=== PATIENT | female | born 1935 | race African-American/Black ===

== ENCOUNTER 2017-05-15 12:02 | Inpatient (IN) | payer OTHER, MEDICARE ==
[~2017-05-15] VITALS: Ht 162.6 cm; Wt 77.3 kg
[~2017-05-15 12:02] MED LIST: PRED10PA2 PO
[2017-05-15 12:03] VITALS: BP 156/67; PULSE 61; RESP 16; TEMP 99.2; O2SAT 97
--- NOTE | 2017-05-15 12:26 | PD ---
Physical Exam Time Seen by Provider: 12:25 Narrative 82 y/o female who it seems recently had a cardiac cath early April at [facility]. She reports she has developed some soft tissue swelling in her groin and she was seen by her PCP Dr. Thibodeaux today and sent here. Denies active bleeding , SOB, chest pain. Vital signs reviewed. Seen at triage desk. Awaiting bed placement. Data Data Last Documented VS Vital Signs Date Time Temp Pulse Resp B/P Pulse Ox O2 Delivery O2 Flow Rate FiO2 05/15/17 12:03 99.2 61 16 156/67 97 Room Air [facility] Medical Record Reviewed: Yes Supervised Visit with SABINA: Bud Nixon May 15, 2017 12:26
--- NOTE | 2017-05-15 14:54 | PD ---
HPI Chief Complaint: Medical Clearance Time Seen by Provider: 14:53 Travel History International Travel<30 days: No Contact w/Intl Traveler<30days: No Traveled to known affect area: No History of Present Illness HPI 82-year-old female came to the emergency room sent by her primary care to rule out a pseudoaneurysm. Her daughter is here with her. Patient had a cardiac catheterization done by Dr. Bailey at [facility] on the April 21. There was just a 60% blockage noticed and no stents were put in. However after she went home she has noticed that the area where the sheath was put in was very swollen and ecchymotic. And the swelling has not gone down much. In fact she is also noticed that her entire right leg is swollen. Patient went to see her primary care today and was sent here for the ultrasound. Vital signs otherwise stable. [facility] Past Medical History Narrative Medical List of her past medical, surgical, social and family history is reviewed from the nursing note. Arthritis: Yes Cardiovascular Problems: Yes Diminished Hearing: No GERD: Yes Hypertension: Yes Immunizations Current: No Menopausal: Yes Past Surgical History Hysterectomy: Yes Social History Alcohol Use: No Tobacco Use: No Substance Use: No Allergies-Medications (Allergen,Severity, Reaction): Coded Allergies: No Known Allergies (Verified , 09/23/16) Comments No known drug allergies. Reported Meds & Prescriptions Reported Meds & Active Scripts Active Narrative Medication List of her home medications reviewed from the nursing note. Review of Systems Except as stated in HPI: all other systems reviewed are Neg Physical Exam Narrative GENERAL: Awake, alert, elderly, mild distress SKIN: Focused skin assessment warm/dry. Ecchymosis in the right groin area HEAD: Atraumatic. Normocephalic. EYES: Pupils equal and round. No scleral icterus. No injection or drainage. ENT: No nasal bleeding or discharge. Mucous membranes pink and moist. NECK: Trachea midline. No JVD. CARDIOVASCULAR: Regular rate and rhythm. No murmur appreciated. RESPIRATORY: No accessory muscle use. Clear to auscultation. Breath sounds equal bilaterally. GASTROINTESTINAL: Abdomen soft, non-tender, nondistended. Hepatic and splenic margins not palpable. MUSCULOSKELETAL: No obvious deformities. No clubbing. No cyanosis. Nonpitting edema of her entire right leg which is significantly more swollen than her left NEUROLOGICAL: Awake and alert. No obvious cranial nerve deficits. Motor grossly within normal limits. Normal speech. PSYCHIATRIC: Appropriate mood and affect; insight and judgment normal. Data Data Last Documented VS Vital Signs Date Time Temp Pulse Resp B/P Pulse Ox O2 Delivery O2 Flow Rate FiO2 05/15/17 12:03 99.2 61 16 156/67 97 Room Air Orders Us Leg Hematoma/Pseudoaneurysm (05/15/17 ) Complete Blood Count With Diff (05/15/17 14:59) Basic Metabolic Panel (Bmp) (05/15/17 14:59) Prothrombin Time / Inr (Pt) (05/15/17 14:59) Type And Screen (05/15/17 14:59) Sodium Chlor 0.9% 1000 Ml Inj (Ns 1000 M (05/15/17 16:00) Admit Order (Ed Use Only) (05/15/17 17:08) Labs Laboratory Tests Test 05/15/17 15:05 White Blood Count 8.6 TH/MM3 Red Blood Count 3.61 MIL/MM3 Hemoglobin 10.8 GM/DL Hematocrit 33.5 % Mean Corpuscular Volume 92.8 FL Mean Corpuscular Hemoglobin 29.8 PG Mean Corpuscular Hemoglobin 32.1 % Concent Red Cell Distribution Width 15.7 % Platelet Count 251 TH/MM3 Mean Platelet Volume 9.6 FL Neutrophils (%) (Auto) 85.8 % Lymphocytes (%) (Auto) 9.6 % Monocytes (%) (Auto) 3.7 % Eosinophils (%) (Auto) 0.5 % Basophils (%) (Auto) 0.4 % Neutrophils # (Auto) 7.4 TH/MM3 Lymphocytes # (Auto) 0.8 TH/MM3 Monocytes # (Auto) 0.3 TH/MM3 Eosinophils # (Auto) 0.0 TH/MM3 Basophils # (Auto) 0.0 TH/MM3 CBC Comment DIFF FINAL Differential Comment Prothrombin Time 11.2 SEC Prothromb Time International 1.0 RATIO Ratio Sodium Level 146 MEQ/L Potassium Level 4.5 MEQ/L Chloride Level 114 MEQ/L Carbon Dioxide Level 24.5 MEQ/L Anion Gap 8 MEQ/L Blood Urea Nitrogen 27 MG/DL Creatinine 1.45 MG/DL Estimat Glomerular Filtration 42 ML/MIN Rate Random Glucose 104 MG/DL Calcium Level 9.8 MG/DL Blood Type O POSITIVE Antibody Screen NEGATIVE Blood Bank Comment MDM Medical Decision Making Medical Screen Exam Complete: Yes Emergency Medical Condition: Yes Medical Record Reviewed: Yes Differential Diagnosis Pseudoaneurysm, DVT, hematoma Narrative Course 4:06 PM ultrasound is suggestive of pseudoaneurysm along with DVT. I discussed the case with the vascular surgeon Dr. Cason and he wants the patient to be admitted under medical service while he will come and consult on the patient. Conveyed this to the patient as well as her daughter. Awaiting for the hospitalist to call back. Blood test results of back and patient has hypernatremic dehydration. I'm giving her 1 L of IV fluid bolus. Procedures EKG Prior to Arrival: No Physician Communication Physician Communication Dr. Cason Diagnosis Primary Impression: Pseudoaneurysm Additional Impressions: DVT (deep vein thrombosis) in Dehydration with hypernatremia Renal insufficiency Admitting Information Admitting Physician Requests: Admit Sebastián Pisano MD May 15, 2017 14:54
[2017-05-15 15:43] LABS: AUTOMATED NEUTROPHIL # 7.4 TH/MM3 (1.8-7.7); BASOPHIL % 0.4 % (0.0-2.0); EOSINOPHIL % 0.5 % (0.0-4.0); HEMATOCRIT 33.5 % (35.0-46.0); HEMO FLAGS DIFF FINAL; LYMPH % 9.6 % (9.0-44.0); LYMPHOCYTE # 0.8 TH/MM3 (1.0-4.8); MEAN CELL VOLUME 92.8 FL (80.0-100.0); MEAN CORPUSCULAR HEMOGLOBIN 29.8 PG (27.0-34.0); MEAN CORPUSCULAR HGB CONC 32.1 % (32.0-36.0); MONO % 3.7 % (0.0-8.0); NEUT % 85.8 % (16.0-70.0); PLATELET COUNT 251 TH/MM3 (150-450); RED BLOOD COUNT 3.61 MIL/MM3 (4.00-5.30); RED CELL DISTRIBUTION WIDTH 15.7 % (11.6-17.2); WHITE BLOOD COUNT 8.6 TH/MM3 (4.0-11.0)
[2017-05-15 15:45] LABS: PROTHROMBIN TIME - PATIENT 11.2 SEC (9.8-11.6)
[2017-05-15 15:47] LABS: BICARBONATE 24.5 MEQ/L (21.0-32.0); POTASSIUM 4.5 MEQ/L (3.5-5.1)
[2017-05-15] MEDS ORDERED: SODIUM CHLOR 0.9% 1000 ML INJ 1,000 ML IV ONE (16:00)
--- NOTE | 2017-05-15 17:01 | RADRPT ---
EXAM DATE/TIME: 05/15/2017 15:13 [place] COMPARISON: No previous studies available for comparison. INDICATIONS : Right leg swelling. MEDICAL HISTORY : Hypertension. Gastroesophageal reflux disease. Arthritis. SURGICAL HISTORY : Hysterectomy. Cardiac catheterization. ENCOUNTER: Initial ACUITY: 2 weeks PAIN SCORE: 6/10 LOCATION: Right leg. AREA EVALUATED: Right groin. FINDINGS: Examination demonstrates a pseudoaneurysm arising from the right common femoral artery with a short s mall neck measuring approximately 3 x 5 mm. The pseudoaneurysm measures approximately 1.9 x 2.4 cm. T here is partially occlusive chronic appearing thrombus involving the distal right iliac vein and comm on femoral vein extending to the common femoral bifurcation with some involvement of the central grea ter saphenous vein. CONCLUSION: 1. 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 2. Partially occlusive chronic appearing thrombus extending from the distal right iliac vein to the c ommon femoral vein with involvement of the central greater saphenous vein. Kayden Garcia MD on May 15, 2017 at 16:34 Board Certified Radiologist. This report was verified electronically.
[2017-05-15] MEDS ORDERED: THROMBIN (TOPICAL) 5,000 UNIT VIAL ONE (18:31)
--- NOTE | 2017-05-15 19:13 | PD.RAD ---
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 Successful thrombin injection with thrombosis of the pseudoaneurysm. Palpable right DP and dopplerable right PT prior to and following the injection. See PACS Report for procedural detail/treatment Jr. Broderick,Garcia Bales MD May 15, 2017 19:13
[2017-05-15] MEDS ORDERED: BISACODYL 10 MG SUPP RECTAL PRN (19:15)
[2017-05-15] MEDS ORDERED: MAGNESIUM HYDROXIDE SUSP 30 ML CUP PO PRN (19:15)
[2017-05-15] MEDS ORDERED: ACETAMINOPHEN/HYDROcodone 325 MG/7.5 MG TAB PO PRN (19:15)
[2017-05-15] MEDS ORDERED: NALOXONE HCL 0.4 MG/ML AMP IV PRN (19:15)
[2017-05-15] MEDS ORDERED: SODIUM CHLORIDE 0.9% FLUSH 10 ML FLUSH IV FLUSH PRN (19:15)
[2017-05-15] MEDS ORDERED: MORPHINE SULFATE 4 MG/ML INJ IV PRN (19:15)
[2017-05-15] MEDS ORDERED: ACETAMINOPHEN 325 MG TAB PO PRN (19:15)
[2017-05-15] MEDS ORDERED: SENNOSIDES 8.6 MG TAB PO PRN (19:15)
[2017-05-15] MEDS ORDERED: LACTULOSE SYRUP 20 GM/30 ML CUP PO PRN (19:15)
[2017-05-15] MEDS ORDERED: ACETAMINOPHEN/HYDROcodone 325 MG/5 MG TAB PO PRN (19:15)
[2017-05-15] MEDS ORDERED: ONDANSETRON HCL 4 MG/2 ML VIAL IVP PRN (19:15)
[2017-05-15 19:41] VITALS: BP_SYST 167; BP_SYST 178; BP_DIAS 80; PULSE 54; RESP 16; O2SAT 98
[2017-05-15 20:55] VITALS: BP 152/57; PULSE 66; RESP 17; TEMP 97.9; O2SAT 98
[2017-05-15] MEDS: DOCUSATE SODIUM 50 MG/SENNA 8.6 MG TAB PO SCH (21:00)
[2017-05-15] MEDS: SODIUM CHLORIDE 0.9% FLUSH 10 ML FLUSH IV FLUSH SCH (21:03)
[2017-05-16 00:25] VITALS: BP 159/62; PULSE 66; RESP 17; TEMP 98; O2SAT 99
--- NOTE | 2017-05-16 03:41 | HHI.HP ---
[facility] Federico Thibodeaux MD Admission Diagnosis pseudoaneurysm, DVT Diagnoses: (1) Pseudoaneurysm Chief Complaint: right groin pain Travel History International Travel<30 Days: No Contact w/Intl Traveler <30 Da: No Traveled to Known Affected Are: No History of Present Illness Written by Marjan Augustin, acting as scribe for Dr. Beltran on 05/16/17 at 03:35. Patient had an angiogram done: April 21 had cardiac cath with right groin approach at [facility] by Dr. Bailey. 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 Reported Medications Reported Meds & Active Scripts Active Prednisone (48) 10 mg tab Dose Pack (Prednisone) 10 Mg Dspk 10 Mg PO DIRECTED Allergies: Coded Allergies: No Known Allergies (Verified , 09/23/16) Active Ordered Medications Current Medications Sodium Chloride (NS 1000 ml Inj) 1,000 ml @ 999 mls/hr BOLUS ONCE IV Last administered on 05/15/17 16:13; Start 05/15/17 at 16:00; Stop 05/15/17 at 17:00 ; Status DC Thrombin (Thrombin Top Soln) 5,000 units STK-MED ONCE .ROUTE Last administered on 05/15/17 18:31; Start 05/15/17 at 18:31; Stop 05/15/17 at 18:32; Status DC Sodium Chloride (NS Flush) 2 ml UNSCH PRN IV FLUSH FLUSH AFTER USING IV ACCESS ; Start 05/15/17 at 19:15 Sodium Chloride (NS Flush) 2 ml BID IV FLUSH Last administered on 05/15/17t 21: 03; Start 05/15/17 at 21:00 Ondansetron HCl (Zofran Inj) 4 mg Q6H PRN IVP NAUSEA OR VOMITING; Start at 19:15 Acetaminophen (Tylenol) 650 mg Q6H PRN PO PAIN SCALE 1 TO 2; Start 05/15/17 at 19:15 Acetaminophen/ Hydrocodone Bitart ([place] 5-325 Mg) 1 tab Q4H PRN PO PAIN SCALE 3 TO 5; Start 05/15/17 at 19:15 Acetaminophen/ Hydrocodone Bitart ([place] 7.5-325 Mg) 1 tab Q4H PRN PO PAIN SCALE 6 TO 10; Start 05/15/17 at 19:15 Morphine Sulfate (Morphine Inj) 4 mg Q3H PRN IV BREAKTHROUGH PAIN; Start at 19:15 Naloxone HCl (Narcan Inj) 0.4 mg UNSCH PRN IV SEE LABEL COMMENTS; Start at 19:15 Senna/Docusate Sodium (Sharee-Colace) 1 tab BID PO ; Start 05/15/17 at 21:00 Magnesium Hydroxide (Milk Of Magnesia Liq) 30 ml Q12H PRN PO MILD - MODERATE CONSTIPATION; Start 05/15/17 at 19:15 Sennosides (Senokot) 17.2 mg Q12H PRN PO MODERATE - SEVERE CONSTIPATION; Start 05/15/17 at 19:15 Bisacodyl (Dulcolax Supp) 10 mg DAILY PRN RECTAL SEVERE CONSITIPATION; Start at 19:15 Lactulose (Lactulose Liq) 30 ml DAILY PRN PO SEVERE CONSITIPATION; Start at 19:15 . Family History Unable to recall any family medical problems . Social History Tobacco: quit smoking 25 years ago Alcohol: denies Illicit Drugs: denies Physical Exam Vital Signs Vital Signs Date Time Temp Pulse Resp B/P Pulse Ox O2 Delivery O2 Flow Rate FiO2 05/16/17 00:25 98.0 66 17 159/62 99 05/15/17 20:55 97.9 66 17 152/57 98 05/15/17 19:41 54 16 167/80 98 05/15/17 12:03 99.2 61 16 156/67 97 Room Air Physical Exam GENERAL: This is an elderly female patient, in no apparent distress. SKIN: No rashes. Cool and dry. Right groin with bruising and right lower extremity with edema. HEAD: Atraumatic. Normocephalic. EYES: No scleral icterus. No injection or drainage. ENT: Nose without bleeding, purulent drainage. NECK: Trachea midline. No JVD or lymphadenopathy. CARDIOVASCULAR: Regular rate and rhythm without murmurs, gallops, or rubs. RESPIRATORY: Clear to auscultation. Breath sounds equal bilaterally. No wheezes , rales, or rhonchi. GASTROINTESTINAL: Abdomen soft, non-tender, nondistended. No guarding. MUSCULOSKELETAL: Extremities without clubbing, cyanosis. No calf tenderness. NEUROLOGICAL: Awake and alert. Motor and sensory grossly within normal limits. Normal speech. . Laboratory Laboratory Tests Test 05/15/17 15:05 White Blood Count 8.6 Red Blood Count 3.61 Hemoglobin 10.8 Hematocrit 33.5 Mean Corpuscular Volume 92.8 Mean Corpuscular Hemoglobin 29.8 Mean Corpuscular Hemoglobin 32.1 Concent Red Cell Distribution Width 15.7 Platelet Count 251 Mean Platelet Volume 9.6 Neutrophils (%) (Auto) 85.8 Lymphocytes (%) (Auto) 9.6 Monocytes (%) (Auto) 3.7 Eosinophils (%) (Auto) 0.5 Basophils (%) (Auto) 0.4 Neutrophils # (Auto) 7.4 Lymphocytes # (Auto) 0.8 Monocytes # (Auto) 0.3 Eosinophils # (Auto) 0.0 Basophils # (Auto) 0.0 CBC Comment DIFF FINAL Differential Comment Prothrombin Time 11.2 Prothromb Time International 1.0 Ratio Sodium Level 146 Potassium Level 4.5 Chloride Level 114 Carbon Dioxide Level 24.5 Anion Gap 8 Blood Urea Nitrogen 27 Creatinine 1.45 Estimat Glomerular Filtration 42 Rate Random Glucose 104 Calcium Level 9.8 Blood Type O POSITIVE Antibody Screen NEGATIVE Blood Bank Comment Result Diagram: 05/15/17 1505 05/15/17 1505 Imaging Last Impressions Lower Extremity Ultrasound 05/15/17 0000 Signed Impressions: Service Date/Time: April 15:13 - CONCLUSION: 1. 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 2. Partially occlusive chronic appearing thrombus extending from the distal right iliac vein to the common femoral vein with involvement of the central greater saphenous vein. Kayden Garcia MD . Assessment and Plan Problem List: (1) Pseudoaneurysm ICD Code: I72.9 Status: Acute (2) Renal insufficiency ICD Code: N28.9 Status: Acute Assessment and Plan Pseudoaneurysm - Consulted with Dr. 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 and follow trends in renal indices - Avoid nephrotoxins .This note was transcribed by erica [Marjan Augustin]. I, Dr. Juan Beltran personally performed the history, physical exam, and medical decision making; and confirmed the accuracy of the information in the transcribed note. Authenticated by Dr. Juan Beltran on 05/16/17 at 03:35. Discussed Condition With ER physician, patient, and RN Physician Certification 2 Midnight Certification Type: Admission for Inpatient Services Order for Inpatient Services The services are ordered in accordance with Medicare regulations or non- Medicare payer requirements, as applicable. In the case of services not specified as inpatient-only, they are appropriately provided as inpatient services in accordance with the 2-midnight benchmark. Estimated LOS (days): 3 days is the estimated time the patient will need to remain in the hospital, assuming treatment plan goals are met and no additional complications. Post-Hospital Plan: Not yet determined Marjan Augustin May 16, 2017 03:41 Juan Beltran MD May 20, 2017 08:04
[2017-05-16 04:10] VITALS: BP_SYST 129; BP_SYST 161; BP_DIAS 70; BP_DIAS 71; PULSE 70; PULSE 92; RESP 17; RESP 18; TEMP 98.2; TEMP 98.5; O2SAT 96; O2SAT 98
[2017-05-16 08:00] VITALS: BP 186/74; PULSE 68; RESP 22; TEMP 98.3; O2SAT 98
--- NOTE | 2017-05-16 08:09 | MB ---
cc: ARIELLA HARRISON MD DATE OF CONSULTATION: 05/15/2017 REASON FOR CONSULTATION Pseudoaneurysm of the right common femoral artery, diabetes mellitus, DVT of the right common femoral and external iliac veins. HISTORY OF PRESENT DISEASE This pleasant 82-year-old lady about 2 weeks ago underwent a transfemoral catheterization of the heart. The patient was doing well at home and then noticed more and more pain in her right groin and presented to the hospital. She was evaluated and worked up. She was found to have a pseudoaneurysm of the right common femoral artery at the site of an arterial puncture and adjacent deep venous thrombosis. The question arises about any surgical implications. PAST SURGICAL HISTORY Negative. PAST MEDICAL HISTORY Coronary artery disease, about 60% LAD. The patient underwent catheterization as above. MEDICATIONS Medications can be found on the chart. SOCIAL HISTORY The patient does not smoke or drink. She is a bit overweight. PHYSICAL EXAMINATION GENERAL: A pleasant 82-year-old lady, awake, alert, oriented. HEENT: Normocephalic. No trauma to the head. Pupils equal and reactive. Extraocular muscles intact. NECK: Supple. Bilateral carotid pulses. No bruits. CHEST: Clear bilateral breath sounds. HEART: Regular rhythm. ABDOMEN: Soft. Active bowel sounds. Obese. No rebound. No guarding. No masses. EXTREMITIES: The patient has bilateral palpable femoral pulses and the right groin reveals an about 3 cm in diameter pulsatile mass just under the inguinal ligament consistent with a proximal common femoral artery pseudoaneurysm. Some swelling is noted in the area. When the aneurysm is compressed blood flow is diminished and the patient is having more pain. NEUROLOGIC: The patient is grossly intact. IMPRESSION AND RECOMMENDATIONS An 82-year-old lady with a pseudoaneurysm of the right groin which is causing tenderness considering this is abutting the inguinal ligament and sort of in a tight space. This is only about 2.5 cm in diameter with a narrow neck, so the appropriate way to treat this is with injection of thrombin. The majority of these will clot off in the next day or so. On the other hand the patient has additional deep venous thrombosis of the external iliac vein and common femoral vein extending into the saphenous vein. Considering that thrombosis is in deep veins (other than saphenous) the patient will need to be anticoagulated. Considering that she is going for a thrombin injection into the pseudoaneurysm the patient can then be anticoagulated the day after if the ultrasound reveals resolution of the pseudoaneurysm. If the pseudoaneurysm is still there after the thrombin injection then I will intervene surgically and repair the vessel. After that the patient can be safely anticoagulated for DVT. I will continue to follow the patient with you. Critical care 38 minutes. Thank you very much for the referral. Ariella WOODY/LANCE /6:51 PM /7:51 AM
--- NOTE | 2017-05-16 09:03 | HHI.PR ---
Subjective Remarks Right lower leg pain improved. Objective Vitals Vital Signs Date Time Temp Pulse Resp B/P Pulse Ox O2 Delivery O2 Flow Rate FiO2 05/16/17 04:10 98.2 70 17 161/71 98 05/16/17 00:25 98.0 66 17 159/62 99 05/15/17 20:55 97.9 66 17 152/57 98 05/15/17 19:41 54 16 167/80 98 05/15/17 12:03 99.2 61 16 156/67 97 Room Air I/O 05/15/17 05/15/17 05/15/17 05/16/17 05/16/17 05/16/17 07:00 15:00 23:00 07:00 15:00 23:00 Intake Total 240 ml 240 ml Balance 240 ml 240 ml Intake Oral 240 ml 240 ml # Voids 0 2 # Bowel Movements 0 0 Result Diagram: 05/15/17 1505 05/15/17 1505 Objective Remarks GENERAL: This is a well-nourished, well-developed patient, in no apparent distress. CARDIOVASCULAR: Regular rate and rhythm RESPIRATORY: Clear to auscultation. Breath sounds equal bilaterally. No wheezes , rales, or rhonchi. GASTROINTESTINAL: Abdomen soft, non-tender, nondistended. Normal active bowel sounds MUSCULOSKELETAL: Extremities without clubbing, cyanosis. Right lower groin ecchymosis, no active bleed, 2+ pitting edema and right lower extremity was swelling NEURO: Alert & Oriented x4 to person, place, time, situation. Moves all ext x4 A/P Problem List: (1) Pseudoaneurysm ICD Code: I72.9 Status: Acute (2) DVT (deep vein thrombosis) in ICD Code: O22.30 Status: Acute (3) Renal insufficiency ICD Code: N28.9 Status: Acute Assessment and Plan Pseudoaneurysm, right common femoral artery - Dr. 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 Alonso. Renal insufficiency - no prior labs for comparison - BUN 27, creatinine 1.45, estimated GFR 42 - Patient received IV fluid bolus in the ED - Repeat BMP in a.m. - Avoid nephrotoxins DVT preventionpatient has a chronic DVT and awaiting Dr. Alonso recommendation on timing of starting anticoagulation due to recent thrombin for the pseudoaneurysm Discharge Planning Possibly the morning depending on patient's stability on restart anticoagulation. Safia Clark MD May 16, 2017 09:03
[2017-05-16] MEDS ORDERED: BUSP5TAB PO (09:33)
[2017-05-16] MEDS ORDERED: ATOR40TA16 PO (09:33)
[2017-05-16] MEDS ORDERED: ENAL20TA PO (09:33)
[2017-05-16] MEDS ORDERED: METO50TA PO (09:33)
[2017-05-16] MEDS ORDERED: ASPI1TAB73 PO (09:33)
[2017-05-16] MEDS ORDERED: PRED10 PO (09:33)
[2017-05-16] MEDS: SODIUM CHLORIDE 0.9% FLUSH 10 ML FLUSH IV FLUSH SCH ×2 (09:53→22:39)
[2017-05-16] MEDS: DOCUSATE SODIUM 50 MG/SENNA 8.6 MG TAB PO SCH ×2 (09:59→22:38)
[2017-05-16 12:04] VITALS: BP 181/85; PULSE 70; RESP 22; TEMP 98; O2SAT 98
[2017-05-16] MEDS: busPIRone HCL 5 MG TAB PO SCH ×2 (13:08→18:03)
[2017-05-16] MEDS: METOPROLOL TARTRATE 50 MG TAB PO SCH ×2 (13:09→22:38)
[2017-05-16] MEDS: ENALAPRIL MALEATE 10 MG TAB PO SCH ×2 (13:09→22:38)
[2017-05-16] MEDS: ASPIRIN EC 81 MG TABEC PO SCH (13:15)
--- NOTE | 2017-05-16 14:56 | PD.CAR.PN ---
CVT Progress Note Subjective/Hospital Course: 05/16/17 This pleasant 82-year-old lady about 2 weeks ago underwent a transfemoral catheterization of the heart. The patient was doing well at home and then noticed more and more pain in her right groin and presented to the hospital. She was evaluated and worked up. She was found to have a pseudoaneurysm of the right common femoral artery at the site of an arterial puncture and adjacent deep venous thrombosis. The question arises about any surgical implications. The pseudoaneurysm measures only about 2.4 cm in diameter and therefore I asked interventional radiology to inject some thrombin into the same Thrombin has been ejected last night and patient has no pulsations anymore in this area Of course the lump from the actual hematoma will remain until it dissolves on its own At this point patient can be discharged from my point and I will see her in follow up PRN Objective: Vital Signs Date Time Temp Pulse Resp B/P Pulse Ox O2 Delivery O2 Flow Rate FiO2 05/16/17 12:04 98.0 70 22 181/85 98 05/16/17 08:00 98.3 68 22 186/74 98 05/16/17 04:10 98.2 70 17 161/71 98 05/16/17 00:25 98.0 66 17 159/62 99 05/15/17 20:55 97.9 66 17 152/57 98 05/15/17 19:41 54 16 167/80 98 Result Diagram: 05/15/17 1505 05/15/17 1505 Ariella Soria MD May 16, 2017 14:56
[2017-05-16 16:00] VITALS: BP 160/63; PULSE 57; RESP 20; TEMP 97.5; O2SAT 98
[2017-05-16] MEDS ORDERED: LATA0.002 EACH EYE (18:09)
[2017-05-16 20:20] VITALS: BP 186/74; PULSE 60; RESP 18; TEMP 97.6; O2SAT 97
[2017-05-16] MEDS ORDERED: ATORVASTATIN 40 MG TAB PO SCH (21:00)
[2017-05-17 00:20] VITALS: BP 186/74; PULSE 56; RESP 17; TEMP 98.6; O2SAT 98
[2017-05-17] MEDS ORDERED: amLODIPine BESYLATE 5 MG TAB PO ONE (02:30)
[2017-05-17 04:15] VITALS: BP 178/77; PULSE 58; RESP 17; TEMP 98.3; O2SAT 98
[2017-05-17 08:00] VITALS: BP 166/62; PULSE 58; RESP 17; TEMP 98.5; O2SAT 98
[2017-05-17] MEDS: DOCUSATE SODIUM 50 MG/SENNA 8.6 MG TAB PO SCH (09:00)
[2017-05-17] MEDS: SODIUM CHLORIDE 0.9% FLUSH 10 ML FLUSH IV FLUSH SCH (09:00)
[2017-05-17 09:10] VITALS: PULSE 70
[2017-05-17] MEDS: busPIRone HCL 5 MG TAB PO SCH ×2 (09:12→13:00)
[2017-05-17] MEDS: METOPROLOL TARTRATE 50 MG TAB PO SCH (09:12)
[2017-05-17] MEDS: ENALAPRIL MALEATE 10 MG TAB PO SCH (09:12)
[2017-05-17] MEDS: ASPIRIN EC 81 MG TABEC PO SCH (09:12)
[2017-05-17] MEDS ORDERED: XARE20TA PO (11:11)
[2017-05-17] MEDS ORDERED: XARE15TA PO (11:11)
[2017-05-17 11:45] VITALS: BP 150/56; PULSE 61; RESP 18; TEMP 98.4; O2SAT 98
--- NOTE | 2017-05-17 17:33 | RADRPT ---
EXAM DATE/TIME: 05/15/2017 18:30 [facility] COMPARISON: No previous studies available for comparison. INDICATIONS : Patient with hx of cardiac cath. Right groin pain. MEDICAL HISTORY : 1.CAD 2Arthritis 3.DVT 4. HTN 5. GERD SURGICAL HISTORY : 1. Cardiac cath 2. Hysterectomy ENCOUNTER: Initial ACUITY: 2 weeks PAIN SCORE: 4/10 LOCATION: Right groin IMAGE SERIES: ACCESS SITE: Right femoral vein MEDICATION(S): 1.) 1000 units Thrombin PROCEDURE : 1. Ultrasound guided puncture of pseudoaneurysm. 2. Thrombin injection of pseudoaneurysm. I reviewed the ultrasound of the groin prior to the procedure. There is a pseudoaneurysm coursing ant erior to the common femoral artery with a narrow neck suitable for thrombin injection. The risks, brett efits and alternatives to the procedure were explained and verbal and written consent was obtained. The site was prepped in sterile fashion. Full sterile technique was used, including cap, mask, steri le gloves and gown and a large sterile sheet. Hand hygiene and 2% chlorhexidine and/or betadine/alco hol prep was utilized per protocol for cutaneous antisepsis. The skin and subcutaneous tissues were infiltrated with local anesthetic solution. Ultrasonography was performed of the pseudoaneurysm in the right groin. With ultrasound guidance the pulsatile mass was punctured and the prescribed dose of thrombin was injected. Followup ultrasound e xamination demonstrates complete stasis of flow within the pseudoaneurysm. CONCLUSION: Uncomplicated occlusion of pseudoaneurysm as above. It is my understanding this patient is being kathia monty on Coumadin. This could cause recanalization of the pseudoaneurysm. If this does occur the Coumad in would need to be halted and repeat injection could be considered. Garcia Villafana Jr., MD on May 17, 2017 at 17:28 Board Certified Radiologist. This report was verified electronically.
--- NOTE | 2017-05-19 11:43 | HHI.DS ---
Discharge Summary Admission Date May 15, 2017 at 17:10 Discharge Date: May 17, 2017 Admitting Diagnosis pseudoaneurysm, DVT (1) Pseudoaneurysm ICD Code: I72.9 (2) DVT (deep vein thrombosis) in ICD Code: O22.30 (3) Renal insufficiency ICD Code: N28.9 Procedures thrombectomy. Please see report. Brief History - From Admission Written by Marjan Augustin, acting as scribe for Dr. Beltran on 05/16/17 at 03:35. Patient had an angiogram done: April 21 had cardiac cath with right groin approach at [facility] by Dr. Bailey. 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 2. Partially occlusive chronic appearing thrombus extending from the distal right iliac vein to the common femoral vein with involvement of the central greater saphenous vein. Kayden Garcia MD Embolization, Transcatheter 05/15/17 0000 Signed Impressions: Service Date/Time: April 18:30 - CONCLUSION: Uncomplicated occlusion of pseudoaneurysm as above. It is my understanding this patient is being placed on Coumadin. This could cause recanalization of the pseudoaneurysm. If this does occur the Coumadin would need to be halted and repeat injection could be considered. Garcia Villafana Jr., MD PE at Discharge GENERAL: This is a well-nourished, well-developed patient, in no apparent distress. CARDIOVASCULAR: Regular rate and rhythm RESPIRATORY: Clear to auscultation. Breath sounds equal bilaterally. No wheezes , rales, or rhonchi. GASTROINTESTINAL: Abdomen soft, non-tender, nondistended. Normal active bowel sounds MUSCULOSKELETAL: Extremities without clubbing, cyanosis. Right lower groin ecchymosis, no active bleed, 1+ pitting edema and right lower extremity NEURO: Alert & Oriented x4 to person, place, time, situation. Moves all ext x4 Pt update on day of discharge patient feeling well. Says she is ready to go home. Hospital Course Patient underwent thrombectomy by interventional radiology. Patient will be able to restart anticoagulation area and follow up with vascular surgery as outpatient. For from a summary for most recent progress note, please see below. Pseudoaneurysm, right common femoral artery - Dr. 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 Alonso. Renal insufficiency - no prior labs for comparison - BUN 27, creatinine 1.45, estimated GFR 42 - Patient received IV fluid bolus in the ED - Repeat BMP in a.m. - Avoid nephrotoxins DVT preventionpatient has a chronic DVT and awaiting Dr. Alonso recommendation on timing of starting anticoagulation due to recent thrombin for the pseudoaneurysm Pt Condition on Discharge: Good Discharge Disposition: Discharge Home Discharge Time: <= 30 minutes Discharge Instructions DIET: Follow Instructions for: Heart Healthy Diet Activities you can perform: Regular-No Restrictions Follow up Referrals: PCP Follow-up - 1 Week with Federico Thibodeaux MD Vascular Surgery - 2 Weeks with Ariella Soria MD New Medications: Rivaroxaban (Xarelto) 15 Mg Tab 15 MG PO Q12HR Blood Clot Prevention #42 Ref 0 TAB Rivaroxaban (Xarelto) 20 Mg Tab 20 MG PO DAILY Start this after intial course of Xarelto 15mg tabs. Blood Clot Prevention #30 Ref 0 TAB Continued Medications: Aspirin DR (Nani Aspirin EC Low Dose) 81 Mg Tabdr 1 TAB PO DAILY Atorvastatin (Atorvastatin) 40 Mg Tab 40 MG PO HS Cholesterol Management #30 Ref 0 TAB Buspirone (Buspirone) 5 Mg Tab 5 MG PO TID Anxiety Ref 0 TAB Enalapril (Enalapril) 20 Mg Tab 20 MG PO BID #30 Ref 0 TAB Latanoprost Opth Drops (Latanoprost Opth Drops) 0.005% Drops 1 DROP EACH EYE HS Refrigerate until opened. Glaucoma #2.5 Ref 0 ML Metoprolol Tartrate (Metoprolol Tartrate) 50 Mg Tab 50 MG PO BID #60 Ref 0 TAB Prednisone (Prednisone) 10 Mg Tab 10 MG PO DAILY Ref 0 TAB Brendan Hsieh MD May 19, 2017 11:43
== END 2017-05-17 14:21 | disposition home or self-care (01) | DRG 315 ==
LOC: NEPD 12:02 → NEDA 17:10 → N06B 20:50
PROVIDERS: ADMIT Internal Medicine; ATTEND Internal Medicine
PROC: 3E053GC Introduction of Other Therapeutic Substance into Peripheral Artery, Percutaneous Approach (ICD-10-PCS; principal; 2017-05-15)
DX: I97.89 Other postprocedural complications and disorders of the circulatory system, not elsewhere classified (principal); E87.0 Hyperosmolality and hypernatremia; E11.9 Type 2 diabetes mellitus without complications; I82.511 Chronic embolism and thrombosis of right femoral vein; I82.521 Chronic embolism and thrombosis of right iliac vein; I72.4 Aneurysm of artery of lower extremity; E86.0 Dehydration; I10 Essential (primary) hypertension; I25.10 Atherosclerotic heart disease of native coronary artery without angina pectoris; K21.9 Gastro-esophageal reflux disease without esophagitis; N28.9 Disorder of kidney and ureter, unspecified; M19.90 Unspecified osteoarthritis, unspecified site; Y84.0 Cardiac catheterization as the cause of abnormal reaction of the patient, or of later complication, without mention of misadventure at the time of the procedure; Z87.891 Personal history of nicotine dependence
CPT/HCPCS: 36002; 76942; 80048; 85025; 85610; 86850; 86900; 86901; 93926; 96360; J7030

== ENCOUNTER 2017-08-07 09:54 | Observation (INO) | payer MEDICARE, OTHER ==
[~2017-08-07] VITALS: Ht 160 cm; Wt 70.0 kg
[~2017-08-07 09:54] MED LIST changes: +ASPI1TAB73 PO; +ATOR40TA16 PO; +BUSP5TAB PO; +ENAL20TA PO; +LATA0.002 EACH EYE; +METO50TA PO; +PRED10 PO; -PRED10PA2 PO; +XARE15TA PO; +XARE20TA PO
[2017-08-07 10:00] VITALS: BP 190/80; PULSE 86; RESP 16; TEMP 98.4; O2SAT 96
[2017-08-07] MEDS ORDERED: OLAN5TAB PO (10:33)
--- NOTE | 2017-08-07 10:58 | PD ---
HPI Chief Complaint: Medical Clearance Time Seen by Provider: 10:15 Travel History International Travel<30 days: No Contact w/Intl Traveler<30days: No Traveled to known affect area: No History of Present Illness HPI This is an 82-year-old female who presents to the emergency department having increasingly bizarre behavior. Her daughter went over to her house this morning and close were strewn on the floor and the patient said that her grandmother had been there but her grandmother is . Her daughter reports that she hasn't been taking her medications and she's been more difficult to deal with. Her symptoms of been constant, worsening over the past several months, and have not been improving despite taking her off of prednisone. She does receive Zyprexa but sometimes she refuses to take it. Her daughter think she probably has dementia although she doesn't have a formal diagnosis. PFSH Past Medical History Arthritis: Yes Cardiovascular Problems: Yes Diminished Hearing: No Gastrointestinal Disorders: Yes GERD: Yes Genitourinary: No Hypertension: Yes Musculoskeletal: Yes Neurologic: No Psychiatric: Yes (hallucinations ) Reproductive: No Respiratory: No Immunizations Current: No ?: Not Menopausal: Yes Past Surgical History Cardiac Surgery: Yes (CARDIAC CATH - 60% BLOCKAGE) Hysterectomy: Yes Social History Alcohol Use: No Tobacco Use: No Substance Use: No Allergies-Medications (Allergen,Severity, Reaction): Coded Allergies: No Known Allergies (Verified , 08/07/17) Reported Meds & Prescriptions Reported Meds & Active Scripts Active Xarelto (Rivaroxaban) 20 Mg Tab 20 Mg PO DAILY Start this after intial course of Xarelto 15mg tabs. Reported Olanzapine 5 Mg Tab 5 Mg PO DAILY Enalapril (Enalapril Maleate) 20 Mg Tab 20 Mg PO BID Atorvastatin (Atorvastatin Calcium) 40 Mg Tab 40 Mg PO HS Buspirone (Buspirone HCl) 5 Mg Tab 5 Mg PO TID Metoprolol Tartrate 50 Mg Tab 50 Mg PO BID Review of Systems ROS Limitations: Poor Historian Physical Exam Narrative GENERAL:Well appearing, no acute distress SKIN: Focused skin assessment warm and dry. HEAD: Atraumatic. Normocephalic. EYES: Pupils equal and round. No injection or drainage. ENT: Moist mucous membranes NECK: Trachea midline. CARDIOVASCULAR: Regular rate and rhythm. No murmur appreciated. RESPIRATORY: Clear to auscultation. Breath sounds equal bilaterally. GASTROINTESTINAL: Abdomen soft, non-tender, nondistended. MUSCULOSKELETAL: No obvious deformities. NEUROLOGICAL: Oriented to person and place but not time. No obvious cranial nerve deficits. Moving all extremities. Does acknowledge some visual hallucinations. PSYCHIATRIC: Appropriate mood and affect; insight and judgment normal. Data Data Last Documented VS Vital Signs Date Time Temp Pulse Resp B/P (MAP) Pulse Ox O2 Delivery O2 Flow Rate FiO2 08/07/17 11:28 67 16 182/75 (110) 95 Room Air 08/07/17 10:00 98.4 Orders Orders Complete Blood Count With Diff (08/07/17 10:24) Comprehensive Metabolic Panel (08/07/17 10:24) ^ Insert Iv (08/07/17 10:24) Ct Brain W/O Iv Contrast(Rout) (08/07/17 ) Urinalysis - C+S If Indicated (08/07/17 10:24) Cath For Specimen (08/07/17 10:24) Urine Culture (08/07/17 11:05) Ceftriaxone Inj (Rocephin Inj) (08/07/17 13:30) Admit Order (Ed Use Only) (08/07/17 13:56) Labs Laboratory Tests Test 08/07/17 10:45 08/07/17 11:05 White Blood Count 5.8 TH/MM3 Red Blood Count 3.81 MIL/MM3 Hemoglobin 11.6 GM/DL Hematocrit 34.6 % Mean Corpuscular Volume 90.8 FL Mean Corpuscular Hemoglobin 30.5 PG Mean Corpuscular Hemoglobin Concent 33.6 % Red Cell Distribution Width 16.1 % Platelet Count 180 TH/MM3 Mean Platelet Volume 10.5 FL Neutrophils (%) (Auto) 60.9 % Lymphocytes (%) (Auto) 26.3 % Monocytes (%) (Auto) 8.5 % Eosinophils (%) (Auto) 3.5 % Basophils (%) (Auto) 0.8 % Neutrophils # (Auto) 3.5 TH/MM3 Lymphocytes # (Auto) 1.5 TH/MM3 Monocytes # (Auto) 0.5 TH/MM3 Eosinophils # (Auto) 0.2 TH/MM3 Basophils # (Auto) 0.0 TH/MM3 CBC Comment DIFF FINAL Differential Comment Blood Urea Nitrogen 24 MG/DL Creatinine 1.51 MG/DL Random Glucose 85 MG/DL Total Protein 6.7 GM/DL Albumin 3.6 GM/DL Calcium Level 9.8 MG/DL Alkaline Phosphatase 66 U/L Aspartate Amino Transf (AST/SGOT) 33 U/L Alanine Aminotransferase (ALT/SGPT) 31 U/L Total Bilirubin 0.5 MG/DL Sodium Level 143 MEQ/L Potassium Level 4.2 MEQ/L Chloride Level 113 MEQ/L Carbon Dioxide Level 23.5 MEQ/L Anion Gap 7 MEQ/L Estimat Glomerular Filtration Rate 40 ML/MIN Urine Color LIGHT-YELLOW Urine Turbidity CLEAR Urine pH 5.5 Urine Specific [place] 1.010 Urine Protein NEG mg/dL Urine Glucose (UA) NEG mg/dL Urine Ketones NEG mg/dL Urine Occult Blood NEG Urine Nitrite NEG Urine Bilirubin NEG Urine Urobilinogen LESS THAN 2.0 MG/DL Urine Leukocyte Esterase LARGE Urine RBC 1 /hpf Urine WBC 3 /hpf Urine Squamous Epithelial Cells <1 /hpf Urine Bacteria OCC /hpf Urine Mucus FEW /lpf Microscopic Urinalysis Comment CATH-CULTURE IND MDM Medical Decision Making Medical Screen Exam Complete: Yes Emergency Medical Condition: Yes Interpretation(s) Afebrile, no tachycardia, hypertensive No leukocytosis Renal insufficiency Urinalysis: Large leukocyte esterase with occasional bacteria Last [address] 08/07/17 0000 Signed Impressions: Service Date/Time: July 11:49 - CONCLUSION: 1. Severe periventricular and subcortical white matter small vessel ischemic changes bilaterally. 2. 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 3. Ventriculomegaly suggesting central cerebral atrophy. Hydrocephalus could also have this appearance. Clinical correlation is recommended. 4. No acute infarct, acute hemorrhage, mass effect or extraaxial fluid collections. Jett Clifford MD Differential Diagnosis Dementia, psychosis, delusional disorder, urinary tract infection, electrolyte abnormality Narrative Course This is an 82-year-old female who presents to the emergency department with increasing hallucinations and confusion. She appears to have been developing dementia over the past several months but her daughter says she is getting very confused at home and she destroyed the front room of her house today thinking that her grandmother had been there and taken out all her clothes. She has placed on a monitor and an IV was established. Labs are obtained which were reassuring. Urinalysis is a possible urinary tract infection. I think patient requires observation for IV antibiotics and psychiatry consultation. This may be dementia but the fact that the patient is hallucinating is concerning and she'll likely requires additional assessment Diagnosis Primary Impression: Altered mental status Qualified Codes: R41.82 - Altered mental status, unspecified Admitting Information Admitting Physician Requests: Elise Lo MD Aug 07, 2017 10:58
[2017-08-07 11:28] VITALS: BP 182/75; PULSE 67; RESP 16; O2SAT 95
[2017-08-07 11:29] LABS: AUTOMATED NEUTROPHIL # 3.5 TH/MM3 (1.8-7.7); BASOPHIL % 0.8 % (0.0-2.0); EOSINOPHIL # 0.2 TH/MM3 (0-0.4); EOSINOPHIL % 3.5 % (0.0-4.0); HEMATOCRIT 34.6 % (35.0-46.0); HEMO FLAGS DIFF FINAL; LYMPH % 26.3 % (9.0-44.0); LYMPHOCYTE # 1.5 TH/MM3 (1.0-4.8); MEAN CELL VOLUME 90.8 FL (80.0-100.0); MEAN CORPUSCULAR HEMOGLOBIN 30.5 PG (27.0-34.0); MEAN CORPUSCULAR HGB CONC 33.6 % (32.0-36.0); MONO % 8.5 % (0.0-8.0); NEUT % 60.9 % (16.0-70.0); PLATELET COUNT 180 TH/MM3 (150-450); RED BLOOD COUNT 3.81 MIL/MM3 (4.00-5.30); RED CELL DISTRIBUTION WIDTH 16.1 % (11.6-17.2); WHITE BLOOD COUNT 5.8 TH/MM3 (4.0-11.0)
[2017-08-07 11:40] LABS: BACTERIA, URINE OCC /hpf; BLOOD, URINE NEG (NEG); COMMENT (UR) CATH-CULTURE IND; CULTURE IF INDICATED CATH CULTURE IND; GLUCOSE,URINE NEG (NEG); KETONE, URINE NEG (NEG); MUCUS URINE FEW /lpf (OCC); NITRITE,URINE NEG (NEG); PH, URINE 5.5 (5.0-8.5); SQUAMOUS EPITHELIAL CELL URINE <1 /hpf (0-5); URINE COLOR LIGHT-YELLOW (YELLW/STRAW)
[2017-08-07 11:46] LABS: ALT (GPT) 31 U/L (10-53); ANION GAP 7 MEQ/L (5-15); AST (GOT) 33 U/L (15-37); BICARBONATE 23.5 MEQ/L (21.0-32.0); BLOOD UREA NITROGEN 24 MG/DL (7-18); CHLORIDE 113 MEQ/L (98-107); GLOMERULAR FILTRATION RATE 40 ML/MIN (>89); SODIUM (NA) 143 MEQ/L (136-145)
[2017-08-07 11:47] LABS: POTASSIUM 4.2 MEQ/L (3.5-5.1)
[2017-08-07 11:48] LABS: ALKALINE PHOSPHATASE 66 U/L (45-117); TOTAL BILIRUBIN ADULT 0.5 MG/DL (0.2-1.0)
--- NOTE | 2017-08-07 13:20 | RADRPT ---
EXAM DATE/TIME: 08/07/2017 11:49 [facility] COMPARISON: No previous studies available for comparison. INDICATIONS : Altered mental status, hallucinations. RADIATION DOSE: 56.35 CTDIvol (mGy) MEDICAL HISTORY : Cardiovascular disease. Hypertension. SURGICAL HISTORY : Hysterectomy. ENCOUNTER: Initial ACUITY: 1 day PAIN SCALE: 0/10 LOCATION: cranial TECHNIQUE: Multiple contiguous axial images were obtained of the head. Using automated exposure control and adj ustment of the mA and/or kV according to patient size, radiation dose was kept as low as reasonably a chievable to obtain optimal diagnostic quality images. DICOM format image data is available electro nically for review and comparison. FINDINGS: Severe periventricular and subcortical white matter small vessel ischemic changes are noted bilateral ly. Left posteroparietal encephalomalacia is noted likely related to previous infarct. Central cerebral atrop hy is likely. There is no acute infarct, acute hemorrhage, mass effect or extraaxial fluid collections. The bone w indows are unremarkable. CONCLUSION: 1. Severe periventricular and subcortical white matter small vessel ischemic changes bilaterally. 2. 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 3. Ventriculomegaly suggesting central cerebral atrophy. Hydrocephalus could also have this appeara nce. Clinical correlation is recommended. 4. No acute infarct, acute hemorrhage, mass effect or extraaxial fluid collections. Jett Clifford MD on August 07, 2017 at 12:09 Board Certified Radiologist. This report was verified electronically.
[2017-08-07] MEDS ORDERED: cefTRIAXone INJ 1,000 MG in SODIUM CHLORIDE 0.9% INJ 100 ML IV ONE (13:30)
[2017-08-07] MEDS ORDERED: ONDANSETRON HCL 4 MG/2 ML VIAL IVP PRN (14:15)
[2017-08-07] MEDS ORDERED: SODIUM CHLORIDE 0.9% FLUSH 10 ML FLUSH IV FLUSH PRN (14:15)
[2017-08-07] MEDS ORDERED: NALOXONE HCL 0.4 MG/ML AMP IV PUSH PRN (14:15)
[2017-08-07] MEDS ORDERED: MAGNESIUM HYDROXIDE SUSP 30 ML CUP PO PRN ×2 (14:15→16:30)
[2017-08-07 14:21] VITALS: BP 166/68; PULSE 82; RESP 16; O2SAT 97
[2017-08-07 15:04] VITALS: BP 197/87; PULSE 77; RESP 20; TEMP 97.8; O2SAT 99
[2017-08-07] MEDS ORDERED: ENOXAPARIN SODIUM 30 MG/0.3 ML SYRINGE SQ SCH (16:00)
[2017-08-07 16:16] VITALS: BP 170/72
--- NOTE | 2017-08-07 16:26 | HHI.HP ---
[facility] Service [facility] Primary Care Physician Federico Thibodeaux MD Admission Diagnosis hallucinations, uti Diagnoses: (1) Urinary tract infection Diagnosis: Principal Travel History International Travel<30 Days: No Contact w/Intl Traveler <30 Da: No Traveled to Known Affected Are: No History of Present Illness Mrs. Bueno is an 82-year-old female. She was admitted secondary to increasing confusion, visual hallucinations, and mood changes with aggression. At baseline she lives alone but across the street from her daughter. She has dementia but is functional at baseline. Due to confusion and dementia a full history is not possible. She denies any pain or nausea. Review of Systems ROS Limitations: Altered Mental Status, Uncooperative, Poor Historian Past Family Social History Past Medical History Coronary artery disease Hypertension Osteoarthritis Gastroesophageal reflux disease Past Surgical History Hysterectomy Cardiac catheterization Reported Medications Reported Meds & Active Scripts Active Xarelto (Rivaroxaban) 20 Mg Tab 20 Mg PO DAILY Start this after intial course of Xarelto 15mg tabs. Reported Olanzapine 5 Mg Tab 5 Mg PO DAILY Enalapril (Enalapril Maleate) 20 Mg Tab 20 Mg PO BID Atorvastatin (Atorvastatin Calcium) 40 Mg Tab 40 Mg PO HS Buspirone (Buspirone HCl) 5 Mg Tab 5 Mg PO TID Metoprolol Tartrate 50 Mg Tab 50 Mg PO BID Allergies: Coded Allergies: No Known Allergies (Verified , 08/07/17) Family History Unable to obtain secondary to patient's confusion and dementia Social History No alcohol abuse history No illicit drug abuse history No smoking history Patient lives alone with frequent supervision Physical Exam Vital Signs Vital Signs Date Time Temp Pulse Resp B/P (MAP) Pulse Ox O2 Delivery O2 Flow Rate FiO2 08/07/17 15:10 08/07/17 15:04 97.8 77 20 197/87 (123) 99 08/07/17 14:21 82 16 166/68 (100) 97 Room Air 08/07/17 11:28 67 16 182/75 (110) 95 Room Air 08/07/17 10:00 98.4 86 16 190/80 (116) 96 Physical Exam GENERAL: NAD, A&Ox1 HEAD: Normocephalic. NECK: Supple, trachea midline. No lymphadenopathy. EYES: No scleral icterus. No injection or drainage. CARDIOVASCULAR: Regular rate and rhythm without murmurs, gallops, or rubs. RESPIRATORY: Breath sounds equal bilaterally. No accessory muscle use. GASTROINTESTINAL: Abdomen soft, non-tender, nondistended. MUSCULOSKELETAL: No cyanosis, or edema. SKIN: Warm and dry. NEURO: No focal neurological deficitis. Laboratory Laboratory Tests Test 08/07/17 10:45 08/07/17 11:05 White Blood Count 5.8 Red Blood Count 3.81 Hemoglobin 11.6 Hematocrit 34.6 Mean Corpuscular Volume 90.8 Mean Corpuscular Hemoglobin 30.5 Mean Corpuscular Hemoglobin Concent 33.6 Red Cell Distribution Width 16.1 Platelet Count 180 Mean Platelet Volume 10.5 Neutrophils (%) (Auto) 60.9 Lymphocytes (%) (Auto) 26.3 Monocytes (%) (Auto) 8.5 Eosinophils (%) (Auto) 3.5 Basophils (%) (Auto) 0.8 Neutrophils # (Auto) 3.5 Lymphocytes # (Auto) 1.5 Monocytes # (Auto) 0.5 Eosinophils # (Auto) 0.2 Basophils # (Auto) 0.0 CBC Comment DIFF FINAL Differential Comment Blood Urea Nitrogen 24 Creatinine 1.51 Random Glucose 85 Total Protein 6.7 Albumin 3.6 Calcium Level 9.8 Alkaline Phosphatase 66 Aspartate Amino Transf (AST/SGOT) 33 Alanine Aminotransferase (ALT/SGPT) 31 Total Bilirubin 0.5 Sodium Level 143 Potassium Level 4.2 Chloride Level 113 Carbon Dioxide Level 23.5 Anion Gap 7 Estimat Glomerular Filtration Rate 40 Urine Color LIGHT-YELLOW Urine Turbidity CLEAR Urine pH 5.5 Urine Specific [place] 1.010 Urine Protein NEG Urine Glucose (UA) NEG Urine Ketones NEG Urine Occult Blood NEG Urine Nitrite NEG Urine Bilirubin NEG Urine Urobilinogen LESS THAN 2.0 Urine Leukocyte Esterase LARGE Urine RBC 1 Urine WBC 3 Urine Squamous Epithelial Cells <1 Urine Bacteria OCC Urine Mucus FEW Microscopic Urinalysis Comment CATH-CULTURE IND Date/Time Source Procedure Growth Status 08/07/17 11:05 Urine Catheterized Urine Urine Culture Pending Received Result Diagram: 08/07/17 1045 08/07/17 1045 Imaging Last Impressions Head CT 08/07/17 0000 Signed Impressions: Service Date/Time: July 11:49 - CONCLUSION: 1. Severe periventricular and subcortical white matter small vessel ischemic changes bilaterally. 2. 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 3. Ventriculomegaly suggesting central cerebral atrophy. Hydrocephalus could also have this appearance. Clinical correlation is recommended. 4. No acute infarct, acute hemorrhage, mass effect or extraaxial fluid collections. MD Helena Aguirre VTE Risk Assessment Caprini VTE Risk Assessment: No/Low Risk (score <= 1) Caprini Risk Assessment Model Point Value = 1 Point Value = 2 Point Value = 3 Point Value = 5 Age 41-60 Minor surgery BMI > 25 kg/m2 Swollen legs Varicose veins or History of unexplained or recurrent spontaneous Oral contraceptives or hormone replacement Sepsis (< 1 month) Serious lung disease, including pneumonia (< 1 month) Abnormal pulmonary function Acute myocardial infarction Congestive heart failure (< 1 month) History of inflammatory bowel disease Medical patient at bed rest Age 61-74 Arthroscopic surgery Major open surgery (> 45 min) Laparoscopic surgery (> 45 min) Malignancy Confined to bed (> 72 hours) Immobilizing plaster cast Central venous access Age >= 75 History of VTE Family history of VTE Factor V Leiden Prothrombin [id number] Lupus anticoagulant Anticardiolipin antibodies Elevated serum homocysteine Heparin-induced thrombocytopenia Other congenital or acquired thrombophilia Stroke (< 1 month) Elective arthroplasty Hip, pelvis, or leg fracture Acute spinal cord injury (< 1 month) Prophylaxis Regimen Total Risk Factor Score Risk Level Prophylaxis Regimen 0-1 Low Early ambulation 2 Moderate Order ONE of the following: *Sequential Compression Device (SCD) *Heparin 5000 units SQ BID 3-4 Higher Order ONE of the following medications: *Heparin 5000 units SQ TID *Enoxaparin/Lovenox 40 mg SQ daily (WT < 150 kg, CrCl > 30 mL/min) *Enoxaparin/Lovenox 30 mg SQ daily (WT < 150 kg, CrCl > 10-29 mL/min) *Enoxaparin/Lovenox 30 mg SQ BID (WT < 150 kg, CrCl > 30 mL/min) AND/OR *Sequential Compression Device (SCD) 5 or more Highest Order ONE of the following medications: *Heparin 5000 units SQ TID (Preferred with Epidurals) *Enoxaparin/Lovenox 40 mg SQ daily (WT < 150 kg, CrCl > 30 mL/min) *Enoxaparin/Lovenox 30 mg SQ daily (WT < 150 kg, CrCl > 10-29 mL/min) *Enoxaparin/Lovenox 30 mg SQ BID (WT < 150 kg, CrCl > 30 mL/min) AND *Sequential Compression Device (SCD) Assessment and Plan Problem List: (1) Urinary tract infection ICD Code: N39.0 - Urinary tract infection, site not specified (2) Encephalopathy, unspecified ICD Code: G93.40 - Encephalopathy, unspecified Assessment and Plan Assessment and plan 82-year-old female admitted secondary to confusion, visual hallucinations, mood changes, and urinary tract infection Urinary tract infection Rocephin Probiotics Follow urine cultures Potential contribution to patient's mental status changes Mood changes Encephalopathy, unspecified Acute confusion Visual hallucinations Psychiatry consult Continue baseline psychiatric treatments Coronary artery disease No chest pain Follow clinically Gastroesophageal reflux disease Continue baseline treatments Hypertension Continue baseline treatments Follow blood pressure DVT prophylaxis Rickie Saeed MD Aug 07, 2017 16:26
[2017-08-07] MEDS: LACTOBACILLUS ACIDOPHILUS TAB PO SCH (18:27)
[2017-08-07 20:30] VITALS: BP 178/77; PULSE 73; RESP 16; TEMP 98.2; O2SAT 97
[2017-08-07] MEDS: DOCUSATE SODIUM 100 MG CAP PO SCH (21:51)
[2017-08-07] MEDS: SODIUM CHLORIDE 0.9% FLUSH 10 ML FLUSH IV FLUSH SCH (21:51)
[2017-08-08 01:19] VITALS: BP 178/80; PULSE 80; RESP 16; TEMP 98.6; O2SAT 96
[2017-08-08 05:12] VITALS: BP 194/83; PULSE 83; RESP 18; TEMP 98.4; O2SAT 99
[2017-08-08 05:19] VITALS: BP 164/70
[2017-08-08 08:04] LABS: ANION GAP 8 MEQ/L (5-15); AST (GOT) 25 U/L (15-37); BICARBONATE 24.4 MEQ/L (21.0-32.0); BLOOD UREA NITROGEN 18 MG/DL (7-18); CHLORIDE 111 MEQ/L (98-107); GLOMERULAR FILTRATION RATE 48 ML/MIN (>89); SODIUM (NA) 143 MEQ/L (136-145)
[2017-08-08 08:06] LABS: AUTOMATED NEUTROPHIL # 3.5 TH/MM3 (1.8-7.7); BASOPHIL % 0.7 % (0.0-2.0); EOSINOPHIL # 0.2 TH/MM3 (0-0.4); HEMATOCRIT 36.8 % (35.0-46.0); HEMO FLAGS DIFF FINAL; LYMPH % 25.3 % (9.0-44.0); LYMPHOCYTE # 1.4 TH/MM3 (1.0-4.8); MEAN CELL VOLUME 90.5 FL (80.0-100.0); MEAN CORPUSCULAR HEMOGLOBIN 29.8 PG (27.0-34.0); MEAN CORPUSCULAR HGB CONC 32.9 % (32.0-36.0); MONO % 7.4 % (0.0-8.0); NEUT % 62.6 % (16.0-70.0); PLATELET COUNT 169 TH/MM3 (150-450); RED BLOOD COUNT 4.06 MIL/MM3 (4.00-5.30); RED CELL DISTRIBUTION WIDTH 15.9 % (11.6-17.2); WHITE BLOOD COUNT 5.5 TH/MM3 (4.0-11.0)
[2017-08-08 08:08] LABS: ALKALINE PHOSPHATASE 54 U/L (45-117); ALT (GPT) 26 U/L (10-53); TOTAL BILIRUBIN ADULT 0.6 MG/DL (0.2-1.0)
[2017-08-08 08:37] VITALS: BP_SYST 194; BP_SYST 205; BP_DIAS 83; BP_DIAS 84; PULSE 78; RESP 18; TEMP 98.8; O2SAT 98
[2017-08-08] MEDS ORDERED: ENALAPRIL MALEATE 10 MG TAB PO SCH (09:00)
[2017-08-08] MEDS ORDERED: RIVAROXABAN 20 MG TAB PO SCH (09:00)
[2017-08-08] MEDS ORDERED: OLANZapine 5 MG TAB PO SCH (09:00)
[2017-08-08] MEDS ORDERED: cloNIDine HCL 0.1 MG TAB PO PRN (09:00)
[2017-08-08] MEDS ORDERED: METOPROLOL TARTRATE 50 MG TAB PO SCH (09:00)
[2017-08-08] MEDS: LACTOBACILLUS ACIDOPHILUS TAB PO SCH ×2 (09:21→12:38)
[2017-08-08] MEDS: busPIRone HCL 5 MG TAB PO SCH ×2 (09:21→12:38)
[2017-08-08] MEDS: SODIUM CHLORIDE 0.9% FLUSH 10 ML FLUSH IV FLUSH SCH (09:21)
[2017-08-08] MEDS: DOCUSATE SODIUM 100 MG CAP PO SCH (09:21)
[2017-08-08 11:20] VITALS: BP 136/61; PULSE 66; RESP 18; TEMP 98.2; O2SAT 96
--- NOTE | 2017-08-08 11:32 | PD.PSY.CON ---
Provisional Diagnosis Admission Date Aug 07, 2017 at 13:59 [place] I. Unspecified psychosis, r/o medical induce psychosis, r/o major neurocognitive disorder [place] II. Deferred [place] III. CAD, UTI, GERD [place] IV. Continues visual hallucinations [place] V. 35 History of Present Illness Service Psychiatry Consult Requested By ER team Reason for Consult Visual hallucinations, paranoia Primary Care Physician Federico Thibodeaux MD HPI The patient is an 82-year-old , woman, , domiciled alone , but she lives across the [address] with her daughter, supported by Social Security, with psychiatric history of anxiety and unspecified psychosis, dementia, no psychiatric hospitalizations, no previous suicidal attempts, she is on BuSpar 5 mg 3 times a day, olanzapine 5 mg by PCP, medical history of GERD , CAD, who was admitted secondary to increasing confusion, visual hallucinations, and mood changes with aggression. On observation due to Urinary tract infection treated with Rocephin. Consulted to psychiatry due to increased visual hallucinations and aggressive behavior at home. On psychiatric evaluation patient is calm, cooperative, but pleasantly confused. Patient doesn't know the reason of her hospitalization. He says that she is here because her mother sent her here. She says that she lives with her mother and her daughter. She reports good mood, denies depressive symptoms, denies anxiety, he does report having visual hallucinations of seeing people coming into his room, and shadows. Patient denies agitation and aggressive behavior, she denies paranoia. He does seem to be internally preoccupied. She denies suicidal and homicidal ideation. Patient is oriented just in person and partially in place. Declined to continue cognitive assessment. She denies the use of drugs and alcohol. I is her daughter as collateral information, Nieves Messina, , who confirms that the patient is demented, but functional. She used to forgets name and recent situations, she is still take care of herself. Her daughter says that in the last weeks and has been increasingly agitated and disorganized, having conversation with people who are not present, closing the windows of the house stating that there are people that want to harm her. Her PCP started her an antipsychotic anxiety medications , but the patient has responded poorly. Review of Systems Except as stated in HPI: all other systems reviewed are Neg Past Family Social History Coded Allergies: No Known Allergies (Verified , 08/07/17) Active Scripts Rivaroxaban (Xarelto) 20 Mg Tab, 20 MG PO DAILY for Blood Clot Prevention, #30 TAB 0 Refills Start this after intial course of Xarelto 15mg tabs. Prov:Brendan Hsieh MD 05/17/17 Reported Medications Olanzapine (Olanzapine) 5 Mg Tab, 5 MG PO DAILY, #30 TAB 0 Refills 08/07/17 Enalapril (Enalapril) 20 Mg Tab, 20 MG PO BID, #30 TAB 0 Refills 05/16/17 Atorvastatin (Atorvastatin) 40 Mg Tab, 40 MG PO HS for Cholesterol Management, # 30 TAB 0 Refills 05/16/17 Buspirone (Buspirone) 5 Mg Tab, 5 MG PO TID for Anxiety, TAB 0 Refills 05/16/17 Metoprolol Tartrate (Metoprolol Tartrate) 50 Mg Tab, 50 MG PO BID, #60 TAB 0 Refills 05/16/17 Current Medications Medications (Trade) Dose Ordered Sig/Rose Route Start Time Stop Time Status Last Admin (NS Flush) 2 ml UNSCH PRN IV FLUSH 08/07/17 14:15 (NS Flush) 2 ml BID IV FLUSH 08/07/17 21:00 08/08/17 09:21 (Zofran Inj) 4 mg Q6H PRN IVP 08/07/17 14:15 (Narcan Inj) 0.4 mg UNSCH PRN IV PUSH 08/07/17 14:15 Ceftriaxone Sodium 1000 mg/ Sodium Chloride 100 ml @ 200 mls/hr Q24H IV 08/08/17 13:00 (Lactinex) 1 tab TID PO 08/07/17 18:00 08/08/17 09:21 (Colace) 100 mg BID PO 08/07/17 21:00 08/08/17 09:21 (Milk Of Magnesia Liq) 30 ml DAILY PRN PO 08/07/17 16:30 (Lipitor) 40 mg HS PO 08/08/17 21:00 (Buspar) 5 mg TID PO 08/08/17 09:00 08/08/17 09:21 (Vasotec) 20 mg BID PO 08/08/17 09:00 08/08/17 09:21 (Lopressor) 50 mg BID PO 08/08/17 09:00 08/08/17 09:21 (ZyPREXA) 5 mg DAILY PO 08/08/17 09:00 08/08/17 09:21 (Xarelto) 20 mg DAILY PO 08/08/17 09:00 08/08/17 09:21 (Catapres) 0.1 mg Q6H PRN PO 08/08/17 09:00 Family Psych History Patient denies family psychiatric history Social History Patient was born and raised in [place], she lives in [place] alone, but her daughter lives in for her house, she is unemployed, , supported by Social Security Patient's Strengths (min. 2) Family support Physical Exam No EPS, no tremors, no psychomotor agitation or retardation, no prominent gait disturbance Vital Signs Vital Signs Date Time Temp Pulse Resp B/P (MAP) Pulse Ox O2 Delivery O2 Flow Rate FiO2 08/08/17 08:37 98.8 78 18 205/84 (124) 98 194/83 (120) 08/07/17 14:21 Room Air Lab Results Test 08/08/17 06:30 White Blood Count 5.5 TH/MM3 Red Blood Count 4.06 MIL/MM3 Hemoglobin 12.1 GM/DL Hematocrit 36.8 % Mean Corpuscular Volume 90.5 FL Mean Corpuscular Hemoglobin 29.8 PG Mean Corpuscular Hemoglobin Concent 32.9 % Red Cell Distribution Width 15.9 % Platelet Count 169 TH/MM3 Mean Platelet Volume 10.0 FL Neutrophils (%) (Auto) 62.6 % Lymphocytes (%) (Auto) 25.3 % Monocytes (%) (Auto) 7.4 % Eosinophils (%) (Auto) 4.0 % Basophils (%) (Auto) 0.7 % Neutrophils # (Auto) 3.5 TH/MM3 Lymphocytes # (Auto) 1.4 TH/MM3 Monocytes # (Auto) 0.4 TH/MM3 Eosinophils # (Auto) 0.2 TH/MM3 Basophils # (Auto) 0.0 TH/MM3 CBC Comment DIFF FINAL Differential Comment Blood Urea Nitrogen 18 MG/DL Creatinine 1.28 MG/DL Random Glucose 108 MG/DL Total Protein 6.6 GM/DL Albumin 3.6 GM/DL Calcium Level 10.0 MG/DL Alkaline Phosphatase 54 U/L Aspartate Amino Transf (AST/SGOT) 25 U/L Alanine Aminotransferase (ALT/SGPT) 26 U/L Total Bilirubin 0.6 MG/DL Sodium Level 143 MEQ/L Potassium Level 4.0 MEQ/L Chloride Level 111 MEQ/L Carbon Dioxide Level 24.4 MEQ/L Anion Gap 8 MEQ/L Estimat Glomerular Filtration Rate 48 ML/MIN Date/Time Source Procedure Growth Status 08/07/17 11:05 Urine Catheterized Urine Urine Culture Pending Received Mental Status Examination Appearance: Appropriate Consciousness: Alert Orientation: Person Motor Activity: Normal gait Speech: Unremarkable Language: Adequate Fund of Knowledge: Adequate Attention and Concentration: Adequate Memory: Impaired Mood: Appropriate Affect: Appropriate Thought Process & Associations: Intact Thought Content: Appropriate Hallucination Type: Visual Delusion Type: Paranoid Suicidal Ideation: No Suicidal Plan: No Suicidal Intention: No Homicidal Ideation: No Homicidal Plan: No Homicidal Intention: No Insight: Adequate Judgment: Adequate Assessment & Plan Problem List: (1) Unspecified psychosis ICD Codes: F29 - Unspecified psychosis not due to a substance or known physiological condition Assessment & Plan: On psychiatric evaluation the patient presents with ongoing distressing, increasing frequency and severity, anxiety provoking visual hallucinations of people walking out of her house, coming inside her room and shadows. As per daughter, this visual hallucinations has driven the patient to be very paranoid, agitated and aggressive. This new-onset psychosis has been treated by PCP with olanzapine 5 mg with poor results. Patient has dementia at baseline, but as per daughter quite functional. Mini-Mental state and draw clock could not be completed due to lack of cooperation. At this point is unclear if the etiology of this perceptual disturbances and paranoia related with an underlying medical conditions, patient had a UTI that was treated already in the ER, or may be related with an underlying major neurocognitive disorder with a primary major psychiatric psychotic disorder. However, patient is to be admitted for safety and stabilization. I will Partida act the patient myself. Will restart olanzapine 5 mg at bedtime and BuSpar 5 mg 3 times a day for anxiety. Will order EKG, TSH, B12, folate levels. Brain CT results reviewed. Amauri consider neurology consult for EEG and to explore neurological causes of visual hallucinations. Please, transfer to psychiatry once medically appropriate. Consult appreciated. Assessment & Plan Estimated LOS: Rubens Prado MD Aug 08, 2017 11:32
--- NOTE | 2017-08-08 11:46 | HHI.PR ---
Subjective Remarks Follow-up for altered mental status. The patient was brought in for increasing confusion, visual hallucinations, mood changes, aggression, refusing to take medications at home. Currently the patient is seen with her "Aunt" at bedside. The patient states that she's been feeling depressed. States she has been urinating, no burning. She denies any fever, reports subjective chills. She hasn't had much been appetite, denies any nausea or vomiting. She states she doesn't like how many medications she has to take in all the pills make her throat sore. She states that she was taking a blood thinner, but her daughter stopped giving it to her. She states occasionally her legs hurt when she walks. Objective Vitals Vital Signs Date Time Temp Pulse Resp B/P (MAP) Pulse Ox O2 Delivery O2 Flow Rate FiO2 08/08/17 11:20 98.2 66 18 136/61 (86) 96 08/08/17 08:37 98.8 78 18 205/84 (124) 98 194/83 (120) 08/08/17 05:19 164/70 (101) 08/08/17 05:12 98.4 83 18 194/83 (120) 99 08/08/17 01:19 98.6 80 16 178/80 (112) 96 08/07/17 20:30 98.2 73 16 178/77 (110) 97 08/07/17 16:16 170/72 (104) 08/07/17 15:10 08/07/17 15:04 97.8 77 20 197/87 (123) 99 08/07/17 14:21 82 16 166/68 (100) 97 Room Air I/O 08/07/17 08/07/17 08/07/17 08/08/17 08/08/17 08/08/17 07:00 15:00 23:00 07:00 15:00 23:00 Intake Total 100 ml Balance 100 ml Intake IV Total 100 ml # Voids 3 1 2 # Bowel Movements 1 1 Result Diagram: 08/08/17 0630 08/08/17 0630 Imaging Last Impressions Head CT 08/07/17 0000 Signed Impressions: Service Date/Time: July 11:49 - CONCLUSION: 1. Severe periventricular and subcortical white matter small vessel ischemic changes bilaterally. 2. 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 3. Ventriculomegaly suggesting central cerebral atrophy. Hydrocephalus could also have this appearance. Clinical correlation is recommended. 4. No acute infarct, acute hemorrhage, mass effect or extraaxial fluid collections. Jett Clifford MD Objective Remarks GENERAL: Well-developed well-nourished. In no acute distress. SKIN: Warm and dry. No lesions noted. HEENT: Normocephalic. Pupils equal and round. Mucous membranes pink and moist. CARDIOVASCULAR: Regular rate and rhythm. No murmur appreciated. RESPIRATORY: No accessory muscle use. Clear to auscultation. Breath sounds equal bilaterally. GASTROINTESTINAL: Abdomen soft, non-tender, nondistended. Bowel sounds x4. MUSCULOSKELETAL: No obvious deformities. No clubbing or cyanosis. No edema. No definite calf swelling or TTP. NEUROLOGICAL: Awake and alert. Moves upper and lower extremities spontaneously. Normal speech. PSYCHIATRIC: Pleasantly confused mood and affect A/P Problem List: (1) Urinary tract infection ICD Code: N39.0 - Urinary tract infection, site not specified (2) Encephalopathy, unspecified ICD Code: G93.40 - Encephalopathy, unspecified Assessment and Plan 82-year-old female admitted secondary to confusion, visual hallucinations, mood changes, and possible urinary tract infection Urinary tract infection UA borderline, however was sent for culture. Afebrile with no leukocytosis. On empiric IV Rocephin and urine culture is pending -Continue on IV or by mouth antibiotics and follow up final urine culture results Mood changes Encephalopathy, unspecified Acute confusion Visual hallucinations Suspect secondary to dementia with agitation as well as refusal to take home psychotropics. Head CT does show chronic small vessel ischemic changes, suggestion of central cerebral atrophy and old posterior parietal infarct; reviewed and discussed with Dr. Guy, likely chronic changes. Patient would likely not be cooperative for MRI at this time, but could consider nonemergent brain MRI in the future to further evaluate head CT findings when behaviors are better controlled. 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 Follow-up lower extremity Doppler. Likely discharge to inpatient psychiatry later today on oral antibiotics. Addendum 1300: Right lower extremity ultrasound no longer shows any DVT and as patient has been noncompliant with Xarelto, would not continue Xarelto at this time. The patient has received IV Rocephin 2 for possible UTI, will continue on a third day of antibiotics with oral Cipro pending urine culture. Discharge to inpatient psychiatry. Problem Qualifiers (1) Urinary tract infection: Qualified Codes: N39.0 - Urinary tract infection, site not specified; R31.9 - Hematuria, unspecified Be Farfan Aug 08, 2017 11:46
--- NOTE | 2017-08-08 12:41 | RADRPT ---
EXAM DATE/TIME: 08/08/2017 12:20 [facility] COMPARISON: No previous studies available for comparison. INDICATIONS : Right leg pain. MEDICAL HISTORY : Hypertension. Gastroesophageal reflux disease. Arthritis. SURGICAL HISTORY : Hysterectomy. Cardiac catheterization. ENCOUNTER: Subsequent ACUITY: 1 day PAIN SCORE: 4/10 LOCATION: Right leg. TECHNIQUE: Venous ultrasound of the leg was performed from the inguinal ligament to the proximal calf. Real-gemma e, color Doppler and spectral tracing, compression and augmentation techniques were used. FINDINGS: There is normal compressibility of the deep venous system from the inguinal region to the proximal ca lf. No echogenic clot is seen in the lumen of the common femoral, femoral, popliteal, and posterior tibial veins. There is a normal response of the venous system to proximal and distal augmentation an d respiration. CONCLUSION: Normal examination. Luiz Rojas MD on August 08, 2017 at 12:38 Board Certified Radiologist. This report was verified electronically.
[2017-08-08] MEDS ORDERED: CIPR250T52 PO (12:58)
[2017-08-08] MEDS ORDERED: cefTRIAXone INJ 1,000 MG in SODIUM CHLORIDE 0.9% INJ 100 ML IV SCH (13:00)
[2017-08-08] MEDS ORDERED: ATORVASTATIN 40 MG TAB PO SCH (21:00)
== END 2017-08-08 15:17 ==
LOC: NEPD 09:54 → NEDA 13:59 → NEPHCDU 14:56
PROVIDERS: ADMIT Hospitalist; ATTEND Hospitalist
DX: N39.0 Urinary tract infection, site not specified (principal); B96.4 Proteus (mirabilis) (morganii) as the cause of diseases classified elsewhere; M79.661 Pain in right lower leg; R44.1 Visual hallucinations; F03.90 Unspecified dementia, unspecified severity, without behavioral disturbance, psychotic disturbance, mood disturbance, and anxiety; I25.10 Atherosclerotic heart disease of native coronary artery without angina pectoris; I10 Essential (primary) hypertension; K21.9 Gastro-esophageal reflux disease without esophagitis; M19.90 Unspecified osteoarthritis, unspecified site; Z79.01 Long term (current) use of anticoagulants
CPT/HCPCS: 70450; 80053; 81001; 85025; 87077; 87086; 87186; 93971; 96365; 97162; 99285; G0378; G8987; G8988; J0696

== ENCOUNTER 2017-08-08 15:35 | Inpatient (IN) | payer OTHER, MEDICARE ==
[~2017-08-08 15:35] MED LIST changes: -ASPI1TAB73 PO; +CIPR250T52 PO; -LATA0.002 EACH EYE; +OLAN5TAB PO; -PRED10 PO; -XARE15TA PO
[2017-08-08 15:49] VITALS: BP 163/79; PULSE 62; RESP 17; TEMP 97.4; O2SAT 99
[2017-08-08] MEDS ORDERED: MAGNESIUM HYDROXIDE SUSP 30 ML CUP PO PRN (16:00)
[2017-08-08] MEDS ORDERED: ALUMINUM/MAGNESIUM/SIMETH 30 ML CUP PO PRN (16:00)
[2017-08-08] MEDS ORDERED: ACETAMINOPHEN 325 MG TAB PO PRN (16:00)
--- NOTE | 2017-08-08 17:19 | HHI.HP ---
Provisional Diagnosis Admission Date Aug 08, 2017 at 15:35 [place] I. 1. Dementia with behavioral disturbance Rule out component of delirium [place] II. Deferred Certification of Person's Competence To Provide Express and Informed Consent I have personally examined Jillian Bueno , a person being served at [facility] on, Aug 08, 2017 17:19. Express and informed consent means consent voluntarily given in writing, by a competent person, after sufficient explanation and disclosure of the subject matter involved to enable the person to make a knowing and willful decision without any element of force, fraud, deceit, duress, or other form of constraint or coercion. This person is 18 years of age or older, is not now known to be incompetent to consent to treatment with a guardian advocate, and does not have a health care surrogate or proxy currently making medical treatment decisions. I have found this person to be one of the following: [] Competent to provide express and informed consent, as defined above, for voluntary admission to this facility and is competent to provide express and informed consent for treatment. He/she has the consistent capacity to make well reasoned, willful, and knowing decisions concerning his or her medical or mental health treatment. The person fully and consistently understands the purpose of the admission for examination/placement and is fully capable of personally exercising all rights assured [place] [x] Incompetent to provide express and informed consent to voluntary admission, and this is incompetent to provide express and informed consent to treatment. The person must be transferred to involuntary status and a petition for a guardian advocate filed with the Circuit Court. [] Refusing to provide express and informed consent to voluntary admission but is competent to provide express and informed consent for treatment. The person must be discharged or transferred to involuntary status. Form shall be completed within 24 hours of a person's arrival at the receiving facility and filed in the clinical record of each person: 1. Admitted on a voluntary basis 2. Permitted to provide express and informed consent to his/her own treatment 3. Allowed to transfer from involuntary to voluntary status 4. Prior to permitting a person to consent to his or her own treatment after having been previously found incompetent to consent to treatment. History of Present Illness Capacity: Lacks Capacity HPI Ms. Bueno is an 82-year-old female with a chart history of dementia who presented initially to the emergency department for bizarre behavior. She was admitted to the clinical decision unit for possible UTI. She was seen in consultation by Dr. Sanchez who place the patient under a Partida act and recommended admission to the inpatient psychiatric unit. Reviewing the electronic medical record, I see no prior psychiatric contact within our system. Patient seen and examined. Chart reviewed. Case discussed with nursing staff. On my examination today, the patient presents as tearful and somewhat irritable. She perseverates on her mother, who reportedly when she was 89 years old. She appears quite confused, see full mental status testing below. She denies any audiovisual hallucinations. Denies any suicidal or homicidal ideation but admitted she's been feeling fairly depressed, reportedly since her mother's passing. No hypomanic or manic symptoms. Psychiatric interview is somewhat limited because of the patient's current psychological distress and also because of her cognitive impairment. Past psychiatric history: The patient is likely an unreliable historian but denies a history of psychiatric diagnosis. She denies a history of inpatient or outpatient psychiatric treatment. She denies a history of suicide attempts. Review of Systems ROS Limitations: Poor Historian Except as stated in HPI: all other systems reviewed are Neg Past Psych History Psychological trauma history No reported trauma history to me Violence risk - others (6 mos) Lower imminent risk. No homicidal ideation. Violence risk - self (6 mos) Indeterminate. Possible self-care deficit. Substance Abuse History Drugs/Alcohol past 12 months Patient denies any abuse of drugs or alcohol. Past Family Social History Coded Allergies: No Known Allergies (Verified , 08/07/17) Past Medical History See electronic medical record Active Scripts Ciprofloxacin (Cipro) 250 Mg Tab, 250 MG PO BID for Infection, #2 TAB 0 Refills Prov:Be Farfan 08/08/17 Reported Medications Olanzapine (Olanzapine) 5 Mg Tab, 5 MG PO DAILY, #30 TAB 0 Refills 08/07/17 Enalapril (Enalapril) 20 Mg Tab, 20 MG PO BID, #30 TAB 0 Refills 05/16/17 Atorvastatin (Atorvastatin) 40 Mg Tab, 40 MG PO HS for Cholesterol Management, # 30 TAB 0 Refills 05/16/17 Buspirone (Buspirone) 5 Mg Tab, 5 MG PO TID for Anxiety, TAB 0 Refills 05/16/17 Metoprolol Tartrate (Metoprolol Tartrate) 50 Mg Tab, 50 MG PO BID, #60 TAB 0 Refills 05/16/17 Discontinued Scripts Rivaroxaban (Xarelto) 20 Mg Tab, 20 MG PO DAILY for Blood Clot Prevention, #30 TAB 0 Refills Start this after intial course of Xarelto 15mg tabs. Prov:Brendan Hsieh MD 05/17/17 Current Medications Medications (Trade) Dose Ordered Sig/Rose Route Start Time Stop Time Status Last Admin (Tylenol) 650 mg Q4H PRN PO 08/08/17 16:00 (Mag-Al Plus Susp Liq) 30 ml Q6H PRN PO 08/08/17 16:00 (Habitrol 21 Mg Patch.24 Hr) 1 patch DAILY T-DERMAL 08/09/17 09:00 Miscellaneous Information 1 DAILY T-DERMAL 08/09/17 09:00 (Lipitor) 40 mg HS PO 08/08/17 21:00 (Buspar) 5 mg TID PO 08/08/17 18:00 (Cipro) 250 mg BID PO 08/08/17 21:00 (Vasotec) 20 mg BID PO 08/08/17 21:00 (Lopressor) 50 mg BID PO 08/08/17 21:00 (ZyPREXA) 5 mg DAILY PO 08/09/17 09:00 Family Psych History Patient denies any family history of mental illness. Social History Patient reports that she lives across the street from her daughter. She is high school educated. She is retired but previously worked as a maid. She is and her ex- is . In addition to her daughter, she has a son who lives in [place]. Patient's Strengths (min. 2) In a monitored setting. Verbally fluent. Physical Exam Physical examination completed by providers in the CDU. On my examination today , the patient appears to be in no acute physical distress. No motor abnormalities noted. Labs and vitals reviewed: Vital Signs Vital Signs Date Time Temp Pulse Resp B/P (MAP) Pulse Ox O2 Delivery O2 Flow Rate FiO2 08/08/17 15:49 97.4 62 17 163/79 (107) 99 Lab Results Item Value Date Time White Blood Count 5.5 TH/MM3 08/08/17 0630 Hemoglobin 12.1 GM/DL 10/20/17 0630 Platelet Count 169 TH/MM3 08/08/17629 Sodium Level 143 MEQ/L 08/08/17629 Potassium Level 4.0 MEQ/L 08/08/17629 Chloride Level 111 MEQ/L H 08/08/17629 Carbon Dioxide Level 24.4 MEQ/L 08/08/17629 Blood Urea Nitrogen 18 MG/DL 08/08/17629 Creatinine 1.28 MG/DL H 08/08/17629 Aspartate Amino Transf (AST/SGOT) 25 U/L 08/08/17629 Alanine Aminotransferase (ALT/SGPT) 26 U/L 08/08/17629 Total Protein 6.6 GM/DL 08/08/17629 Alkaline Phosphatase 54 U/L 08/08/17629 Albumin 3.6 GM/DL 08/08/17629 Urinalysis results reviewed. Urine culture preliminary read as less than 10, 000 gram-negative rods. Lower extremity Doppler negative for DVT. Head CT reveals chronic small vessel disease and ventriculomegaly suggestive of atrophy. 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 No acute process. Mental Status Examination Appearance: Disheveled (in hospital attire) Consciousness: Alert Orientation: Person, Place ([facility]), Date/Time (July but gives year as 1969 ) Motor Activity: Other (ambulates with walker) Speech: Unremarkable Language: Adequate Fund of Knowledge: Poor (decreased) Attention and Concentration: Easily Distracted Memory: Impaired (registration 3 out of 3 in recall 0 out of 3 at 3 minutes. Able to name the current president and the preceding president but none before that. Able to spell word world forward but not backward. Able to name 2 items and repeat a phrase.) Mood: Other (depressed) Affect: Other (tearful and dysphoric) Thought Process & Associations: Other (perseverative) Hallucination Type: None Delusion Type: None Suicidal Ideation: No (unreliable to contract for safety) Suicidal Plan: No Suicidal Intention: No Homicidal Ideation: No Homicidal Plan: No Homicidal Intention: No Insight: Poor Judgment: Poor Assessment & Plan Problem List: (1) Dementia ICD Codes: F03.90 - Unspecified dementia without behavioral disturbance Assessment & Plan 82-year-old female with psychiatric history as detailed above presents in transfer from the medical floor under a Part[place] act. Per Dr. Sanchez's documentation based on collateral from daughter, patient increasingly disorganized, agitated and hallucinating over the last several weeks. Patient was initially thought to have a urinary tract infection in the ED, although urine culture preliminary read is not suggestive of this. No clear laboratory abnormalities suggestive of a delirium. The patient does have a chart history of dementia and may be experiencing a dementia with behavioral disturbance. Patient requires psychiatric hospitalization at this time for safety, observation and stabilization. Admit inpatient. Involuntary status. I've completed first opinion. Consult for second opinion. Request healthcare surrogate and guardian advocate. Continue Zyprexa 5 mg at bedtime as ordered by Dr. Sanchez. I will also continue the BuSpar as patient seems quite anxious. Continue antihypertensives , statin and Cipro with further adjustments as per the hospitalist. Check TSH, B12, ammonia, RPR for reversible causes of acute confusional state/psychosis. Hospitalist consult; I note that the hospitalist has ordered an EEG study and seizure precautions. PT/OT/falls precautions. Vitals every shift. Counselor to see and obtain collateral. Disposition planning. Estimated length of stay: 5-7 days. Discharge Planning Pending stabilization Request HC Surrog/Guard Advoc?: Yes Problem Qualifiers (1) Dementia: Qualified Codes: G30.8 - Other Alzheimer's disease; F02.81 - Dementia in other diseases classified elsewhere with behavioral disturbance Amish Hou MD Aug 08, 2017 17:19
[2017-08-08] MEDS: busPIRone HCL 5 MG TAB PO SCH (17:20)
[2017-08-08] MEDS ORDERED: OLANZapine 5 MG TAB PO SCH (21:00)
[2017-08-08] MEDS: ENALAPRIL MALEATE 10 MG TAB PO SCH (21:00)
[2017-08-08] MEDS: ATORVASTATIN 40 MG TAB PO SCH (21:00)
[2017-08-08] MEDS: METOPROLOL TARTRATE 50 MG TAB PO SCH (21:00)
[2017-08-08] MEDS: CIPROFLOXACIN 250 MG TAB PO SCH (21:00)
[2017-08-08] MEDS ORDERED: HALOPERIDOL LACTATE 5 MG/ML AMP IM ONE (23:15)
[2017-08-09 00:35] VITALS: BP 139/98
[2017-08-09] MEDS ORDERED: HALOPERIDOL LACTATE 5 MG/ML AMP IM STA (04:51)
[2017-08-09 08:57] LABS: ANION GAP 10 MEQ/L (5-15); BICARBONATE 24.5 MEQ/L (21.0-32.0); BLOOD UREA NITROGEN 21 MG/DL (7-18); CHLORIDE 111 MEQ/L (98-107); GLOMERULAR FILTRATION RATE 43 ML/MIN (>89); POTASSIUM 3.5 MEQ/L (3.5-5.1); SODIUM (NA) 145 MEQ/L (136-145)
[2017-08-09] MEDS: busPIRone HCL 5 MG TAB PO SCH ×3 (08:58→18:10)
[2017-08-09] MEDS: ENALAPRIL MALEATE 10 MG TAB PO SCH ×2 (08:59→21:35)
[2017-08-09] MEDS: NICOTINE 21 MG/24 HR PATCH T-DERMAL SCH (09:00)
[2017-08-09] MEDS ORDERED: OLANZapine 5 MG TAB PO SCH (09:00)
[2017-08-09] MEDS: REMOVE OLD PATCH T-DERMAL SCH (09:00)
[2017-08-09] MEDS: METOPROLOL TARTRATE 50 MG TAB PO SCH ×2 (09:00→21:35)
[2017-08-09] MEDS: CIPROFLOXACIN 250 MG TAB PO SCH ×2 (09:00→21:35)
[2017-08-09 09:01] LABS: HDL CHOLESTEROL 99.4 MG/DL (40.0-60.0); LDL CHOLESTEROL 66 MG/DL (0-99)
[2017-08-09 09:11] VITALS: BP 171/80; RESP 18
--- NOTE | 2017-08-09 10:40 | PD.CONS ---
[facility] Request[facility] By [facility]iatry Reason for Consult Medical management Primary Care Physician Federico Thibodeaux MD Diagnoses: History of Present Illness 82-year-old female with a history of dementia, hyperlipidemia, hypertension, was brought from her local nursing facility on 08/07/17 secondary to bizarre behavior, was found to have UTI for which she was started on antibiotic. Right lower extremity DVT was ruled out with Doppler, as patient had previous history of DVT. Patient was made Partida act by psychiatry. She was medically cleared and transferred to inpatient psych yesterday 08/08/17.[facility] has been consulted for medical management. Patient was seen in the break room, although quiet however she was not that cooperative. Review of Systems ROS Limitations: Uncooperative, Poor Historian Past Family Social History Allergies: Coded Allergies: No Known Allergies (Verified , 08/07/17) Past Medical History Coronary artery disease Hypertension Osteoarthritis Gastroesophageal reflux disease Past Surgical History Hysterectomy Cardiac catheterization Family History Not relevant secondary to patient's advanced age Social History No alcohol abuse history No illicit drug abuse history No smoking history Patient lives alone with frequent supervision Physical Exam Vital Signs Vital Signs Date Time Temp Pulse Resp B/P (MAP) Pulse Ox O2 Delivery O2 Flow Rate FiO2 08/09/17 09:11 18 171/80 (110) 08/09/17 00:35 139/98 (112) 08/08/17 20:16 08/08/17 20:16 08/08/17 15:49 97.4 62 17 163/79 (107) 99 Physical Exam GENERAL: Frail elderly patient sitting in a chair SKIN: No rashes, ecchymoses or lesions. Cool and dry. HEAD: Atraumatic. Normocephalic. No temporal or scalp tenderness. EYES: Pupils equal round and reactive. Extraocular motions intact. No scleral icterus. No injection or drainage. ENT: Nose without bleeding, purulent drainage or septal hematoma. Throat without erythema, tonsillar hypertrophy or exudate. Uvula midline. Airway patent. NECK: Trachea midline. No JVD or lymphadenopathy. Supple, nontender, no meningeal signs. CARDIOVASCULAR: Regular rate and rhythm without murmurs, gallops, or rubs. RESPIRATORY: Clear to auscultation. Breath sounds equal bilaterally. No wheezes , rales, or rhonchi. GASTROINTESTINAL: Abdomen soft, non-tender, nondistended. No hepato-splenomegaly , or palpable masses. No guarding. MUSCULOSKELETAL: Extremities without clubbing, cyanosis, or edema. No joint tenderness, effusion, or edema noted. No calf tenderness. Negative Homans sign bilaterally. NEUROLOGICAL: Awake and alert. Cranial nerves II through XII intact. Motor and sensory grossly within normal limits. Five out of 5 muscle strength in all muscle groups. Normal speech. Laboratory Laboratory Tests Test 08/09/17 08:15 Blood Urea Nitrogen 21 Creatinine 1.42 Random Glucose 150 Calcium Level 9.9 Sodium Level 145 Potassium Level 3.5 Chloride Level 111 Carbon Dioxide Level 24.5 Anion Gap 10 Estimat Glomerular Filtration Rate 43 Ammonia 23 Triglycerides Level 80 Cholesterol Level 181 LDL Cholesterol 66 HDL Cholesterol 99.4 Cholesterol/HDL Ratio 1.82 Vitamin B12 Level 512 Thyroid Stimulating Hormone 3rd Gen 1.260 Result Diagram: 08/09/17 0815 Assessment and Plan Assessment and Plan 82 year-old female with Acute mood disorder Management per psychiatry Urinary tract infection Currently on Cipro 250 mg by mouth twice a day ( end date 08/13/17) Monitor for sign of infections Previous history of Right lower extremity DVT Right lower extremity Doppler on 08/08/17 was negative for DVT, therefore Xarelto has not been resumed. Patient was previously noncompliant with it Hypertension Continue with enalapril 20 mg by mouth twice a day, Lopressor 25 mg twice a day Hyperlipidemia On Lipitor 40 mg at bedtime DVT prophylaxis: Encourage ambulation Thank you for this consultation Discussed Condition With Petr Forbes MD Aug 09, 2017 10:40
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
--- NOTE | 2017-08-09 17:31 | EKG ---
Date Performed: 08/09/2017 Time Performed: 12:41:58 PTAGE: 82 years EKG: sr PREVIOUS TRACING : 11/05/2002 10.26 Compared to prior tracing no significant change DOCTOR: Jared Rowley Interpretating Date/Time 08/09/2017 17:30:53
[2017-08-09] MEDS: ATORVASTATIN 40 MG TAB PO SCH (21:35)
[2017-08-09] MEDS: OLANZapine 5 MG TAB PO SCH (21:36)
[2017-08-10] MEDS ORDERED: OLANZapine IM 10 MG VIAL IM ONE (01:00)
[2017-08-10 05:11] VITALS: BP 197/81; PULSE 80; RESP 20; TEMP 97.8; O2SAT 95
[2017-08-10] MEDS: CIPROFLOXACIN 250 MG TAB PO SCH (08:42)
[2017-08-10] MEDS: busPIRone HCL 5 MG TAB PO SCH ×3 (08:42→18:18)
[2017-08-10] MEDS: REMOVE OLD PATCH T-DERMAL SCH (08:43)
[2017-08-10] MEDS: METOPROLOL TARTRATE 50 MG TAB PO SCH (08:43)
[2017-08-10] MEDS: ENALAPRIL MALEATE 10 MG TAB PO SCH (08:43)
[2017-08-10] MEDS: NICOTINE 21 MG/24 HR PATCH T-DERMAL SCH (08:43)
[2017-08-10 09:46] VITALS: BP 138/62
--- NOTE | 2017-08-10 10:39 | HHI.PR ---
Subjective Remarks Patient seen and examined, she was seen in the break room. Vitals stable, Objective Vitals Vital Signs Date Time Temp Pulse Resp B/P (MAP) Pulse Ox O2 Delivery O2 Flow Rate FiO2 08/10/17 09:46 138/62 (87) 08/10/17 05:11 97.8 80 20 197/81 (119) 95 I/O 08/09/17 08/09/17 08/09/17 08/10/17 08/10/17 08/10/17 07:00 15:00 23:00 07:00 15:00 23:00 Intake Total 0 ml 160 ml Balance 0 ml 160 ml Intake Oral 0 ml 160 ml # Voids 1 # Bowel Movements 0 Result Diagram: 08/09/17 1058 Objective Remarks GENERAL: NAD SKIN: Warm and dry. HEAD: Normocephalic. EYES: No scleral icterus. No injection or drainage. NECK: Supple, trachea midline. No JVD or lymphadenopathy. CARDIOVASCULAR: Regular rate and rhythm without murmurs, gallops, or rubs. RESPIRATORY: Breath sounds equal bilaterally. No accessory muscle use. GASTROINTESTINAL: Abdomen soft, non-tender, nondistended. MUSCULOSKELETAL: No cyanosis, or edema. BACK: Nontender without obvious deformity. No CVA tenderness. A/P Assessment and Plan 82 year-old female with Acute mood disorder Management per psychiatry Urinary tract infection Continue Cipro 250 mg by mouth twice a day ( end date 08/13/17) Previous history of Right lower extremity DVT Right lower extremity Doppler on 08/08/17 was negative for DVT, therefore Xarelto has not been resumed. Hypertension Continue with enalapril 20 mg by mouth twice a day, Lopressor 25 mg twice a day Hyperlipidemia On Lipitor 40 mg at bedtime DVT prophylaxis: Encourage ambulation [facility] will sign off and reconsult when necessary Petr Sexton MD Aug 10, 2017 10:39
[2017-08-10 13:57] LABS: HEMOGLOBIN A1a 0.7 %; HEMOGLOBIN A1b 0.6 %; HEMOGLOBIN Ao 53.4 %; HEMOGLOBIN F 0.8 %; HEMOGLOBIN LA1C 1.5 %; HEMOGLOBIN P3 2.9 %
[2017-08-10 17:30] VITALS: BP 154/70; PULSE 72; RESP 16; TEMP 97.3
--- NOTE | 2017-08-10 20:20 | HHI.PYPN ---
Subjective Remarks Pt seen and discussed with staff. She has been calm and cooperative with care. No aggression or agitation today. She was transferred back to 2500 unit. She is compliant with medications and mood has been pleasant. No SI/HI Mental Status Examination Appearance: Appropriate Consciousness: Alert Orientation: Person, Place ([facility]), Date/Time (month but not year) Motor Activity: Other (ambulates with walker) Speech: Unremarkable Language: Adequate Fund of Knowledge: Poor (decreased) Attention and Concentration: Easily Distracted Memory: Impaired Mood: Other (depressed) Affect: Other (tearful and dysphoric) Thought Process & Associations: Other (perseverative) Hallucination Type: None Delusion Type: None Suicidal Ideation: No Suicidal Plan: No Suicidal Intention: No Homicidal Ideation: No Homicidal Plan: No Homicidal Intention: No Insight: Poor Judgment: Poor Results Vitals/IOs Vital Signs Date Time Temp Pulse Resp B/P (MAP) Pulse Ox O2 Delivery O2 Flow Rate FiO2 08/10/17 17:30 97.3 72 16 154/70 (98) 08/10/17 05:11 95 Intake and Output 08/10/17 08/10/17 08/11/17 08:00 16:00 00:00 Intake Total 120 ml Balance 120 ml Assessment & Plan Problem List: (1) Dementia ICD Codes: F03.90 - Unspecified dementia without behavioral disturbance Assessment & Plan Continue current tx plan. Estimated LOS: days Justification for Cont. Inpt. monitoring for safety Request HC Surrog/Guard Advoc?: Yes Problem Qualifiers (1) Dementia: Qualified Codes: G30.8 - Other Alzheimer's disease; F02.81 - Dementia in other diseases classified elsewhere with behavioral disturbance Neelam Prabhakar MD Aug 10, 2017 20:20
[2017-08-11 06:03] VITALS: BP 128/59; PULSE 83; RESP 16; TEMP 97.4; O2SAT 96
[2017-08-11] MEDS: busPIRone HCL 5 MG TAB PO SCH ×3 (08:27→17:10)
[2017-08-11] MEDS: ENALAPRIL MALEATE 10 MG TAB PO SCH ×2 (08:27→20:38)
[2017-08-11] MEDS: METOPROLOL TARTRATE 50 MG TAB PO SCH ×2 (08:28→20:38)
[2017-08-11] MEDS: REMOVE OLD PATCH T-DERMAL SCH (09:00)
[2017-08-11] MEDS: NICOTINE 21 MG/24 HR PATCH T-DERMAL SCH (09:00)
--- NOTE | 2017-08-11 10:47 | HHI.PYPN ---
Subjective Remarks Patient seen and examined. Chart reviewed. Patient significantly agitated over the weekend, required Haldol and Zyprexa ETO's and had to be transferred to the high acuity unit. Patient has now been returned to the geropsychiatric unit. Case discussed with nursing staff. On my examination today, patient perseverates on returning home to care for her 96-year-old mother, who I am told is in fact . She is irritable. She is oriented to person only. Denies side effects from medications. No physical complaints. Review of Systems ROS Limitations: Poor Historian Except as stated in HPI: all other systems reviewed are Neg Mental Status Examination Appearance: Appropriate Consciousness: Alert Orientation: Person Motor Activity: Other (no motor abnormalities noted) Speech: Unremarkable Language: Adequate Fund of Knowledge: Poor Attention and Concentration: Easily Distracted Memory: Impaired (remains impaired on clinical exam) Mood: Other (dysphoric) Affect: Irritable Thought Process & Associations: Other (remains perseverative) Hallucination Type: None Delusion Type: Other (Believes 96 y/o mother is at home and she needs to care for her.) Suicidal Ideation: No Suicidal Plan: No Suicidal Intention: No Homicidal Ideation: No Homicidal Plan: No Homicidal Intention: No Insight: Poor Judgment: Poor Results Labs Labs reviewed. Renal function stable. Hemoglobin A1c mildly elevated. Vitals/IOs Vital Signs Date Time Temp Pulse Resp B/P (MAP) Pulse Ox O2 Delivery O2 Flow Rate FiO2 08/11/17 06:03 97.4 83 16 128/59 (82) 96 Intake and Output 08/11/17 08/11/17 08/12/17 08:00 16:00 00:00 Intake Total 480 ml Balance 480 ml Assessment & Plan Problem List: (1) Dementia ICD Codes: F03.90 - Unspecified dementia without behavioral disturbance Assessment & Plan Given issues with agitation over the weekend requiring transfer to high acuity unit and ETO's and ongoing irritability, titrate Zyprexa to 6.25 mg at bedtime. Hospitalist input noted and appreciated. Defer management of mildly elevated hemoglobin A1c to hospitalist. Awaiting OT evaluation. Continue to monitor on the geropsychiatric unit. Continue other medications and care as ordered. Justification for Cont. Inpt. Medication changes in process. Impairment in reality construction as a consequence of her dementia. High risk for decompensation in a less restrictive environment. Discharge Planning Counselor to obtain collateral from patient's daughter regarding her discharge goals for the patient. Awaiting OT evaluation of patient's functional status. Possible placement. Case discussed with counselor. Request HC Surrog/Guard Advoc?: Yes Problem Qualifiers (1) Dementia: Qualified Codes: G30.8 - Other Alzheimer's disease; F02.81 - Dementia in other diseases classified elsewhere with behavioral disturbance Amish Hou MD Aug 11, 2017 10:47
[2017-08-11] MEDS: CIPROFLOXACIN 250 MG TAB PO SCH ×2 (11:00→20:38)
--- NOTE | 2017-08-11 18:22 | MG ---
cc: BOZENA HOU M.D. Lab No: Date: 08/11/2017 Age: Sex: F Race: DATE OF 1935, 82 years old ELECTROENCEPHALOGRAM NUMBER [id number] Heredia ROOM 2504 B Awake, drowsy, asleep study. Photic stimulation. CT scan showed severe white matter changes. Old left parietal infarct. Ventriculomegaly. Possible normal pressure hydrocephalus. Admitted with bizarre behavior under [place]. Irritable, confused. Depressed since mother's passing with some visual hallucinations. History of dementia. On currently described in the medicine section. DESCRIPTION OF RECORD There is significant slowing predominately of appears to be more of a delta frequency. A lot of artifact, patient having some visual hallucinations, constantly moving. It seems like she woke up, seems to have some theta slowing as well. Then falls back asleep and goes back into a delta frequency. Photic stimulation with a mild driving response. IMPRESSION Abnormal EEG due to moderate slowing likely secondary to an encephalopathic process. No gross epileptiform features were seen. Clinical correlation. MD NANDA Del Cid/DICKSON /4:13 PM /6:11 PM
[2017-08-11 18:32] VITALS: BP 117/57; PULSE 91; RESP 17; TEMP 98.1
[2017-08-11] MEDS: OLANZapine 5 MG TAB PO SCH ×2 (20:38→22:37)
[2017-08-11] MEDS: OLANZapine 2.5 MG TAB PO SCH (20:38)
[2017-08-11] MEDS: ATORVASTATIN 40 MG TAB PO SCH ×2 (20:38→22:37)
[2017-08-11 20:45] VITALS: PULSE 97; O2SAT 100
[2017-08-12 06:38] VITALS: BP 128/58; PULSE 74; RESP 15; TEMP 97.2; O2SAT 97
[2017-08-12] MEDS: busPIRone HCL 5 MG TAB PO SCH ×3 (08:44→17:02)
[2017-08-12] MEDS: ENALAPRIL MALEATE 10 MG TAB PO SCH ×2 (08:44→20:46)
[2017-08-12] MEDS: CIPROFLOXACIN 250 MG TAB PO SCH ×2 (08:44→20:46)
[2017-08-12] MEDS: METOPROLOL TARTRATE 50 MG TAB PO SCH ×2 (08:45→20:46)
--- NOTE | 2017-08-12 09:07 | HHI.PYPN ---
Subjective Remarks Patient seen and examined. Chart reviewed. Case discussed in treatment team. Per nurse, no significant behavioral issues overnight. Counselor reports that the patient's family is not interested and fpc placement and would like the patient returned home. Counselor to reach out to family to determine when exactly they can accept the patient home. On my examination today, the patient is calm. She is at her confused baseline. No mood or psychotic symptoms. No side effects from medications. No physical complaints. Review of Systems ROS Limitations: Poor Historian Except as stated in HPI: all other systems reviewed are Neg Mental Status Examination Appearance: Appropriate Consciousness: Alert Orientation: Person Motor Activity: Other (no abnormal motor movements noted) Speech: Unremarkable Language: Adequate Fund of Knowledge: Poor Attention and Concentration: Easily Distracted Memory: Impaired Mood: Appropriate Affect: Blunt Thought Process & Associations: Other (paucity of thought) Thought Content: Appropriate Hallucination Type: None Delusion Type: None Suicidal Ideation: No Suicidal Plan: No Suicidal Intention: No Homicidal Ideation: No Homicidal Plan: No Homicidal Intention: No Insight: Poor Judgment: Poor Results Labs labs reviewed Vitals/IOs Vital Signs Date Time Temp Pulse Resp B/P (MAP) Pulse Ox O2 Delivery O2 Flow Rate FiO2 08/12/17 06:38 97.2 74 15 128/58 (81) 97 Intake and Output 08/12/17 08/12/17 08/13/17 08:00 16:00 00:00 Intake Total 240 ml Balance 240 ml Assessment & Plan Problem List: (1) Dementia ICD Codes: F03.90 - Unspecified dementia without behavioral disturbance Assessment & Plan Continue current psychotropics as ordered. Continue to monitor on the inpatient unit. Continue other medications and care as ordered. Justification for Cont. Inpt. Risk for decompensation Discharge Planning Home with family, possibly with home health care within the next few days. Case discussed with counselor. Request HC Surrog/Guard Advoc?: Yes Problem Qualifiers (1) Dementia: Qualified Codes: G30.8 - Other Alzheimer's disease; F02.81 - Dementia in other diseases classified elsewhere with behavioral disturbance Amish Huo MD Aug 12, 2017 09:07
--- NOTE | 2017-08-12 13:12 | PD.TTN ---
Patient Problems 1. Discharge planning 2. Medication compliance 3. Knowledge deficit 4. Lack of coping skills Progress Toward Goals Provider Present: Dr. Sherif Hou Provider Input: Dementia and has been treated for UTI or is on antibiotic She is more stable Nurse(s) Input: still somewhat labile Psychiatric Counselors Present: Genan Qureshi LCSW Psych Therapist Input: patient is improving and out on the unit, per daughter she can return home and they will be providing 24/7 care for her by family will call daughter today to discuss if she is open to have her home after seeing her in visit yesterday and will arrange home health care as well Genna Qureshi LCSW Aug 12, 2017 13:12
[2017-08-12 18:00] VITALS: BP 146/66; PULSE 81; RESP 18; TEMP 97.7; O2SAT 98
[2017-08-12] MEDS: OLANZapine 2.5 MG TAB PO SCH (20:46)
[2017-08-12] MEDS: ATORVASTATIN 40 MG TAB PO SCH (20:46)
[2017-08-12] MEDS: OLANZapine 5 MG TAB PO SCH (20:46)
[2017-08-13] MEDS ORDERED: OLANZapine IM 10 MG VIAL IM ONE ×2 (02:15→04:02)
[2017-08-13 06:32] VITALS: BP 138/70; PULSE 82; RESP 16; TEMP 97.6; O2SAT 98
[2017-08-13] MEDS: CIPROFLOXACIN 250 MG TAB PO SCH ×2 (09:34→20:48)
[2017-08-13] MEDS: ENALAPRIL MALEATE 10 MG TAB PO SCH ×2 (09:35→21:00)
[2017-08-13] MEDS: busPIRone HCL 5 MG TAB PO SCH ×3 (09:35→18:00)
[2017-08-13] MEDS: METOPROLOL TARTRATE 50 MG TAB PO SCH ×2 (09:35→21:00)
--- NOTE | 2017-08-13 11:34 | HHI.PYPN ---
Subjective Chief Complaint: dementia with behavioral disturbance Remarks Patient seen and examined. Chart reviewed. Patient with significant agitation overnight, required Zyprexa ETO 2. Case discussed with nursing staff who reports patient subsequently calmed, although she has been a little bit irritable this morning. On my examination today, the patient is sitting in the day area. She is somewhat sleepy, likely from medications, but she is easily awakened. She remains confused as at baseline. Complains of some subjective tiredness but otherwise no reported side effects from medications or physical complaints. Review of Systems ROS Limitations: Poor Historian Except as stated in HPI: all other systems reviewed are Neg Mental Status Examination Appearance: Appropriate Consciousness: Alert Orientation: Person Motor Activity: Other (no motoric abnormalities noted) Speech: Unremarkable Language: Adequate Fund of Knowledge: Poor Attention and Concentration: Easily Distracted Memory: Impaired Mood: Other (calm) Affect: Flat Thought Process & Associations: Other (paucity of thought) Thought Content: Appropriate Hallucination Type: None Delusion Type: None Suicidal Ideation: No Suicidal Plan: No Suicidal Intention: No Homicidal Ideation: No Homicidal Plan: No Homicidal Intention: No Insight: Poor Judgment: Poor Results Labs Labs reviewed. Vitals/IOs Vital Signs Date Time Temp Pulse Resp B/P (MAP) Pulse Ox O2 Delivery O2 Flow Rate FiO2 08/13/17 06:32 97.6 82 16 138/70 (92) 98 Intake and Output 08/13/17 08/13/17 08/14/17 08:00 16:00 00:00 Intake Total 120 ml Balance 120 ml Assessment & Plan Problem List: (1) Dementia ICD Codes: F03.90 - Unspecified dementia without behavioral disturbance Assessment & Plan Titrate Zyprexa to 7.5 mg at bedtime to target behavioral disturbance in the setting of the patient's dementia. I will check and updated CBC and CMP as well as a urinalysis to investigate possible general medical causes for patient' s abrupt worsening of behavior overnight, although I do suspect this represents chronic behavioral disturbance in the setting of her mention. Counselor has reached out to family, and family is not interested in placement at this time. I will plan for discharge home with home health. Continue to monitor on the inpatient unit. Continue other medications and care as ordered. Justification for Cont. Inpt. Med changes. High risk for decompensation in less restrictive environment. Discharge Planning Anticipate discharge tomorrow home with home health. Case discussed with counselor. Request HC Surrog/Guard Advoc?: Yes Problem Qualifiers (1) Dementia: Qualified Codes: G30.8 - Other Alzheimer's disease; F02.81 - Dementia in other diseases classified elsewhere with behavioral disturbance Amish Hou MD Aug 13, 2017 11:34
--- NOTE | 2017-08-13 12:13 | HHI.FF ---
Face to Face Verification Diagnosis: (1) Dementia Physical Therapy Order: Evaluate and Treat, Improve ambulation, Strength and gait training Home Health Nursing Order: Signs/symptoms of disease process Medication education-adverse effect Nursing assessment with vital signs Zone Supervisor Firearms Order: To Evaluate: Living conditions/environment, Support services Order: To Provide: Long range planning, Community services I have seen patient Jillian Bueno on 08/13/17. My clinical findings support the need for the requested home health care services because: Impaired cognition/judgement I certify that my clinical findings support that this patient is homebound because: Impaired cognitive ability/safety Unsteady gait/balance Amish Hou MD Aug 13, 2017 12:13
[2017-08-13] MEDS ORDERED: PILL SPLITTER OTHER PRN (14:00)
[2017-08-13 15:43] LABS: ALT (GPT) 38 U/L (10-53)
[2017-08-13 15:46] LABS: ALKALINE PHOSPHATASE 58 U/L (45-117); TOTAL BILIRUBIN ADULT 0.8 MG/DL (0.2-1.0)
[2017-08-13 15:55] LABS: ANION GAP 10 MEQ/L (5-15); AST (GOT) 39 U/L (15-37); BICARBONATE 19.9 MEQ/L (21.0-32.0); BLOOD UREA NITROGEN 38 MG/DL (7-18); CHLORIDE 109 MEQ/L (98-107); GLOMERULAR FILTRATION RATE 35 ML/MIN (>89); POTASSIUM 4.7 MEQ/L (3.5-5.1); SODIUM (NA) 139 MEQ/L (136-145)
[2017-08-13 17:49] VITALS: BP 91/61; PULSE 82; RESP 16; TEMP 97.7; O2SAT 93
[2017-08-13] MEDS: ATORVASTATIN 40 MG TAB PO SCH (20:48)
[2017-08-13] MEDS ORDERED: OLANZapine 5 MG TAB PO SCH (21:00)
[2017-08-14] MEDS: busPIRone HCL 5 MG TAB PO SCH ×2 (08:56→12:26)
[2017-08-14] MEDS: ENALAPRIL MALEATE 10 MG TAB PO SCH (08:56)
[2017-08-14] MEDS: METOPROLOL TARTRATE 50 MG TAB PO SCH (08:56)
[2017-08-14 09:37] VITALS: BP 136/60
[2017-08-14 10:36] LABS: AUTOMATED NEUTROPHIL # 7.2 TH/MM3 (1.8-7.7); BASOPHIL % 0.5 % (0.0-2.0); EOSINOPHIL # 0.1 TH/MM3 (0-0.4); HEMATOCRIT 39.4 % (35.0-46.0); HEMO FLAGS DIFF FINAL; LYMPH % 12.8 % (9.0-44.0); LYMPHOCYTE # 1.2 TH/MM3 (1.0-4.8); MEAN CELL VOLUME 90.4 FL (80.0-100.0); MEAN CORPUSCULAR HGB CONC 33.2 % (32.0-36.0); MONO % 8.8 % (0.0-8.0); NEUT % 76.9 % (16.0-70.0); PLATELET COUNT 220 TH/MM3 (150-450); RED BLOOD COUNT 4.36 MIL/MM3 (4.00-5.30); RED CELL DISTRIBUTION WIDTH 16.3 % (11.6-17.2); WHITE BLOOD COUNT 9.4 TH/MM3 (4.0-11.0)
[2017-08-14] MEDS ORDERED: OLAN5TAB PO (11:21)
--- NOTE | 2017-08-14 11:21 | HHI.DS ---
Psychiatry Discharge Summary Inpatient Psychiatric care?: Yes Advance Directive: No Reason Not Provided: refused Mental Health AdvanceDirective: No Health Care Proxy: No Admission Admission Date Aug 08, 2017 at 15:35 Admission Diagnosis: (1) Dementia ICD Code: F03.90 - Unspecified dementia without behavioral disturbance Brief History Ms. Bueno is an 82-year-old female with a chart history of dementia who presented initially to the emergency department for bizarre behavior. She was admitted to the clinical decision unit for possible UTI. She was seen in consultation by Dr. Sanchez who place the patient under a [place] act and recommended admission to the inpatient psychiatric unit. Reviewing the electronic medical record, I see no prior psychiatric contact within our system. Patient seen and examined. Chart reviewed. Case discussed with nursing staff. On my examination today, the patient presents as tearful and somewhat irritable. She perseverates on her mother, who reportedly when she was 89 years old. She appears quite confused, see full mental status testing below. She denies any audiovisual hallucinations. Denies any suicidal or homicidal ideation but admitted she's been feeling fairly depressed, reportedly since her mother's passing. No hypomanic or manic symptoms. Psychiatric interview is somewhat limited because of the patient's current psychological distress and also because of her cognitive impairment. Past psychiatric history: The patient is likely an unreliable historian but denies a history of psychiatric diagnosis. She denies a history of inpatient or outpatient psychiatric treatment. She denies a history of suicide attempts. Tobacco Use In Past 30 Days: No Tobacco Past 30 Days Alcohol Use: Never Hospital Course Patient was admitted to a locked, inpatient psychiatric unit. A general medical consultation was obtained. Appropriate precautions were in place throughout patient's hospital stay. Patient was seen and examined on the unit by psychiatry and also visited by counselor. Psychotropic medications were adjusted. Patient tolerated medications well without side effects. Patient had improvement in presenting behavioral disturbance with the benefit of pharmacologic treatment. There was no evidence of any suicidality or homicidality on the inpatient unit. The counselor has reached out to the patient's daughter, who is reportedly declining placement and wishes to have the patient discharged home. She is agreeable to accepting a discharge home with home health, which I have ordered. The patient's case was discussed in the Part[place] act court and placed in 1 week continuance. On the day of discharge: Patient seen and examined. Chart reviewed. Case discussed with nurse. No behavioral issues overnight. The patient required no ETOs overnight. On my examination this morning, the patient is calm. She is eager for discharge home. She remains at her confused baseline. No affective or psychotic symptoms verbalized. No SI or HI. Laboratories obtained yesterday reviewed. Nursing staff report they were unable to obtain urine sample as the patient is incontinent and could not tolerate catheterization. However, the patient's behavior has improved as I said. Weighing the acute, chronic, and protective factors and based on the available evidence, I song and dance performer to a reasonable degree of medical certainty that the patient is at low imminent risk of harm to self or others from a mental illness as defined under the [place] act. Patient has maximized benefit from this inpatient psychiatric hospital stay will be discharged home with home health into daughter's care with follow-up as arranged by counselor. Patient should additionally follow-up with primary care. Patient to return to psychiatric emergency room for any concerning psychiatric symptoms. Results Blood Pressure 136 / 60 Vital Signs Date Time Temp Pulse Resp B/P (MAP) Pulse Ox O2 Delivery O2 Flow Rate FiO2 08/14/17 09:37 136/60 (85) Automatic Cuff 08/13/17 17:49 97.7 82 16 93 Laboratory Tests Test 08/13/17 13:58 08/14/17 09:39 Blood Urea Nitrogen 38 MG/DL (7-18) Creatinine 1.68 MG/DL (0.50-1.00) Calcium Level 10.4 MG/DL (8.5-10.1) Aspartate Amino Transf (AST/SGOT) 39 U/L (15-37) Chloride Level 109 MEQ/L (98-107) Carbon Dioxide Level 19.9 MEQ/L (21.0-32.0) Estimat Glomerular Filtration Rate 35 ML/MIN (>89) Neutrophils (%) (Auto) 76.9 % (16.0-70.0) Monocytes (%) (Auto) 8.8 % (0.0-8.0) Laboratory Results Test 08/09/17 10:58 Cholesterol Level 181 MG/DL (120-200) HDL Cholesterol 99.4 MG/DL (40.0-60.0) Hemoglobin A1c 6.5 % (4.3-6.0) LDL Cholesterol 66 MG/DL (0-99) Triglycerides Level 80 MG/DL (42-150) Summary of Procedures None done Imaging None done Pending results at discharge: No Medications # of Antipsychotic meds at D/C: 1 Approp Antipsych med options 1 - Minimum of three failed multiple trials of monotherapy. 2 - Documented plan to taper to monotherapy due to previous use of multiple meds OR cross-taper in progress at D/C. 3 - Documentation of augmentation of Clozapine. 4 - Justification other than those listed in allowable values 1-3, document here : Discharge Discharge Date: Aug 14, 2017 Discharge Diagnosis: (1) Dementia Diagnosis: Principal ICD Code: F03.90 - Unspecified dementia without behavioral disturbance Pt Condition on Discharge: Stable Discharge Disposition: Disch w/ Home Health Serv Discharge Instructions Diet Instructions: Heart Healthy Diet Activities you can perform: Weight Bearing as Abdirashid Scheduled Appointment: Dr Thibodeaux Appointment Date: Aug 15, 2017 Appointment Time: 2:30pm New Orders: BASIC METABOLIC PROF - 1 Week UA C+S IF INDICATED - 2-3 Days New Medications: Olanzapine (Olanzapine) 5 Mg Tab 7.5 MG PO HS for Mental Health for 15 Days, TAB 1 Refill Continued Medications: Atorvastatin (Atorvastatin) 40 Mg Tab 40 MG PO HS for Cholesterol Management, #30 TAB 0 Refills Buspirone (Buspirone) 5 Mg Tab 5 MG PO TID for Anxiety, TAB 0 Refills Enalapril (Enalapril) 20 Mg Tab 20 MG PO BID, #30 TAB 0 Refills Metoprolol Tartrate (Metoprolol Tartrate) 50 Mg Tab 50 MG PO BID, #60 TAB 0 Refills Discontinued Medications: Ciprofloxacin (Cipro) 250 Mg Tab 250 MG PO BID for Infection, #2 TAB 0 Refills Olanzapine (Olanzapine) 5 Mg Tab 5 MG PO DAILY, #30 TAB 0 Refills Discharge Time <= 30 minutes Mental Status Examination Appearance: Appropriate Consciousness: Alert Orientation: Person (person only) Motor Activity: Other (No abnormal motor movements noted) Speech: Unremarkable Language: Adequate Fund of Knowledge: Poor Attention and Concentration: Easily Distracted Memory: Impaired (impaired on clinical exam) Mood: Other (calm) Affect: Flat Thought Process & Associations: Other (ongoing paucity of thought) Thought Content: Appropriate Hallucination Type: None Delusion Type: None Suicidal Ideation: No Homicidal Ideation: No Insight: Poor Judgment: Poor Discharge/Advance Care Plan Health Problems: (1) Dementia Goals to promote your health * To prevent worsening of your condition and complications * To maintain your health at the optimal level Directions to meet your goals Take your medications as prescribed Follow your dietary instruction Follow activity as directed Keep your appointments as scheduled Take your immunizations and boosters as scheduled If your symptoms worsen call your PCP, if no PCP go to Urgent Care Center or Emergency Room For 12/05 questions related to your inpatient stay or results of tests pending at discharge, please contact Dr. Amish Hou at Smoking is Dangerous to Your Health. Avoid second hand smoking Problem Qualifiers (1) Dementia: Qualified Codes: G30.8 - Other Alzheimer's disease; F02.81 - Dementia in other diseases classified elsewhere with behavioral disturbance Amish Hou MD Aug 14, 2017 11:21
== END 2017-08-14 17:30 | disposition home or self-care (01) | DRG 884 ==
LOC: H250 15:35 → H270 08-09 07:30 → H250 08-10 13:25
PROVIDERS: ADMIT Psychiatry & Neurology Psychiatry; ATTEND Psychiatry & Neurology Psychiatry
DX: F03.91 Unspecified dementia, unspecified severity, with behavioral disturbance (principal); N39.0 Urinary tract infection, site not specified; F41.9 Anxiety disorder, unspecified; I10 Essential (primary) hypertension; E78.5 Hyperlipidemia, unspecified; I25.10 Atherosclerotic heart disease of native coronary artery without angina pectoris; K21.9 Gastro-esophageal reflux disease without esophagitis; M19.90 Unspecified osteoarthritis, unspecified site; Z86.718 Personal history of other venous thrombosis and embolism; Z91.19 Patient's noncompliance with other medical treatment and regimen
CPT/HCPCS: 80048; 80053; 80061; 82140; 82607; 83036; 84443; 86592; 93005; 95819; J1630

== ENCOUNTER 2017-10-02 20:51 | Inpatient (IN) | payer OTHER, MEDICARE ==
[~2017-10-02] VITALS: Ht 160 cm; Wt 59.7 kg
[~2017-10-02 20:51] MED LIST changes: -CIPR250T52 PO; -XARE20TA PO
[2017-10-02 20:58] VITALS: BP 167/106; PULSE 58; RESP 16; TEMP 97.8
[2017-10-02 21:32] LABS: BASOPHIL # 0.1 TH/MM3 (0-0.2); BASOPHIL % 0.8 % (0.0-2.0); EOSINOPHIL # 0.1 TH/MM3 (0-0.4); EOSINOPHIL % 2.2 % (0.0-4.0); HEMATOCRIT 36.5 % (35.0-46.0); HEMOGLOBIN 11.9 GM/DL (11.6-15.3); LYMPH % 23.3 % (9.0-44.0); LYMPHOCYTE # 1.4 TH/MM3 (1.0-4.8); MEAN CELL VOLUME 89.6 FL (80.0-100.0); MEAN CORPUSCULAR HEMOGLOBIN 29.2 PG (27.0-34.0); MEAN CORPUSCULAR HGB CONC 32.5 % (32.0-36.0); MEAN PLATELET VOLUME 9.6 FL (7.0-11.0); MONO % 7.7 % (0.0-8.0); MONOCYTE # 0.5 TH/MM3 (0-0.9); PLATELET COUNT 189 TH/MM3 (150-450); RED BLOOD COUNT 4.07 MIL/MM3 (4.00-5.30); RED CELL DISTRIBUTION WIDTH 16.8 % (11.6-17.2); WHITE BLOOD COUNT 6.1 TH/MM3 (4.0-11.0)
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
[2017-10-02 22:06] LABS: ALT (GPT) 14 U/L (10-53)
[2017-10-02 22:08] LABS: AST (GOT) 22 U/L (15-37); BICARBONATE 24.5 MEQ/L (21.0-32.0); BLOOD UREA NITROGEN 19 MG/DL (7-18); CALCIUM 9.4 MG/DL (8.5-10.1); CHLORIDE 111 MEQ/L (98-107); CREATININE 1.73 MG/DL (0.50-1.00); GLOMERULAR FILTRATION RATE 34 ML/MIN (>89); GLUCOSE,RANDOM 100 MG/DL (74-106); SODIUM (NA) 144 MEQ/L (136-145)
[2017-10-02 22:09] LABS: ALKALINE PHOSPHATASE 61 U/L (45-117); TOTAL BILIRUBIN ADULT 0.8 MG/DL (0.2-1.0); TOTAL PROTEIN 7.4 GM/DL (6.4-8.2)
[2017-10-02 22:14] VITALS: BP 178/78; PULSE 51; RESP 16; O2SAT 96
[2017-10-02] MEDS ORDERED: ASPI-516 CHEW (22:14)
[2017-10-02] MEDS ORDERED: ISOS60TA PO (22:14)
[2017-10-02] MEDS ORDERED: FAMO20TA2 PO (22:14)
[2017-10-02] MEDS ORDERED: FERR325T18 PO (22:14)
[2017-10-02] MEDS ORDERED: DOCU1CAP66 (22:14)
[2017-10-02 22:16] LABS: BACTERIA, URINE RARE /hpf; BILIRUBIN, URINE NEG (NEG); BLOOD, URINE NEG (NEG); GLUCOSE,URINE NEG (NEG); HYALINE CAST, URINE 12 /lpf (RARE); KETONE, URINE NEG (NEG); MUCUS URINE FEW /lpf (OCC); NITRITE,URINE NEG (NEG); PH, URINE 5.5 (5.0-8.5); SQUAMOUS EPITHELIAL CELL URINE 5 /hpf (0-5); URINE COLOR YELLOW (YELLW/STRAW); URINE LEUKOCYTE ESTERASE LARGE (NEG)
[2017-10-02] MEDS ORDERED: ISOSORBIDE MONONITRATE 60 MG TAB PO ONE (22:30)
[2017-10-03] MEDS ORDERED: cefTRIAXone INJ 1,000 MG in SODIUM CHLORIDE 0.9% INJ 100 ML IV ONE (00:30)
[2017-10-03 05:31] VITALS: BP 156/66; PULSE 66; RESP 18; TEMP 98.2; O2SAT 96
[2017-10-03] MEDS ORDERED: ALUMINUM/MAGNESIUM/SIMETH 30 ML CUP PO PRN (06:15)
[2017-10-03] MEDS ORDERED: LORazepam 1 MG TAB PO PRN (06:15)
[2017-10-03] MEDS ORDERED: traZODone HCL 50 MG TAB PO PRN (06:15)
[2017-10-03] MEDS ORDERED: BENZTROPINE MESYLATE 1 MG TAB PO PRN (06:15)
[2017-10-03] MEDS ORDERED: diphenhydrAMINE HCL 50 MG/ML VIAL IM PRN (06:15)
[2017-10-03] MEDS ORDERED: BENZTROPINE MESYLATE 2 MG/2 ML VIAL IM PRN (06:15)
[2017-10-03] MEDS ORDERED: diphenhydrAMINE HCL 50 MG/ML VIAL - HS PRN IM (06:15)
[2017-10-03] MEDS ORDERED: LORazepam 0.5 MG TAB age > 65 yrs PO PRN (06:15)
[2017-10-03] MEDS ORDERED: MAGNESIUM HYDROXIDE SUSP 30 ML CUP PO PRN (06:15)
[2017-10-03] MEDS ORDERED: diphenhydrAMINE HCL 50 MG CAP PO PRN (06:15)
[2017-10-03 06:28] VITALS: BP 169/75; PULSE 71; RESP 16; TEMP 97.1; O2SAT 98
[2017-10-03] MEDS ORDERED: ASPIRIN 81 MG CHEW TAB CHEW SCH (07:45)
[2017-10-03] MEDS: ISOSORBIDE MONONITRATE 60 MG TAB PO SCH (08:06)
[2017-10-03] MEDS ORDERED: NICOTINE 21 MG/24 HR PATCH T-DERMAL SCH (09:00)
[2017-10-03] MEDS ORDERED: ENALAPRIL MALEATE 10 MG TAB PO SCH (09:00)
[2017-10-03] MEDS: CEFUROXIME AXETIL 250 MG TAB PO SCH ×2 (09:00→21:47)
[2017-10-03] MEDS ORDERED: FAMOTIDINE 20 MG TAB PO SCH (09:00)
[2017-10-03] MEDS: DOCUSATE SODIUM 100 MG CAP PO SCH ×2 (09:39→21:47)
[2017-10-03] MEDS: FAMOTIDINE 20 MG TAB PO SCH ×2 (09:41→21:47)
[2017-10-03] MEDS: FERROUS SULFATE 325 MG (65 MG ELEMENTAL IRON) TAB PO SCH (09:42)
[2017-10-03] MEDS: METOPROLOL TARTRATE 50 MG TAB PO SCH ×2 (09:42→21:46)
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
--- NOTE | 2017-10-03 12:29 | PD.CONS ---
HPI Service [facility] Hospitalists Consult Requested By Psychiatric services Reason for Consult Medical management Primary Care Physician Unknown Diagnoses: History of Present Illness Written by Lisa Sr, acting as scribe for Dr. Bolton on 10/03/17 at 12: 09. This is a 82yo female with a PMHX of hypertension, coronary artery disease, dyslipidemia, dementia, osteoarthritis and GERD who was admitted to the inpatient psychiatry unit under [place] act for dementia with behavioral disturbance after patient became paranoid believing that someone was trying to attack her. Hospitalist services have been requested to see the patient in consultation for medical management. Patient seen and examined today. Patient denies any complaints. She denies any fever or chills. Denies any palpitations , chest pain, dizziness, lightheadedness or shortness of breath. She denies any nausea vomiting or abdominal pain. She denies any dysuria, frequency, constipation or diarrhea. 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 Reported Medications Olanzapine 5 Mg Tab 7.5 Mg PO HS 15 Days Enalapril (Enalapril Maleate) 20 Mg Tab 20 Mg PO BID Atorvastatin (Atorvastatin Calcium) 40 Mg Tab 40 Mg PO HS Buspirone (Buspirone HCl) 5 Mg Tab 5 Mg PO TID Metoprolol Tartrate 50 Mg Tab 50 Mg PO BID Active Ordered Medications Current Medications Medications (Trade) Dose Ordered Sig/Rose Route Start Time Stop Time Status Last Admin (Atarax) 50 mg Q6H PRN PO 10/03/17 06:15 (Benadryl) 50 mg HS PRN PO 10/03/17 06:15 (Tylenol) 650 mg Q4H PRN PO 10/03/17 06:15 (Milk Of Magnesia Liq) 30 ml DAILY PRN PO 10/03/17 06:15 (Mag-Al Plus Susp Liq) 30 ml Q6H PRN PO 10/03/17 06:15 (Aspirin Chew) 81 mg ONCE CHEW 10/03/17 07:45 10/03/17 21:00 10/03/17 09:42 (Lipitor) 40 mg HS PO 10/03/17 21:00 (Vasotec) 20 mg BID PO 10/03/17 09:00 Future Hold (Ferrous Sulfate) 325 mg DAILY PO 10/03/17 09:00 10/03/17 09:42 (Imdur) 60 mg DAILY@0700 PO 10/03/17 08:06 10/03/17 08:06 (Lopressor) 50 mg BID PO 10/03/17 09:00 10/03/17 09:42 (Colace) 100 mg BID PO 10/03/17 09:00 10/03/17 09:39 (Ceftin) 250 mg Q12HR PO 10/03/17 09:00 10/13/17 08:59 10/03/17 09:00 (Catapres) 0.1 mg Q6H PRN PO 10/03/17 07:45 (Pepcid) 10 mg BID PO 10/03/17 09:00 10/03/17 09:41 (ZyPREXA) 7.5 mg HS PO 10/03/17 21:00 UNV Family History Reviewed with patient, no significant FMHX Social History Patient denies any current tobacco use. Patient quit smoking 25 years ago. She denies any alcohol consumption or illicit drug use. Physical Exam Vital Signs Vital Signs Date Time Temp Pulse Resp B/P (MAP) Pulse Ox O2 Delivery O2 Flow Rate FiO2 10/03/17 06:28 97.1 71 16 169/75 (106) 98 10/03/17 05:31 98.2 66 18 156/66 (96) 96 Room Air 10/02/17 22:14 51 16 178/78 (111) 96 Room Air 10/02/17 21:11 98 Room Air 10/02/17 20:58 97.8 58 16 167/106 (126) Physical Exam GENERAL: This is a well-nourished, well-developed elderly female patient, in no apparent distress. Awake and alert. SKIN: No rashes, ecchymoses or lesions. Cool and dry. HEAD: Atraumatic. Normocephalic. No temporal or scalp tenderness. EYES: Pupils equal round and reactive. Extraocular motions intact. No scleral icterus. No injection or drainage. ENT: Nose without bleeding or purulent drainage. Throat without erythema, tonsillar hypertrophy or exudate. Uvula midline. Airway patent. NECK: Trachea midline. No lymphadenopathy. Supple, nontender, no meningeal signs. CARDIOVASCULAR: Regular rate and rhythm without murmurs, gallops, or rubs. RESPIRATORY: Clear to auscultation. Breath sounds equal bilaterally. No wheezes , rales, or rhonchi. GASTROINTESTINAL: Abdomen soft, non-tender, nondistended. No hepato-splenomegaly , or palpable masses. No guarding. MUSCULOSKELETAL: Extremities without clubbing, cyanosis, or edema. No joint tenderness, effusion, or edema noted. No calf tenderness. NEUROLOGICAL: Awake and alert. Able to move all extremities spontaneously. No focal neurologic finding appreciated. Normal speech. Laboratory Laboratory Tests Test 10/02/17 21:20 10/02/17 22:05 White Blood Count 6.1 Red Blood Count 4.07 Hemoglobin 11.9 Hematocrit 36.5 Mean Corpuscular Volume 89.6 Mean Corpuscular Hemoglobin 29.2 Mean Corpuscular Hemoglobin Concent 32.5 Red Cell Distribution Width 16.8 Platelet Count 189 Mean Platelet Volume 9.6 Neutrophils (%) (Auto) 66.0 Lymphocytes (%) (Auto) 23.3 Monocytes (%) (Auto) 7.7 Eosinophils (%) (Auto) 2.2 Basophils (%) (Auto) 0.8 Neutrophils # (Auto) 4.0 Lymphocytes # (Auto) 1.4 Monocytes # (Auto) 0.5 Eosinophils # (Auto) 0.1 Basophils # (Auto) 0.1 CBC Comment DIFF FINAL Differential Comment Blood Urea Nitrogen 19 Creatinine 1.73 Random Glucose 100 Total Protein 7.4 Albumin 4.0 Calcium Level 9.4 Alkaline Phosphatase 61 Aspartate Amino Transf (AST/SGOT) 22 Alanine Aminotransferase (ALT/SGPT) 14 Total Bilirubin 0.8 Sodium Level 144 Potassium Level 3.8 Chloride Level 111 Carbon Dioxide Level 24.5 Anion Gap 9 Estimat Glomerular Filtration Rate 34 Ethyl Alcohol Level LESS THAN 3 Urine Color YELLOW Urine Turbidity CLEAR Urine pH 5.5 Urine Specific [place] 1.011 Urine Protein TRACE Urine Glucose (UA) NEG Urine Ketones NEG Urine Occult Blood NEG Urine Nitrite NEG Urine Bilirubin NEG Urine Urobilinogen 2.0 Urine Leukocyte Esterase LARGE Urine RBC 1 Urine WBC 12 Urine Squamous Epithelial Cells 5 Urine Bacteria RARE Urine Hyaline Casts 12 Urine Mucus FEW Microscopic Urinalysis Comment CULTURE INDICATED Urine Opiates Screen NEG Urine Barbiturates Screen NEG Urine Amphetamines Screen NEG Urine Benzodiazepines Screen NEG Urine Cocaine Screen NEG Urine Cannabinoids Screen NEG Date/Time Source Procedure Growth Status 10/02/17 22:05 Urine Random Urine Urine Culture Pending Worksheet Result Diagram: 10/02/17211910/02/172119 Assessment and Plan Assessment and Plan 82yo female with a PMHX of hypertension, coronary artery disease, mentioned, dyslipidemia, osteoarthritis and GERD who was admitted to the inpatient psychiatry unit under [place] act for dementia with behavioral disturbance after patient became paranoid believing that someone was trying to attack her. Dementia with behavioral disturbance - Management per psychiatric team UTI - UA suggestive of urinary tract infection - Given Rocephin in the ED. Continue on Ceftin 250 mg po BID - Follow up on final urine culture results NICOLE on CKD - creatinine 1.73/GFR 34 - Baseline creatinine appears to be a 1.4 - hold ACEI for now - encourage fluid intake - monitor kidney function CAD - Patient has no cardiac complaints at this time - Aspirin daily Hypertension - Hold ACEI for now - continue on Imdur and Lopressor - Clonidine prn with parameters - monitor BP and adjust tx accordingly Dyslipidemia - Continue patient on home dose of Lipitor 40 mg daily History of DVT previously on Xarelto - 08/05 repeat ultrasound right lower extremity no longer shows any DVT. Xarelto discontinued. DVT prophylaxis - Patient is ambulatory Discussed Condition With patient, nursing staff This note was transcribed by scribe [Lisa Sr, ]. I, Dr. Cameron Bolton personally performed the history, physical exam, and medical decision making; and confirmed the accuracy of the information in the transcribed note. Authenticated by Dr. Cameron Bolton on Dr. Bolton on 10/03/17 at 12:22. Lisa Sr Oct 03, 2017 12:29 Cameron Bolton MD Oct 03, 2017 22:07
[2017-10-03] MEDS ORDERED: PILL SPLITTER OTHER PRN (12:30)
[2017-10-03 17:38] VITALS: BP 161/77; PULSE 70; RESP 16; TEMP 98; O2SAT 98
[2017-10-03] MEDS ORDERED: REMOVE OLD NICOTINE PATCH T-DERMAL SCH (21:00)
[2017-10-03] MEDS: OLANZapine 5 MG TAB PO SCH (21:46)
[2017-10-03] MEDS: ATORVASTATIN 40 MG TAB PO SCH (21:46)
[2017-10-03] MEDS: diphenhydrAMINE HCL 50 MG CAP - HS PRN PO (21:47)
[2017-10-04 05:00] VITALS: BP 180/85
[2017-10-04] MEDS: cloNIDine HCL 0.1 MG TAB PO PRN (05:28)
[2017-10-04 06:01] VITALS: PULSE 61; RESP 16; TEMP 97.6; O2SAT 95
[2017-10-04 06:51] VITALS: BP 128/58
[2017-10-04] MEDS: ISOSORBIDE MONONITRATE 60 MG TAB PO SCH (07:00)
[2017-10-04] MEDS: METOPROLOL TARTRATE 50 MG TAB PO SCH ×2 (09:00→21:21)
[2017-10-04] MEDS: DOCUSATE SODIUM 100 MG CAP PO SCH ×2 (09:56→21:21)
[2017-10-04] MEDS: FAMOTIDINE 20 MG TAB PO SCH ×2 (09:57→21:24)
[2017-10-04] MEDS: CEFUROXIME AXETIL 250 MG TAB PO SCH ×2 (09:57→21:21)
[2017-10-04] MEDS: FERROUS SULFATE 325 MG (65 MG ELEMENTAL IRON) TAB PO SCH (09:57)
[2017-10-04 09:58] VITALS: BP 113/54; PULSE 71
--- NOTE | 2017-10-04 11:01 | HHI.PR ---
Subjective Remarks Follow up on patient with HTN, CAD. Patient seen and examined. Patient states she feels well. She denies any complaints. No fever or chills. No chest pain or dyspnea. No nausea, vomiting or abdominal pain. Denies any swelling in her legs and feet. Objective Vitals Vital Signs Date Time Temp Pulse Resp B/P (MAP) Pulse Ox O2 Delivery O2 Flow Rate FiO2 10/04/17 09:58 71 113/54 (73) 10/04/17 06:51 128/58 (81) 10/04/17 06:01 97.6 61 16 95 10/04/17 05:00 180/85 (116) 10/03/17 17:38 98.0 70 16 161/77 (105) 98 I/O 10/03/17 10/03/17 10/03/17 10/04/17 10/04/17 10/04/17 07:00 15:00 23:00 07:00 15:00 23:00 Intake Total 480 ml Balance 480 ml Intake Oral 480 ml Result Diagram: 10/02/17211910/02/172119 Objective Remarks GENERAL: This is a well-nourished, well-developed elderly female patient, in no apparent distress. Awake and alert. Sitting the day room eating breakfast. SKIN: Warm and dry. HEAD: Atraumatic. Normocephalic. EYES: Extraocular motions intact. No scleral icterus. No injection or drainage. ENT: Nose without bleeding or purulent drainage. Airway patent. MMM. NECK: Trachea midline. CARDIOVASCULAR: Regular rate and rhythm. (+)murmur present. RESPIRATORY: Clear to auscultation. Breath sounds equal bilaterally. No wheezes , rales, or rhonchi. GASTROINTESTINAL: Abdomen soft, non-tender, nondistended. (+)BS. MUSCULOSKELETAL: Extremities without clubbing, cyanosis, or edema. NEUROLOGICAL: Awake and alert. Able to move all extremities spontaneously. No focal neurologic finding appreciated. Normal speech. Medications and IVs Current Medications Medications (Trade) Dose Ordered Sig/Rose Route Start Time Stop Time Status Last Admin (Atarax) 50 mg Q6H PRN PO 10/03/17 06:15 (Benadryl) 50 mg HS PRN PO 10/03/17 06:15 10/03/17 21:47 (Tylenol) 650 mg Q4H PRN PO 10/03/17 06:15 (Milk Of Magnesia Liq) 30 ml DAILY PRN PO 10/03/17 06:15 (Mag-Al Plus Susp Liq) 30 ml Q6H PRN PO 10/03/17 06:15 (Lipitor) 40 mg HS PO 10/03/17 21:00 10/03/17 21:46 (Vasotec) 20 mg BID PO 10/03/17 09:00 Future Hold (Ferrous Sulfate) 325 mg DAILY PO 10/03/17 09:00 10/04/17 09:57 (Imdur) 60 mg DAILY@0700 PO 10/03/17 08:06 10/03/17 08:06 (Lopressor) 50 mg BID PO 10/03/17 09:00 10/03/17 21:46 (Colace) 100 mg BID PO 10/03/17 09:00 10/04/17 09:56 (Ceftin) 250 mg Q12HR PO 10/03/17 09:00 10/13/17 08:59 10/04/17 09:57 (Catapres) 0.1 mg Q6H PRN PO 10/03/17 07:45 10/04/17 05:28 (Pepcid) 10 mg BID PO 10/03/17 09:00 10/04/17 09:57 (ZyPREXA) 7.5 mg HS PO 10/03/17 21:00 10/03/17 21:46 (Pill Splitter) 1 ea UNSCH PRN OTHER 10/03/17 12:30 A/P Assessment and Plan 82yo female with a PMHX of hypertension, coronary artery disease, mentioned, dyslipidemia, osteoarthritis and GERD who was admitted to the inpatient psychiatry unit under [place] act for dementia with behavioral disturbance after patient became paranoid believing that someone was trying to attack her. Dementia with behavioral disturbance - Management per psychiatric team UTI - UA suggestive of urinary tract infection - Given Rocephin in the ED. Continue on Ceftin 250 mg po BID - Follow up on final urine culture results NICOLE on CKD - creatinine 1.73/GFR 34 - Baseline creatinine appears to be a 1.4 - hold ACEI for now - encourage fluid intake - monitor kidney function - todays labs pending CAD - Patient has no cardiac complaints at this time - Aspirin daily Hypertension - Continue to hold ACEI for now. BP controlled at present. - continue on Imdur and Lopressor - Clonidine prn with parameters - monitor BP and adjust tx accordingly Dyslipidemia - Continue patient on home dose of Lipitor 40 mg daily History of DVT previously on Xarelto - 08/05 repeat ultrasound right lower extremity no longer shows any DVT. Xarelto discontinued. DVT prophylaxis - Patient is ambulatory Discussed with patient, nursing staff and Lisa Johnson Oct 04, 2017 11:01
[2017-10-04 11:48] LABS: BLOOD UREA NITROGEN 15 MG/DL (7-18); CALCIUM 10.3 MG/DL (8.5-10.1); CHLORIDE 113 MEQ/L (98-107); CHOLESTEROL 160 MG/DL (120-200); GLOMERULAR FILTRATION RATE 52 ML/MIN (>89); GLUCOSE,RANDOM 87 MG/DL (74-106); SODIUM (NA) 147 MEQ/L (136-145); TRIGLYCERIDES 67 MG/DL (42-150)
[2017-10-04 11:50] LABS: CHOLESTEROL/ HDL RATIO 1.87 RATIO; HDL CHOLESTEROL 85.5 MG/DL (40.0-60.0); LDL CHOLESTEROL 61 MG/DL (0-99)
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
[2017-10-04 18:29] VITALS: BP 165/70; PULSE 75; RESP 18; TEMP 97.4; O2SAT 99
[2017-10-04] MEDS: ATORVASTATIN 40 MG TAB PO SCH (21:22)
[2017-10-04] MEDS: OLANZapine 5 MG TAB PO SCH (21:22)
[2017-10-05 06:00] VITALS: BP 172/75; PULSE 57; RESP 17; TEMP 97.5; O2SAT 98
[2017-10-05] MEDS: ISOSORBIDE MONONITRATE 60 MG TAB PO SCH (06:20)
[2017-10-05] MEDS ORDERED: POTASSIUM CHLORIDE 10 MEQ CONTROLLED RELEASE TAB PO ONE (07:30)
[2017-10-05] MEDS: FERROUS SULFATE 325 MG (65 MG ELEMENTAL IRON) TAB PO SCH (09:10)
[2017-10-05] MEDS: METOPROLOL TARTRATE 50 MG TAB PO SCH ×2 (09:11→21:36)
[2017-10-05] MEDS: DOCUSATE SODIUM 100 MG CAP PO SCH ×2 (09:11→21:36)
[2017-10-05] MEDS: FAMOTIDINE 20 MG TAB PO SCH ×2 (09:11→21:36)
--- NOTE | 2017-10-05 10:35 | HHI.PYPN ---
Subjective Chief Complaint: patient confused psychotic demented decrease aggressive behavior Remarks Patient was seen and case discussed with nursing. Today patient is alert and oriented 2. She is blunted and hypoverbal. Per nursing she was quite irritable last night. She remains total care per nursing. Mood today is "pretty good." She had a visit with her daughter. Denies any psychotic symptoms or suicidal ideation intent or plan Mental Status Examination Appearance: Disheveled, Malodorous Consciousness: Alert Orientation: Person, Place Motor Activity: Other (it appears patient is using a walker will have PT assess ) Speech: Rapid, Other (disorganized) Language: Other (disorganized) Fund of Knowledge: Poor Attention and Concentration: Other (poor) Memory: Impaired Mood: Angry, Sad, Irritable Affect: Other (slight increase range and intensity) Thought Process & Associations: Disorganized Thought Content: Delusional Hallucination Type: None Delusion Type: Paranoid Suicidal Ideation: No Suicidal Plan: No Suicidal Intention: No Homicidal Ideation: No Homicidal Plan: No Homicidal Intention: No Insight: Poor Judgment: Poor Results Labs Date/Time Source Procedure Growth Status 10/02/17 22:05 Urine Random Urine Urine Culture - Final 50-100,000 CFU/ML MIXED GRAM POSITIVE... Complete Vitals/IOs Vital Signs Date Time Temp Pulse Resp B/P (MAP) Pulse Ox O2 Delivery O2 Flow Rate FiO2 10/05/17 06:00 97.5 57 17 172/75 (107) 98 10/03/17 05:31 Room Air Assessment & Plan Problem List: (1) DEMENTIA IN OTH DISEASES CLASSD ELSWHR W BEHAVIORAL DISTURB ICD Codes: F02.81 - DEMENTIA IN OTH DISEASES CLASSD ELSWHR W BEHAVIORAL DISTURB (2) OTHER ALZHEIMER'S DISEASE ICD Codes: G30.8 - OTHER ALZHEIMER'S DISEASE Assessment & Plan Continue current treatment plan Justification for Cont. Inpt. Patient will decompensate in a less restrictive setting Request HC Surrog/Guard Advoc?: Yes Constantino Mera DO Oct 05, 2017 10:35
[2017-10-05 10:50] LABS: HEMOGLOBIN A1C 6.1 % (4.3-6.0)
[2017-10-05 18:36] VITALS: BP 158/72; PULSE 68; RESP 18; TEMP 98.6; O2SAT 99
[2017-10-05] MEDS: OLANZapine 5 MG TAB PO SCH (21:36)
[2017-10-05] MEDS: ATORVASTATIN 40 MG TAB PO SCH (21:37)
[2017-10-06 05:55] VITALS: BP 202/84; PULSE 56; RESP 16; TEMP 97.4; O2SAT 98
[2017-10-06] MEDS: ISOSORBIDE MONONITRATE 60 MG TAB PO SCH (06:03)
[2017-10-06] MEDS: cloNIDine HCL 0.1 MG TAB PO PRN (09:46)
[2017-10-06] MEDS: METOPROLOL TARTRATE 50 MG TAB PO SCH ×2 (09:46→22:17)
[2017-10-06] MEDS: FAMOTIDINE 20 MG TAB PO SCH ×2 (09:46→22:17)
[2017-10-06] MEDS: FERROUS SULFATE 325 MG (65 MG ELEMENTAL IRON) TAB PO SCH (09:46)
[2017-10-06] MEDS: DOCUSATE SODIUM 100 MG CAP PO SCH ×2 (09:51→22:20)
[2017-10-06] MEDS ORDERED: hydrALAZINE HCL 50 MG TAB PO PRN (12:45)
[2017-10-06 13:56] VITALS: BP 131/60; PULSE 63
--- NOTE | 2017-10-06 15:07 | PD.TTN ---
Patient Problems 1. Discharge planning 2. Medication compliance 3. Knowledge deficit 4. Lack of coping skills Progress Toward Goals Provider Present: Dr. Gal Helms Provider Input: Dr. Helms met to discuss patient's treatment plan, medication and discharge. Patient is alert and oriented to place and person. Patient's speech is minimal, and guarded. Per nursing reports last night patient was quite irritable last night. Patient remains total care per nursing Nurse(s) Input: Patient's nurse Abner reports patient is total care, guarded, passive and seclusive to herself. Psychiatric Counselors Present: [facility] Input: Patient is alert and oriented to place and person. Patient found sitting in the day room watching TV. Patient is alert to person and place. Patient has poor insight into her situation. Patient presents cooperative, pleasant, affect blunted. Patient's speech is clear, low, and pressureed. Group Spec/RT/OT/SAMANO Present: ROXANN Loza Group Spec/RT/OT/SAMANO Input: Patient isolates to her room, no attendence as yet. [facility] Jones [facility] Oct 06, 2017 15:07
--- NOTE | 2017-10-06 15:41 | HHI.PYPN ---
Subjective Chief Complaint: patient confused psychotic demented decrease aggressive behavior Remarks Patient seen in day room with nurse Consuelo, chart reviewed, patient compliant medication. Patient sitting quietly in Alka chair she is calm and pleasant with me. Continues diffusely confused oriented to self and basically to "hospital" she has been no significant behavioral problems. Review of Systems Except as stated in HPI: all other systems reviewed are Neg Mental Status Examination Appearance: Disheveled, Malodorous Consciousness: Alert Orientation: Person, Place Motor Activity: Other (it appears patient is using a walker will have PT assess ) Speech: Rapid, Other (disorganized) Language: Other (disorganized) Fund of Knowledge: Poor Attention and Concentration: Other (poor) Memory: Impaired Mood: Angry, Sad, Irritable Affect: Other (slight increase range and intensity) Thought Process & Associations: Disorganized Thought Content: Delusional Hallucination Type: None Delusion Type: Paranoid Suicidal Ideation: No Suicidal Plan: No Suicidal Intention: No Homicidal Ideation: No Homicidal Plan: No Homicidal Intention: No Insight: Poor Judgment: Poor Results Labs Date/Time Source Procedure Growth Status 10/02/17 22:05 Urine Random Urine Urine Culture - Final 50-100,000 CFU/ML MIXED GRAM POSITIVE... Complete Vitals/IOs Vital Signs Date Time Temp Pulse Resp B/P (MAP) Pulse Ox O2 Delivery O2 Flow Rate FiO2 10/06/17 13:56 63 131/60 (83) 10/06/17 05:55 97.4 16 98 10/03/17 05:31 Room Air Intake and Output 10/06/17 10/06/17 10/07/17 08:00 16:00 00:00 Intake Total 240 ml Balance 240 ml Assessment & Plan Problem List: (1) DEMENTIA IN OTH DISEASES CLASSD ELSWHR W BEHAVIORAL DISTURB ICD Codes: F02.81 - DEMENTIA IN OTH DISEASES CLASSD ELSWHR W BEHAVIORAL DISTURB (2) OTHER ALZHEIMER'S DISEASE ICD Codes: G30.8 - OTHER ALZHEIMER'S DISEASE Assessment & Plan Estimated LOS: days patient, the present time compliant medications. Continues diffusely confused but no behavior problems at this time Justification for Cont. Inpt. At this time patient decompensate if placed in a lower level of care Discharge Planning Placement may become somewhat problematic Request HC Surrog/Guard Advoc?: Yes Scooby Helms MD Oct 06, 2017 15:41
[2017-10-06 17:53] VITALS: BP 146/72; PULSE 66; RESP 16; TEMP 97.3; O2SAT 98
[2017-10-06 18:48] LABS: BICARBONATE 28.6 MEQ/L (21.0-32.0); CALCIUM 10.2 MG/DL (8.5-10.1); CREATININE 1.33 MG/DL (0.50-1.00)
[2017-10-06] MEDS: ATORVASTATIN 40 MG TAB PO SCH (22:17)
[2017-10-06] MEDS: OLANZapine 5 MG TAB PO SCH (22:18)
[2017-10-07 02:40] VITALS: BP 205/85; PULSE 58; RESP 20
[2017-10-07] MEDS: hydrOXYzine HCL 50 MG TAB PO PRN ×2 (02:40→10:00)
[2017-10-07] MEDS: diphenhydrAMINE HCL 50 MG CAP - HS PRN PO (03:37)
[2017-10-07] MEDS: ISOSORBIDE MONONITRATE 60 MG TAB PO SCH (06:08)
[2017-10-07 06:15] VITALS: BP 140/74; PULSE 72; RESP 20; TEMP 97.3; O2SAT 96
[2017-10-07] MEDS: DOCUSATE SODIUM 100 MG CAP PO SCH ×2 (09:00→21:00)
[2017-10-07] MEDS: FERROUS SULFATE 325 MG (65 MG ELEMENTAL IRON) TAB PO SCH (09:00)
[2017-10-07] MEDS: FAMOTIDINE 20 MG TAB PO SCH ×2 (09:00→21:00)
[2017-10-07] MEDS: METOPROLOL TARTRATE 50 MG TAB PO SCH ×2 (09:00→21:00)
[2017-10-07] MEDS ORDERED: OLANZapine 5 MG TAB PO STA (09:44)
--- NOTE | 2017-10-07 12:33 | HHI.PYPN ---
Subjective Chief Complaint: patient confused psychotic demented decrease aggressive behavior Remarks Patient seen in day room nurse Mabel chart review, patient compliant medication. Earlier today patient became markedly agitated unable to be controlled needing the when necessary of 5 mg Zyprexa orally. At the present time patient sitting quietly in her Alka chair in no acute distress, no behavior problems noted at this time she is pleasantly confused talking with me though she did recognize me as her doctor today we will change the Zyprexa from 7.5 mg at bedtime to 5 mg twice a day Review of Systems Except as stated in HPI: all other systems reviewed are Neg Mental Status Examination Appearance: Disheveled, Malodorous Consciousness: Alert Orientation: Person, Place Motor Activity: Other (it appears patient is using a walker will have PT assess ) Speech: Rapid, Other (disorganized) Language: Other (disorganized) Fund of Knowledge: Poor Attention and Concentration: Other (poor) Memory: Impaired Mood: Angry, Sad, Irritable Affect: Other (slight increase range and intensity) Thought Process & Associations: Disorganized Thought Content: Delusional Hallucination Type: None Delusion Type: Paranoid Suicidal Ideation: No Suicidal Plan: No Suicidal Intention: No Homicidal Ideation: No Homicidal Plan: No Homicidal Intention: No Insight: Poor Judgment: Poor Results Labs Test 10/06/17 17:00 Blood Urea Nitrogen 26 MG/DL Creatinine 1.33 MG/DL Random Glucose 117 MG/DL Calcium Level 10.2 MG/DL Sodium Level 142 MEQ/L Potassium Level 4.1 MEQ/L Chloride Level 108 MEQ/L Carbon Dioxide Level 28.6 MEQ/L Anion Gap 5 MEQ/L Estimat Glomerular Filtration Rate 46 ML/MIN Date/Time Source Procedure Growth Status 10/02/17 22:05 Urine Random Urine Urine Culture - Final 50-100,000 CFU/ML MIXED GRAM POSITIVE... Complete Vitals/IOs Vital Signs Date Time Temp Pulse Resp B/P (MAP) Pulse Ox O2 Delivery O2 Flow Rate FiO2 10/07/17 06:15 97.3 72 20 140/74 (96) 96 Assessment & Plan Problem List: (1) DEMENTIA IN OTH DISEASES CLASSD ELSWHR W BEHAVIORAL DISTURB ICD Codes: F02.81 - DEMENTIA IN OTH DISEASES CLASSD ELSWHR W BEHAVIORAL DISTURB (2) OTHER ALZHEIMER'S DISEASE ICD Codes: G30.8 - OTHER ALZHEIMER'S DISEASE Assessment & Plan Estimated LOS: days patient continues confused disorganized with some behavioral issues earlier today necessitating an ETO oral Zyprexa. See medication adjustment about Justification for Cont. Inpt. At this time patient will decompensate if placed in a lower level of care Discharge Planning Hopefully to return to prior living arrangement Request HC Surrog/Guard Advoc?: Yes Scooby Helms MD Oct 07, 2017 12:33
--- NOTE | 2017-10-07 13:13 | HHI.PR ---
Subjective Remarks Follow up on patient with HTN, CAD. Patient seen and examined. She denies any complaints. She denies any chest pain or shortness of breath. Denies any palpitations. She reports good appetite. Discussed with Dr. Helms, no acute issues noted. States patient gets agitated so he is adjusting her medications. Objective Vitals Vital Signs Date Time Temp Pulse Resp B/P (MAP) Pulse Ox O2 Delivery O2 Flow Rate FiO2 10/07/17 06:15 97.3 72 20 140/74 (96) 96 10/07/17 02:40 58 20 205/85 (125) 10/06/17 17:53 97.3 66 16 146/72 (96) 98 10/06/17 13:56 63 131/60 (83) I/O 10/06/17 10/06/17 10/06/17 10/07/17 10/07/17 10/07/17 07:00 15:00 23:00 07:00 15:00 23:00 Intake Total 240 ml Balance 240 ml Intake Oral 240 ml Result Diagram: 10/06/17 1700 Objective Remarks GENERAL: This is a well-nourished, well-developed elderly female patient, in no apparent distress. Awake and alert. Sitting the day room. SKIN: Warm and dry. HEAD: Atraumatic. Normocephalic. EYES: Extraocular motions intact. No scleral icterus. No injection or drainage. ENT: Nose without bleeding or purulent drainage. Airway patent. MMM. NECK: Trachea midline. CARDIOVASCULAR: Regular rate and rhythm. (+)murmur present. RESPIRATORY: Clear to auscultation. Breath sounds equal bilaterally. No wheezes , rales, or rhonchi. GASTROINTESTINAL: Abdomen soft, non-tender, nondistended. (+)BS. MUSCULOSKELETAL: Extremities without clubbing, cyanosis, or edema. NEUROLOGICAL: Awake and alert. Able to move all extremities spontaneously. No focal neurologic finding appreciated. Normal speech. Medications and IVs Current Medications Medications (Trade) Dose Ordered Sig/Rose Route Start Time Stop Time Status Last Admin (Atarax) 50 mg Q6H PRN PO 10/03/17 06:15 10/07/17 10:00 (Benadryl) 50 mg HS PRN PO 10/03/17 06:15 10/03/17 21:47 (Tylenol) 650 mg Q4H PRN PO 10/03/17 06:15 (Milk Of Magnesia Liq) 30 ml DAILY PRN PO 10/03/17 06:15 (Mag-Al Plus Susp Liq) 30 ml Q6H PRN PO 10/03/17 06:15 (Lipitor) 40 mg HS PO 10/03/17 21:00 10/06/17 22:17 (Vasotec) 20 mg BID PO 10/03/17 09:00 Future Hold (Ferrous Sulfate) 325 mg DAILY PO 10/03/17 09:00 10/07/17 09:00 (Imdur) 60 mg DAILY@0700 PO 10/03/17 08:06 10/07/17 06:08 (Lopressor) 50 mg BID PO 10/03/17 09:00 10/07/17 09:00 (Colace) 100 mg BID PO 10/03/17 09:00 10/06/17 22:20 (Catapres) 0.1 mg Q6H PRN PO 10/03/17 07:45 10/06/17 09:46 (Pepcid) 10 mg BID PO 10/03/17 09:00 10/07/17 09:00 (Pill Splitter) 1 ea UNSCH PRN OTHER 10/03/17 12:30 (Apresoline) 50 mg Q8HR PRN PO 10/06/17 12:45 (ZyPREXA) 5 mg BID PO 10/07/17 21:00 A/P Assessment and Plan 82yo female with a PMHX of hypertension, coronary artery disease, mentioned, dyslipidemia, osteoarthritis and GERD who was admitted to the inpatient psychiatry unit under [place] for dementia with behavioral disturbance after patient became paranoid believing that someone was trying to attack her. Dementia with behavioral disturbance - Management per psychiatric team UTI - Patient asymptomatic - Urine culture positive for gram positive janay, likely contaminants. D/C antibiotics. NICOLE on CKD - creatinine 1.73/GFR 34 - Baseline creatinine appears to be a 1.4. Kidney function stable. - continue to hold ACEI - encourage fluid intake - avoid nephrotoxic agents CAD - Patient has no cardiac complaints at this time - Aspirin daily Hypertension - Continue to hold ACEI. BP labile but suspect due to episodes of agitation. Overall adequately controlled. - continue on Imdur and Lopressor - Hydralazine prn with parameters - monitor BP and adjust tx accordingly Dyslipidemia - Continue patient on home dose of Lipitor 40 mg daily History of DVT previously on Xarelto - 08/05 repeat ultrasound right lower extremity no longer shows any DVT. Xarelto discontinued. DVT prophylaxis - Patient is ambulatory Discussed with patient, nursing staff and Lisa Cortez Oct 07, 2017 13:13
[2017-10-07] MEDS ORDERED: LORazepam 1 MG TAB PO ONE (14:00)
[2017-10-07] MEDS ORDERED: LORazepam 2 MG/ML VIAL ONE (15:01)
[2017-10-07] MEDS ORDERED: LORazepam 2 MG/ML VIAL IM STA (15:04)
[2017-10-07] MEDS: ATORVASTATIN 40 MG TAB PO SCH (21:00)
[2017-10-07] MEDS: OLANZapine 5 MG TAB PO SCH (21:00)
[2017-10-07 21:41] VITALS: BP 148/72
[2017-10-08 06:06] VITALS: BP 142/54; PULSE 97; RESP 16; TEMP 97.4; O2SAT 97
[2017-10-08] MEDS: ISOSORBIDE MONONITRATE 60 MG TAB PO SCH (06:27)
[2017-10-08] MEDS: DOCUSATE SODIUM 100 MG CAP PO SCH ×3 (08:57→22:00)
[2017-10-08] MEDS: FAMOTIDINE 20 MG TAB PO SCH ×3 (08:57→22:00)
[2017-10-08] MEDS: OLANZapine 5 MG TAB PO SCH ×2 (08:57→22:00)
[2017-10-08] MEDS: FERROUS SULFATE 325 MG (65 MG ELEMENTAL IRON) TAB PO SCH (08:57)
[2017-10-08] MEDS: METOPROLOL TARTRATE 50 MG TAB PO SCH ×3 (08:57→22:00)
--- NOTE | 2017-10-08 11:00 | PD.TTN ---
Patient Problems 1. Discharge planning 2. Medication compliance 3. Knowledge deficit 4. Lack of coping skills Progress Toward Goals Provider Present: Dr. Gal Helms Provider Input: Dr. Helms met to discuss patient's treatment plan, medication and discharge. Patient is alert and oriented to place and person. Patient's speech is minimal, and guarded. Per nursing reports last night patient was quite irritable last night. Patient remains total care per nursing 10/08/17 Patient continues to meet criteria, will continue treatment Nurse(s) Input: Patient's nurse Abner reports patient is total care, guarded, passive and seclusive to herself. 10/08/17 Patient's nurse Mabel reports patient is currently on a one to one, due to aggitation and aggression. Patient has been calm and cooperative so far this morning. Patient had to have an ETO on 10/07/17. Psychiatric Counselors Present: Laurita Jones [facility] Psych Therapist Input: Patient is alert and oriented to place and person. Patient found sitting in the day room watching TV. Patient is alert to person and place. Patient has poor insight into her situation. Patient presents cooperative, pleasant, affect blunted. Patient's speech is clear, low, and pressureed. 10/08/17 Patient seen today sleeping in a Alka chair. Patient is on a one to one due to her being aggitated and aggressive yesterday and needing an ETO. Nurse reports patient is eating, well, and medication compliant. Placement is being looked at for patient. Meeting was held with patient's daughter, essence, Dr. Helms and myself to discuss facilities for patient. Group Spec/RT/OT/SAMANO Present: Melissa Lock, ROXANN, JAZMYNE Diaz Group Spec/RT/OT/SAMANO Input: Patient isolates to her room, no attendence as yet. 10/08/17 Patient unable to tolerate most groups due to level of cognition. Patient participates in coloring appropriately in an independent setting. Laurita Jones [facility] Oct 08, 2017 11:00
--- NOTE | 2017-10-08 15:42 | HHI.PYPN ---
Subjective Chief Complaint: patient confused psychotic demented decrease aggressive behavior Remarks Met with patient's daughter and daughter's cousin this morning along with counselor Laurita. It appears patient has had episodes of control issue and mood lability prior to the onset of the dementia. And that at time she showing some favoritism with her 2 children. Patient then seen on unit patient is somewhat feisty and irritable this afternoon with me. Continues diffusely confused. Those able to be redirected. For now will increase her Zyprexa to 5 mg 8 AM 2 PM and 10 PM. Family does also feel that they're unable For this lady at home and they'll be looking at Review of Systems Except as stated in HPI: all other systems reviewed are Neg Mental Status Examination Appearance: Disheveled, Malodorous Consciousness: Alert Orientation: Person, Place Motor Activity: Other (it appears patient is using a walker will have PT assess ) Speech: Rapid, Other (disorganized) Language: Other (disorganized) Fund of Knowledge: Poor Attention and Concentration: Other (poor) Memory: Impaired Mood: Angry, Sad, Irritable Affect: Other (slight increase range and intensity) Thought Process & Associations: Disorganized Thought Content: Delusional Hallucination Type: None Delusion Type: Paranoid Suicidal Ideation: No Suicidal Plan: No Suicidal Intention: No Homicidal Ideation: No Homicidal Plan: No Homicidal Intention: No Insight: Poor Judgment: Poor Results Labs Date/Time Source Procedure Growth Status 10/02/17 22:05 Urine Random Urine Urine Culture - Final 50-100,000 CFU/ML MIXED GRAM POSITIVE... Complete Vitals/IOs Vital Signs Date Time Temp Pulse Resp B/P (MAP) Pulse Ox O2 Delivery O2 Flow Rate FiO2 10/08/17 06:06 97.4 97 16 142/54 (83) 97 Intake and Output 10/08/17 10/08/17 10/09/17 08:00 16:00 00:00 Intake Total 480 ml 240 ml Balance 480 ml 240 ml Assessment & Plan Problem List: (1) DEMENTIA IN OTH DISEASES CLASSD ELSWHR W BEHAVIORAL DISTURB ICD Codes: F02.81 - DEMENTIA IN OTH DISEASES CLASSD ELSWHR W BEHAVIORAL DISTURB (2) OTHER ALZHEIMER'S DISEASE ICD Codes: G30.8 - OTHER ALZHEIMER'S DISEASE Assessment & Plan Estimated LOS: days patient is demented confused and somewhat labile more irritability coming towards late afternoon and evening please see medication adjustments above Justification for Cont. Inpt. At this time patient will decompensate the placed in lower level of care Discharge Planning Family is looking into appropriate placement Request HC Surrog/Guard Advoc?: Yes Scooby Helms MD Oct 08, 2017 15:42
[2017-10-08 18:53] VITALS: BP 167/69; PULSE 70; RESP 17; TEMP 97.9; O2SAT 99
[2017-10-08] MEDS: ATORVASTATIN 40 MG TAB PO SCH ×2 (20:49→22:00)
[2017-10-09 06:02] VITALS: BP 148/63; PULSE 89; RESP 16; TEMP 97.8; O2SAT 95
[2017-10-09 06:23] VITALS: BP 148/61; PULSE 80
[2017-10-09] MEDS: ISOSORBIDE MONONITRATE 60 MG TAB PO SCH (06:23)
[2017-10-09] MEDS: OLANZapine 5 MG TAB PO SCH ×3 (08:00→21:50)
[2017-10-09] MEDS: DOCUSATE SODIUM 100 MG CAP PO SCH ×2 (08:51→20:29)
[2017-10-09] MEDS: FERROUS SULFATE 325 MG (65 MG ELEMENTAL IRON) TAB PO SCH (08:51)
[2017-10-09] MEDS: FAMOTIDINE 20 MG TAB PO SCH ×2 (08:52→20:29)
[2017-10-09] MEDS: METOPROLOL TARTRATE 50 MG TAB PO SCH ×2 (08:53→20:29)
[2017-10-09 09:00] VITALS: BP 124/55
--- NOTE | 2017-10-09 09:54 | HHI.PYPN ---
Subjective Chief Complaint: patient confused psychotic demented decrease aggressive behavior Remarks Patient seen in dayroom floor [place], patient calm quiet continues diffusely confused disoriented. No behavioral problems at the present time. Patient scheduled for [facility] today Review of Systems Except as stated in HPI: all other systems reviewed are Neg Mental Status Examination Appearance: Disheveled, Malodorous Consciousness: Alert Orientation: Person, Place Motor Activity: Other (it appears patient is using a walker will have PT assess ) Speech: Rapid, Other (disorganized) Language: Other (disorganized) Fund of Knowledge: Poor Attention and Concentration: Other (poor) Memory: Impaired Mood: Angry, Sad, Irritable Affect: Other (slight increase range and intensity) Thought Process & Associations: Disorganized Thought Content: Delusional Hallucination Type: None Delusion Type: Paranoid Suicidal Ideation: No Suicidal Plan: No Suicidal Intention: No Homicidal Ideation: No Homicidal Plan: No Homicidal Intention: No Insight: Poor Judgment: Poor Results Labs Date/Time Source Procedure Growth Status 10/02/17 22:05 Urine Random Urine Urine Culture - Final 50-100,000 CFU/ML MIXED GRAM POSITIVE... Complete Vitals/IOs Vital Signs Date Time Temp Pulse Resp B/P (MAP) Pulse Ox O2 Delivery O2 Flow Rate FiO2 10/09/17 06:23 80 148/61 (90) 10/09/17 06:02 97.8 16 95 Intake and Output 10/09/17 10/09/17 10/10/17 08:00 16:00 00:00 Intake Total 240 ml Balance 240 ml Assessment & Plan Problem List: (1) DEMENTIA IN OTH DISEASES CLASSD ELSWHR W BEHAVIORAL DISTURB ICD Codes: F02.81 - DEMENTIA IN OTH DISEASES CLASSD ELSWHR W BEHAVIORAL DISTURB (2) OTHER ALZHEIMER'S DISEASE ICD Codes: G30.8 - OTHER ALZHEIMER'S DISEASE Assessment & Plan Estimated LOS: days patient is demented confused, pleasant with me at this time , compliant medications, patient scheduled for [place] [facility] today Justification for Cont. Inpt. This time patient would decompensate the placed in a lower level of care Discharge Planning Placement being addressed by patient's family Request HC Surrog/Guard Advoc?: Yes Scooby Helms MD Oct 09, 2017 09:54
--- NOTE | 2017-10-09 13:45 | HHI.PR ---
Subjective Remarks The patient is in the chair answers all the motions seen on the distress at this time. Denies chest pain or shortness of breath or vomiting. Denies lightheadedness. Appears depressed Objective Vitals Vital Signs Date Time Temp Pulse Resp B/P (MAP) Pulse Ox O2 Delivery O2 Flow Rate FiO2 10/09/17 09:00 124/55 (78) 10/09/17 06:23 80 148/61 (90) 10/09/17 06:02 97.8 89 16 148/63 (91) 95 10/08/17 18:53 97.9 70 17 167/69 (101) 99 I/O 10/08/17 10/08/17 10/08/17 10/09/17 10/09/17 10/09/17 07:00 15:00 23:00 07:00 15:00 23:00 Intake Total 720 ml 240 ml 240 ml Balance 720 ml 240 ml 240 ml Intake Oral 720 ml 240 ml 240 ml # Voids 1 # Bowel Movements 0 Result Diagram: 10/06/17 1700 Objective Remarks GENERAL: This is a well-nourished, well-developed elderly female patient, in no apparent distress. Awake and alert. Sitting the day room. CARDIOVASCULAR: Regular rate and rhythm. (+)murmur present. RESPIRATORY: Clear to auscultation. Breath sounds equal bilaterally. No wheezes , rales, or rhonchi. GASTROINTESTINAL: Abdomen soft, non-tender, nondistended. (+)BS. MUSCULOSKELETAL: Extremities without clubbing, cyanosis, or edema. NEUROLOGICAL: Awake and alert. Able to move all extremities spontaneously. No focal neurologic finding appreciated. Normal speech. A/P Assessment and Plan 82yo female with a PMHX of hypertension, coronary artery disease, mentioned, dyslipidemia, osteoarthritis and GERD who was admitted to the inpatient psychiatry unit under [place] for dementia with behavioral disturbance after patient became paranoid believing that someone was trying to attack her. Dementia with behavioral disturbance - Management per psychiatric team UTI - Patient asymptomatic - Urine culture positive for gram positive janay, likely contaminants. D/C antibiotics. NICOLE on CKD - creatinine 1.73/GFR 34 - Baseline creatinine appears to be a 1.4. Kidney function stable. - continue to hold ACEI - encourage fluid intake - avoid nephrotoxic agents CAD - Patient has no cardiac complaints at this time - Aspirin daily Hypertension - Continue to hold ACEI. BP labile but suspect due to episodes of agitation. Overall adequately controlled. - continue on Imdur and Lopressor - Hydralazine prn with parameters - monitor BP and adjust tx accordingly Dyslipidemia - Continue patient on home dose of Lipitor 40 mg daily History of DVT previously on Xarelto - 08/05 repeat ultrasound right lower extremity no longer shows any DVT. Xarelto discontinued. DVT prophylaxis - Patient is ambulatory Patient appears stable at this time. Niki Avina MD Oct 09, 2017 13:45
[2017-10-09 18:00] VITALS: BP 140/63; PULSE 100; RESP 18; TEMP 98.4; O2SAT 96
[2017-10-09] MEDS: diphenhydrAMINE HCL 50 MG CAP - HS PRN PO (20:29)
[2017-10-09] MEDS: ATORVASTATIN 40 MG TAB PO SCH (20:29)
[2017-10-09] MEDS: hydrOXYzine HCL 50 MG TAB PO PRN (20:29)
[2017-10-10] MEDS: hydrOXYzine HCL 50 MG TAB PO PRN ×2 (04:17→18:16)
[2017-10-10] MEDS: ISOSORBIDE MONONITRATE 60 MG TAB PO SCH (06:28)
[2017-10-10 06:43] VITALS: BP 142/63
[2017-10-10] MEDS: METOPROLOL TARTRATE 50 MG TAB PO SCH ×2 (08:03→23:14)
[2017-10-10] MEDS: FAMOTIDINE 20 MG TAB PO SCH ×2 (08:03→23:14)
[2017-10-10] MEDS: FERROUS SULFATE 325 MG (65 MG ELEMENTAL IRON) TAB PO SCH (08:03)
[2017-10-10] MEDS: DOCUSATE SODIUM 100 MG CAP PO SCH ×2 (08:03→23:14)
[2017-10-10] MEDS: OLANZapine 5 MG TAB PO SCH ×3 (08:11→23:14)
[2017-10-10 09:00] VITALS: BP 152/73; PULSE 71; RESP 20; TEMP 98
--- NOTE | 2017-10-10 14:17 | HHI.PYPN ---
Subjective Chief Complaint: patient confused psychotic demented decrease aggressive behavior Remarks Patient seen in day room patient sitting in Alka chair patient seen with nurse Hemal. Patient is overall calm however she still needs interventions and assistance with feeding and ADLs. It appears she was somewhat out of control through later evening last night. Will adjust Seroquel to 3 times a day the last dose being about 10 PM Review of Systems Except as stated in HPI: all other systems reviewed are Neg Mental Status Examination Appearance: Disheveled, Malodorous Consciousness: Alert Orientation: Person, Place Motor Activity: Other (it appears patient is using a walker will have PT assess ) Speech: Rapid, Other (disorganized) Language: Other (disorganized) Fund of Knowledge: Poor Attention and Concentration: Other (poor) Memory: Impaired Mood: Angry, Sad, Irritable Affect: Other (slight increase range and intensity) Thought Process & Associations: Disorganized Thought Content: Delusional Hallucination Type: None Delusion Type: Paranoid Suicidal Ideation: No Suicidal Plan: No Suicidal Intention: No Homicidal Ideation: No Homicidal Plan: No Homicidal Intention: No Insight: Poor Judgment: Poor Results Labs Date/Time Source Procedure Growth Status 10/02/17 22:05 Urine Random Urine Urine Culture - Final 50-100,000 CFU/ML MIXED GRAM POSITIVE... Complete Vitals/IOs Vital Signs Date Time Temp Pulse Resp B/P (MAP) Pulse Ox O2 Delivery O2 Flow Rate FiO2 10/10/17 06:43 142/63 (89) 10/09/17 18:00 98.4 100 18 96 Intake and Output 10/10/17 10/10/17 10/11/17 08:00 16:00 00:00 Intake Total 220 ml 480 ml Balance 220 ml 480 ml Assessment & Plan Problem List: (1) DEMENTIA IN OTH DISEASES CLASSD ELSWHR W BEHAVIORAL DISTURB ICD Codes: F02.81 - DEMENTIA IN OTH DISEASES CLASSD ELSWHR W BEHAVIORAL DISTURB (2) OTHER ALZHEIMER'S DISEASE ICD Codes: G30.8 - OTHER ALZHEIMER'S DISEASE Assessment & Plan Estimated LOS: days patient continues demented confused with some increased agitation related evening. See medication adjustment above Justification for Cont. Inpt. At this time patient will decompensate of placed in a lower level of care Discharge Planning Family continues to work on placement issues Request HC Surrog/Guard Advoc?: Yes Scooby Helms MD Oct 10, 2017 14:17
[2017-10-10 18:17] VITALS: BP 134/69; PULSE 78; RESP 18; TEMP 98.4; O2SAT 99
[2017-10-10] MEDS: ATORVASTATIN 40 MG TAB PO SCH (23:14)
[2017-10-11] MEDS: ISOSORBIDE MONONITRATE 60 MG TAB PO SCH (06:34)
[2017-10-11 06:43] VITALS: BP 175/71; PULSE 81; RESP 16; TEMP 98.7; O2SAT 100
[2017-10-11] MEDS: FERROUS SULFATE 325 MG (65 MG ELEMENTAL IRON) TAB PO SCH (08:28)
[2017-10-11] MEDS: OLANZapine 5 MG TAB PO SCH ×3 (08:28→20:49)
[2017-10-11] MEDS: DOCUSATE SODIUM 100 MG CAP PO SCH ×2 (08:29→20:49)
[2017-10-11] MEDS: FAMOTIDINE 20 MG TAB PO SCH ×2 (08:29→20:50)
[2017-10-11] MEDS: METOPROLOL TARTRATE 50 MG TAB PO SCH ×2 (08:29→20:49)
[2017-10-11 09:56] VITALS: BP 129/82; PULSE 91
--- NOTE | 2017-10-11 16:07 | HHI.PYPN ---
Subjective Chief Complaint: patient confused psychotic demented decrease aggressive behavior Remarks Patient was seen and case discussed with nursing. Patient is alert and oriented 1. Obvious memory deficits. Patient mentions her nursing earlier that animals were trying to get her when she was outside. During our interview , she could not recall the statements. She largely keeps to herself and does not have any aggressive outbursts. Compliant with medications Mental Status Examination Appearance: Disheveled, Malodorous Consciousness: Alert Orientation: Person, Place Motor Activity: Other (it appears patient is using a walker will have PT assess ) Speech: Rapid, Other (disorganized) Language: Other (disorganized) Fund of Knowledge: Poor Attention and Concentration: Other (poor) Memory: Impaired Mood: Angry, Sad, Irritable Affect: Other (slight increase range and intensity) Thought Process & Associations: Disorganized Thought Content: Delusional Hallucination Type: Visual (animals outside) Delusion Type: Paranoid Suicidal Ideation: No Suicidal Plan: No Suicidal Intention: No Homicidal Ideation: No Homicidal Plan: No Homicidal Intention: No Insight: Poor Judgment: Poor Results Labs Date/Time Source Procedure Growth Status 10/02/17 22:05 Urine Random Urine Urine Culture - Final 50-100,000 CFU/ML MIXED GRAM POSITIVE... Complete Vitals/IOs Vital Signs Date Time Temp Pulse Resp B/P (MAP) Pulse Ox O2 Delivery O2 Flow Rate FiO2 10/11/17 09:56 91 129/82 (98) 10/11/17 06:43 98.7 16 100 Assessment & Plan Problem List: (1) DEMENTIA IN OTH DISEASES CLASSD ELSWHR W BEHAVIORAL DISTURB ICD Codes: F02.81 - DEMENTIA IN OTH DISEASES CLASSD ELSWHR W BEHAVIORAL DISTURB (2) OTHER ALZHEIMER'S DISEASE ICD Codes: G30.8 - OTHER ALZHEIMER'S DISEASE Assessment & Plan Continue current treatment plan Justification for Cont. Inpt. Patient will decompensate in a less restrictive setting Request HC Surrog/Guard Advoc?: Yes Constantino Mera DO Oct 11, 2017 16:07
[2017-10-11 18:21] VITALS: BP 150/76; PULSE 83; RESP 18; TEMP 98.5; O2SAT 98
[2017-10-11] MEDS: diphenhydrAMINE HCL 50 MG CAP - HS PRN PO (20:49)
[2017-10-11] MEDS: ATORVASTATIN 40 MG TAB PO SCH (20:50)
[2017-10-12 06:00] VITALS: BP 145/81; PULSE 78; RESP 20; TEMP 98.6; O2SAT 98
[2017-10-12] MEDS: ISOSORBIDE MONONITRATE 60 MG TAB PO SCH (06:03)
[2017-10-12] MEDS: FERROUS SULFATE 325 MG (65 MG ELEMENTAL IRON) TAB PO SCH (09:38)
[2017-10-12] MEDS: DOCUSATE SODIUM 100 MG CAP PO SCH ×2 (09:38→21:00)
[2017-10-12] MEDS: OLANZapine 5 MG TAB PO SCH ×3 (09:38→21:31)
[2017-10-12] MEDS: METOPROLOL TARTRATE 50 MG TAB PO SCH ×2 (09:39→21:00)
[2017-10-12] MEDS: FAMOTIDINE 20 MG TAB PO SCH ×2 (09:39→21:00)
--- NOTE | 2017-10-12 10:30 | HHI.PR ---
Subjective Remarks Follow up dementia, hypertension. Patient seen and examined, sitting in chair comfortably. Denies any pain. Denies any acute new complaints. Spoke with RN with no new updates. Eating well. Denies any nausea or vomiting. Objective Vitals Vital Signs Date Time Temp Pulse Resp B/P (MAP) Pulse Ox O2 Delivery O2 Flow Rate FiO2 10/12/17 06:00 98.6 78 20 145/81 (102) 98 10/11/17 18:21 98.5 83 18 150/76 (100) 98 I/O 10/11/17 10/11/17 10/11/17 10/12/17 10/12/17 10/12/17 07:00 15:00 23:00 07:00 15:00 23:00 Intake Total 60 ml Balance 60 ml Intake Oral 60 ml # Voids 2 1 Objective Remarks GENERAL: This is a well-nourished, well-developed elderly female patient, in no apparent distress. Awake and alert. Sitting the day room. SKIN: Warm and dry. CARDIOVASCULAR: Regular rate and rhythm. (+) murmur present. RESPIRATORY: Clear to auscultation. Breath sounds equal bilaterally. No wheezes , rales, or rhonchi. GASTROINTESTINAL: Abdomen soft, non-tender, nondistended. (+) BS x 4 quadrants. MUSCULOSKELETAL: Extremities without clubbing, cyanosis, or edema. Bilateral DP pulses present. NEUROLOGICAL: Awake and alert. Able to move all extremities spontaneously. No focal neurologic finding appreciated. Normal speech. A/P Assessment and Plan 82yo female with a PMHX of hypertension, coronary artery disease, mentioned, dyslipidemia, osteoarthritis and GERD who was admitted to the inpatient psychiatry unit under [place] for dementia with behavioral disturbance after patient became paranoid believing that someone was trying to attack her. Dementia with behavioral disturbance - Management per psychiatric team UTI - Patient asymptomatic - Urine culture positive for gram positive janay, likely contaminants. D/C antibiotics. NICOLE on CKD - creatinine 1.73/GFR 34 - Baseline creatinine appears to be a 1.4. Kidney function stable. - continue to hold ACEI - encourage fluid intake - avoid nephrotoxic agents CAD - Patient has no cardiac complaints at this time - Aspirin daily Hypertension - Continue to hold ACEI. BP labile but suspect due to episodes of agitation. Overall adequately controlled. - continue on Imdur and Lopressor - Hydralazine and clonidine prn with parameters - monitor BP and adjust tx accordingly Dyslipidemia - Continue patient on home dose of Lipitor 40 mg daily History of DVT previously on Xarelto - 08/05 repeat ultrasound right lower extremity no longer shows any DVT. Xarelto discontinued. DVT prophylaxis - Patient is ambulatory Patient is stable. Vitals are stable. Will sign off at this time, if needed please reconsult. Monica Gonzalez Oct 12, 2017 10:30
--- NOTE | 2017-10-12 14:28 | HHI.PYPN ---
Subjective Chief Complaint: patient confused psychotic demented decrease aggressive behavior Remarks Patient was seen and case discussed with nursing. Patient is alert and oriented 1. She refused her medications this morning. Thought processes loose and disorganized. Sleeping poorly per nursing. Only ate 10% of her meals. Picking at the air throughout the day. Mental Status Examination Appearance: Disheveled, Malodorous Consciousness: Alert Orientation: Person, Place Motor Activity: Other (it appears patient is using a walker will have PT assess ) Speech: Rapid, Other (disorganized) Language: Other (disorganized) Fund of Knowledge: Poor Attention and Concentration: Other (poor) Memory: Impaired Mood: Angry, Sad, Irritable Affect: Other (slight increase range and intensity) Thought Process & Associations: Disorganized Thought Content: Delusional Hallucination Type: Visual (animals outside) Delusion Type: Paranoid Suicidal Ideation: No Suicidal Plan: No Suicidal Intention: No Homicidal Ideation: No Homicidal Plan: No Homicidal Intention: No Insight: Poor Judgment: Poor Results Labs Date/Time Source Procedure Growth Status 10/02/17 22:05 Urine Random Urine Urine Culture - Final 50-100,000 CFU/ML MIXED GRAM POSITIVE... Complete Vitals/IOs Vital Signs Date Time Temp Pulse Resp B/P (MAP) Pulse Ox O2 Delivery O2 Flow Rate FiO2 10/12/17 06:00 98.6 78 20 145/81 (102) 98 Intake and Output 10/12/17 10/12/17 10/13/17 08:00 16:00 00:00 Intake Total 60 ml Balance 60 ml Assessment & Plan Problem List: (1) DEMENTIA IN OTH DISEASES CLASSD ELSWHR W BEHAVIORAL DISTURB ICD Codes: F02.81 - DEMENTIA IN OTH DISEASES CLASSD ELSWHR W BEHAVIORAL DISTURB (2) OTHER ALZHEIMER'S DISEASE ICD Codes: G30.8 - OTHER ALZHEIMER'S DISEASE Assessment & Plan Continue current treatment plan Justification for Cont. Inpt. Patient would decompensate in a less restrictive setting Request HC Surrog/Guard Advoc?: Yes Constantino Mera DO Oct 12, 2017 14:28
[2017-10-12 18:08] VITALS: BP 155/98; PULSE 109; RESP 18; TEMP 98.8; O2SAT 99
[2017-10-12] MEDS: ATORVASTATIN 40 MG TAB PO SCH (21:00)
[2017-10-13] MEDS: ISOSORBIDE MONONITRATE 60 MG TAB PO SCH (06:15)
[2017-10-13 06:41] VITALS: BP 157/70; PULSE 74; RESP 15; TEMP 98; O2SAT 99
[2017-10-13] MEDS: FAMOTIDINE 20 MG TAB PO SCH ×2 (08:07→20:36)
[2017-10-13] MEDS: FERROUS SULFATE 325 MG (65 MG ELEMENTAL IRON) TAB PO SCH (08:07)
[2017-10-13] MEDS: DOCUSATE SODIUM 100 MG CAP PO SCH ×2 (08:08→20:45)
[2017-10-13] MEDS: METOPROLOL TARTRATE 50 MG TAB PO SCH ×2 (08:08→20:36)
[2017-10-13] MEDS: OLANZapine 5 MG TAB PO SCH ×3 (08:09→21:55)
--- NOTE | 2017-10-13 09:16 | HHI.PYPN ---
Subjective Chief Complaint: patient confused psychotic demented decrease aggressive behavior Remarks Patient seen in day room with nurse Heidi, chart review, patient compliant medications. Patient continues diffusely confused and disoriented dating frequent interventions but no significant behavioral problems at this time. Patient states she is going home with her daughter next week. Family continues to work on placement issues Review of Systems Except as stated in HPI: all other systems reviewed are Neg Mental Status Examination Appearance: Disheveled, Malodorous Consciousness: Alert Orientation: Person, Place Motor Activity: Other (it appears patient is using a walker will have PT assess ) Speech: Rapid, Other (disorganized) Language: Other (disorganized) Fund of Knowledge: Poor Attention and Concentration: Other (poor) Memory: Impaired Mood: Angry, Sad, Irritable Affect: Other (slight increase range and intensity) Thought Process & Associations: Disorganized Thought Content: Delusional Hallucination Type: Visual (animals outside) Delusion Type: Paranoid Suicidal Ideation: No Suicidal Plan: No Suicidal Intention: No Homicidal Ideation: No Homicidal Plan: No Homicidal Intention: No Insight: Poor Judgment: Poor Results Labs Date/Time Source Procedure Growth Status 10/02/17 22:05 Urine Random Urine Urine Culture - Final 50-100,000 CFU/ML MIXED GRAM POSITIVE... Complete Vitals/IOs Vital Signs Date Time Temp Pulse Resp B/P (MAP) Pulse Ox O2 Delivery O2 Flow Rate FiO2 10/13/17 06:41 98.0 74 15 157/70 (99) 99 Intake and Output 10/13/17 10/13/17 10/14/17 08:00 16:00 00:00 Intake Total 240 ml Balance 240 ml Assessment & Plan Problem List: (1) DEMENTIA IN OTH DISEASES CLASSD ELSWHR W BEHAVIORAL DISTURB ICD Codes: F02.81 - DEMENTIA IN OTH DISEASES CLASSD ELSWHR W BEHAVIORAL DISTURB (2) OTHER ALZHEIMER'S DISEASE ICD Codes: G30.8 - OTHER ALZHEIMER'S DISEASE Assessment & Plan Estimated LOS: days patient continues confused demented, needing occasional interventions but overall no significant behavioral problems Justification for Cont. Inpt. At this time patient will decompensate if placed in a lower level of care Discharge Planning Family continues to work on placement issues Request HC Surrog/Guard Advoc?: Yes Scooby Helms MD Oct 13, 2017 09:16
[2017-10-13 17:52] VITALS: BP 164/60; PULSE 74; RESP 16; TEMP 98.1; O2SAT 92
[2017-10-13] MEDS: ATORVASTATIN 40 MG TAB PO SCH (20:45)
[2017-10-14 05:47] VITALS: BP 115/70; PULSE 67; RESP 16; TEMP 97.1; O2SAT 96
[2017-10-14] MEDS: ISOSORBIDE MONONITRATE 60 MG TAB PO SCH (07:00)
[2017-10-14 08:23] VITALS: BP 165/63
[2017-10-14] MEDS: OLANZapine 5 MG TAB PO SCH ×3 (08:23→22:00)
[2017-10-14] MEDS: METOPROLOL TARTRATE 50 MG TAB PO SCH ×2 (08:24→20:53)
[2017-10-14] MEDS: FAMOTIDINE 20 MG TAB PO SCH ×2 (08:24→20:53)
[2017-10-14] MEDS: FERROUS SULFATE 325 MG (65 MG ELEMENTAL IRON) TAB PO SCH (08:24)
[2017-10-14] MEDS: DOCUSATE SODIUM 100 MG CAP PO SCH ×2 (08:24→20:53)
--- NOTE | 2017-10-14 11:09 | PD.TTN ---
Patient Problems 1. Discharge planning 2. Medication compliance 3. Knowledge deficit 4. Lack of coping skills Progress Toward Goals Provider Present: Dr. Gal Helms Provider Input: 10/14 Patient is observed to . Patient is oriented x2. Patient is guarded and has been somewhat combative. Dr. Helms met to discuss patient's treatment plan, medication and discharge. Patient is alert and oriented to place and person. Patient's speech is minimal, and guarded. Per nursing reports last night patient was quite irritable last night. Patient remains total care per nursing 10/08/17 Patient continues to meet criteria, will continue treatment Nurse(s) Input: 10/14 Patient is somewhat noncompliant with medications and is observed to be somewhat seclusive. Patient does not show any significant behavioral issues on the unit. Will continue to monitor for behavior.Patient is eating meals. Pleasantly confused. Patient's nurse Abner reports patient is total care, guarded, passive and seclusive to herself. 10/08/17 Patient's nurse Mabel reports patient is currently on a one to one, due to aggitation and aggression. Patient has been calm and cooperative so far this morning. Patient had to have an ETO on 10/07/17. Psychiatric Counselors Present: Laurita Jones [facility] Psych Therapist Input: 10/14 Patient is cooperative and calm and observed to be seclusive to the room. Patient is alert and oriented to place and person. Patient found sitting in the day room watching TV. Patient is alert to person and place. Patient has poor insight into her situation. Patient presents cooperative, pleasant, affect blunted. Patient's speech is clear, low, and pressureed. 10/08/17 Patient seen today sleeping in a Alka chair. Patient is on a one to one due to her being aggitated and aggressive yesterday and needing an ETO. Nurse reports patient is eating, well, and medication compliant. Placement is being looked at for patient. Meeting was held with patient's daughter, essence, Dr. Helms and myself to discuss facilities for patient. Group Spec/RT/OT/SAMANO Present: Melissa Lock, GPS, JAZMYNE Diaz Group Spec/RT/OT/SAMANO Input: Patient isolates to her room, no attendence as yet. 10/08/17 Patient unable to tolerate most groups due to level of cognition. Patient participates in coloring appropriately in an independent setting. Ros[facility] Lombardi [facility] Oct 14, 2017 11:09
--- NOTE | 2017-10-14 11:32 | HHI.PYPN ---
Subjective Chief Complaint: patient confused psychotic demented decrease aggressive behavior Remarks Patient seen in day room with floor staff, patient calm pleasant with me today. Chart reviewed. Patient compliant medication. Remains confused and disoriented. Needing significant intervention and assistance there is no behavior problems noted at this time Review of Systems Except as stated in HPI: all other systems reviewed are Neg Mental Status Examination Appearance: Disheveled, Malodorous Consciousness: Alert Orientation: Person, Place Motor Activity: Other (it appears patient is using a walker will have PT assess ) Speech: Rapid, Other (disorganized) Language: Other (disorganized) Fund of Knowledge: Poor Attention and Concentration: Other (poor) Memory: Impaired Mood: Angry, Sad, Irritable Affect: Other (slight increase range and intensity) Thought Process & Associations: Disorganized Thought Content: Delusional Hallucination Type: Visual (animals outside) Delusion Type: Paranoid Suicidal Ideation: No Suicidal Plan: No Suicidal Intention: No Homicidal Ideation: No Homicidal Plan: No Homicidal Intention: No Insight: Poor Judgment: Poor Results Labs Date/Time Source Procedure Growth Status 10/02/17 22:05 Urine Random Urine Urine Culture - Final 50-100,000 CFU/ML MIXED GRAM POSITIVE... Complete Vitals/IOs Vital Signs Date Time Temp Pulse Resp B/P (MAP) Pulse Ox O2 Delivery O2 Flow Rate FiO2 10/14/17 08:23 165/63 (97) 10/14/17 05:47 97.1 67 16 96 Intake and Output 10/14/17 10/14/17 10/15/17 08:00 16:00 00:00 Intake Total 360 ml Balance 360 ml Assessment & Plan Problem List: (1) DEMENTIA IN OTH DISEASES CLASSD ELSWHR W BEHAVIORAL DISTURB ICD Codes: F02.81 - DEMENTIA IN OTH DISEASES CLASSD ELSWHR W BEHAVIORAL DISTURB (2) OTHER ALZHEIMER'S DISEASE ICD Codes: G30.8 - OTHER ALZHEIMER'S DISEASE Assessment & Plan Estimated LOS: days patient continues confused and demented, no significant behavior problems at this time. Compliant medication. Justification for Cont. Inpt. With this time patient will decompensate to place a lower level of care Discharge Planning Place remains problematic family continues to work on this Request HC Surrog/Guard Advoc?: Yes Scooby Helms MD Oct 14, 2017 11:32
[2017-10-14 18:33] VITALS: BP 155/67; PULSE 84; RESP 16; TEMP 98.1; O2SAT 94
[2017-10-14] MEDS: ATORVASTATIN 40 MG TAB PO SCH (20:53)
[2017-10-14] MEDS: diphenhydrAMINE HCL 50 MG CAP - HS PRN PO (20:54)
[2017-10-15 05:57] VITALS: BP 167/72; PULSE 76; RESP 15; TEMP 96.2; O2SAT 97
[2017-10-15] MEDS: ISOSORBIDE MONONITRATE 60 MG TAB PO SCH (06:40)
[2017-10-15] MEDS: OLANZapine 5 MG TAB PO SCH ×3 (08:00→22:00)
[2017-10-15] MEDS: DOCUSATE SODIUM 100 MG CAP PO SCH ×2 (09:00→21:00)
[2017-10-15] MEDS: METOPROLOL TARTRATE 50 MG TAB PO SCH ×2 (09:00→21:00)
[2017-10-15] MEDS: FAMOTIDINE 20 MG TAB PO SCH ×2 (09:00→21:00)
[2017-10-15] MEDS: FERROUS SULFATE 325 MG (65 MG ELEMENTAL IRON) TAB PO SCH (09:00)
--- NOTE | 2017-10-15 09:25 | HHI.PYPN ---
Subjective Chief Complaint: patient confused psychotic demented decrease aggressive behavior Remarks Patient seen in [facility] with nurse Nellie, chart reviewed, patient compliant medication. Patient calm cooperative continues diffusely confused needing significant intervention and assistance with ADLs and eating. However no significant behavioral problems noted at this time. Review of Systems Except as stated in HPI: all other systems reviewed are Neg Mental Status Examination Appearance: Disheveled, Malodorous Consciousness: Alert Orientation: Person, Place Motor Activity: Other (it appears patient is using a walker will have PT assess ) Speech: Rapid, Other (disorganized) Language: Other (disorganized) Fund of Knowledge: Poor Attention and Concentration: Other (poor) Memory: Impaired Mood: Angry, Sad, Irritable Affect: Other (slight increase range and intensity) Thought Process & Associations: Disorganized Thought Content: Delusional Hallucination Type: Visual (animals outside) Delusion Type: Paranoid Suicidal Ideation: No Suicidal Plan: No Suicidal Intention: No Homicidal Ideation: No Homicidal Plan: No Homicidal Intention: No Insight: Poor Judgment: Poor Results Labs Date/Time Source Procedure Growth Status 10/02/17 22:05 Urine Random Urine Urine Culture - Final 50-100,000 CFU/ML MIXED GRAM POSITIVE... Complete Vitals/IOs Vital Signs Date Time Temp Pulse Resp B/P (MAP) Pulse Ox O2 Delivery O2 Flow Rate FiO2 10/15/17 05:57 96.2 76 15 167/72 (103) 97 Intake and Output 10/15/17 10/15/17 10/16/17 08:00 16:00 00:00 Intake Total 240 ml Balance 240 ml Assessment & Plan Problem List: (1) DEMENTIA IN OTH DISEASES CLASSD ELSWHR W BEHAVIORAL DISTURB ICD Codes: F02.81 - DEMENTIA IN OTH DISEASES CLASSD ELSWHR W BEHAVIORAL DISTURB (2) OTHER ALZHEIMER'S DISEASE ICD Codes: G30.8 - OTHER ALZHEIMER'S DISEASE Assessment & Plan Estimated LOS: days patient continues demented and confused. Though at this time no behavior problems. Compliant medications. Justification for Cont. Inpt. At this time patient decompensate if not placed in an appropriate level of care Discharge Planning Place and remains problematic Request HC Surrog/Guard Advoc?: Yes Scooby Helms MD Oct 15, 2017 09:25
[2017-10-15] MEDS: hydrOXYzine HCL 50 MG TAB PO PRN (09:44)
[2017-10-15] MEDS: cloNIDine HCL 0.1 MG TAB PO PRN (17:40)
[2017-10-15 18:00] VITALS: BP 186/72
[2017-10-15] MEDS: ATORVASTATIN 40 MG TAB PO SCH (21:00)
[2017-10-16 02:00] VITALS: BP 203/84; PULSE 92; RESP 12; TEMP 98.3; O2SAT 96
[2017-10-16] MEDS: cloNIDine HCL 0.1 MG TAB PO PRN (02:09)
[2017-10-16 03:09] VITALS: BP 158/71
[2017-10-16 05:45] VITALS: BP 171/72; PULSE 72; RESP 18; TEMP 97.3; O2SAT 97
[2017-10-16] MEDS: ISOSORBIDE MONONITRATE 60 MG TAB PO SCH (06:03)
[2017-10-16] MEDS: METOPROLOL TARTRATE 50 MG TAB PO SCH ×2 (09:50→21:00)
[2017-10-16] MEDS: OLANZapine 5 MG TAB PO SCH ×3 (09:50→21:20)
[2017-10-16] MEDS: FERROUS SULFATE 325 MG (65 MG ELEMENTAL IRON) TAB PO SCH (09:51)
[2017-10-16] MEDS: DOCUSATE SODIUM 100 MG CAP PO SCH ×2 (09:51→21:00)
[2017-10-16] MEDS: FAMOTIDINE 20 MG TAB PO SCH ×2 (09:51→21:00)
--- NOTE | 2017-10-16 12:53 | HHI.PYPN ---
Subjective Chief Complaint: patient confused psychotic demented decrease aggressive behavior Remarks Patient seen in her room the floor staff, chart reviewed, patient compliant medications. If remains diffusely confused but somewhat more verbal today missing when she is going to be discharged stimuli she still living here. For now continue treatment. Placement remains somewhat problematic Review of Systems Except as stated in HPI: all other systems reviewed are Neg Mental Status Examination Appearance: Disheveled, Malodorous Consciousness: Alert Orientation: Person, Place Motor Activity: Other (it appears patient is using a walker will have PT assess ) Speech: Rapid, Other (disorganized) Language: Other (disorganized) Fund of Knowledge: Poor Attention and Concentration: Other (poor) Memory: Impaired Mood: Angry, Sad, Irritable Affect: Other (slight increase range and intensity) Thought Process & Associations: Disorganized Thought Content: Delusional Hallucination Type: Visual (animals outside) Delusion Type: Paranoid Suicidal Ideation: No Suicidal Plan: No Suicidal Intention: No Homicidal Ideation: No Homicidal Plan: No Homicidal Intention: No Insight: Poor Judgment: Poor Results Labs Date/Time Source Procedure Growth Status 10/02/17 22:05 Urine Random Urine Urine Culture - Final 50-100,000 CFU/ML MIXED GRAM POSITIVE... Complete Vitals/IOs Vital Signs Date Time Temp Pulse Resp B/P (MAP) Pulse Ox O2 Delivery O2 Flow Rate FiO2 10/16/17 05:45 97.3 72 18 171/72 (105) 97 Intake and Output 10/16/17 10/16/17 10/17/17 08:00 16:00 00:00 Intake Total 0 ml Balance 0 ml Assessment & Plan Problem List: (1) DEMENTIA IN OTH DISEASES CLASSD ELSWHR W BEHAVIORAL DISTURB ICD Codes: F02.81 - DEMENTIA IN OTH DISEASES CLASSD ELSWHR W BEHAVIORAL DISTURB (2) OTHER ALZHEIMER'S DISEASE ICD Codes: G30.8 - OTHER ALZHEIMER'S DISEASE Assessment & Plan Estimated LOS: days patient remains confused and demented, she is verbal and somewhat feisty today. However overall no significant behavioral problems. Justification for Cont. Inpt. At this time patient will decompensate if not placed in an appropriate level of care Discharge Planning Continue to work with the family with placement issues Request HC Surrog/Guard Advoc?: Yes Scooby Helms MD Oct 16, 2017 12:53
--- NOTE | 2017-10-16 15:40 | PD.TTN ---
Patient Problems 1. Discharge planning 2. Medication compliance 3. Knowledge deficit 4. Lack of coping skills Progress Toward Goals Provider Present: Dr. Gal Helms Provider Input: 10/16/2017; patient continues to be unstable, and requires more time to stablize, patient's medications be adjusted to address her mood/behavior 10/14 Patient is observed to . Patient is oriented x2. Patient is guarded and has been somewhat combative. Dr. Helms met to discuss patient's treatment plan, medication and discharge. Patient is alert and oriented to place and person. Patient's speech is minimal, and guarded. Per nursing reports last night patient was quite irritable last night. Patient remains total care per nursing 10/08/17 Patient continues to meet criteria, will continue treatment Nurse(s) Input: 10/16/2017; Per SALO Whyte; patient is difficult to redirect, she requires coaching and prompting with most of her needs 10/14 Patient is somewhat noncompliant with medications and is observed to be somewhat seclusive. Patient does not show any significant behavioral issues on the unit. Will continue to monitor for behavior.Patient is eating meals. Pleasantly confused. Patient's nurse Abner reports patient is total care, guarded, passive and seclusive to herself. 10/08/17 Patient's nurse Mabel reports patient is currently on a one to one, due to aggitation and aggression. Patient has been calm and cooperative so far this morning. Patient had to have an ETO on 10/07/17. Psychiatric Counselors Present: [facility]ita Jones [facility] Kandy Concepcion, [facility] Psych Therapist Input: 10/16/2017; counelor will assess patient for appropriate dc plan and reach out to family 10/14 Patient is cooperative and calm and observed to be seclusive to the room. Patient is alert and oriented to place and person. Patient found sitting in the day room watching TV. Patient is alert to person and place. Patient has poor insight into her situation. Patient presents cooperative, pleasant, affect blunted. Patient's speech is clear, low, and pressureed. 10/08/17 Patient seen today sleeping in a Alka chair. Patient is on a one to one due to her being aggitated and aggressive yesterday and needing an ETO. Nurse reports patient is eating, well, and medication compliant. Placement is being looked at for patient. Meeting was held with patient's daughter, essence, Dr. Helms and myself to discuss facilities for patient. Group Spec/RT/OT/SAMANO Present: Melissa Lock, GPS, JAZMYNE Diaz, Shiraz Tay, OT Group Spec/RT/OT/SAMANO Input: 10/16/2017 Patient lacks insight with groups and activity participation Patient isolates to her room, no attendence as yet. 10/08/17 Patient unable to tolerate most groups due to level of cognition. Patient participates in coloring appropriately in an independent setting. Discharge Plan Patient will require NH placement when stable 3008 and Level 1 complete and faxed to appropriate placements Documentation Scribe: LORENA Mello Sandra [facility] Oct 16, 2017 15:40
[2017-10-16 18:14] VITALS: BP 156/68; PULSE 85; RESP 17; TEMP 97.9; O2SAT 97
[2017-10-16] MEDS: ATORVASTATIN 40 MG TAB PO SCH (21:00)
[2017-10-16] MEDS: ACETAMINOPHEN 325 MG TAB PO PRN (22:26)
[2017-10-17] MEDS: ISOSORBIDE MONONITRATE 60 MG TAB PO SCH (06:05)
[2017-10-17 06:13] VITALS: BP 149/65; PULSE 70; RESP 18; TEMP 97.6; O2SAT 95
--- NOTE | 2017-10-17 08:54 | HHI.PYPN ---
Subjective Chief Complaint: patient confused psychotic demented decrease aggressive behavior Remarks Patient seen on unit with RN. Patient continues confused demented, and slightly irritable but overall no behavior problems. Compliant medications. Chart review. For now continue treatment placement remain somewhat problematic Review of Systems Except as stated in HPI: all other systems reviewed are Neg Mental Status Examination Appearance: Disheveled, Malodorous Consciousness: Alert Orientation: Person, Place Motor Activity: Other (it appears patient is using a walker will have PT assess ) Speech: Rapid, Other (disorganized) Language: Other (disorganized) Fund of Knowledge: Poor Attention and Concentration: Other (poor) Memory: Impaired Mood: Angry, Sad, Irritable Affect: Other (slight increase range and intensity) Thought Process & Associations: Disorganized Thought Content: Delusional Hallucination Type: Visual (animals outside) Delusion Type: Paranoid Suicidal Ideation: No Suicidal Plan: No Suicidal Intention: No Homicidal Ideation: No Homicidal Plan: No Homicidal Intention: No Insight: Poor Judgment: Poor Results Labs Date/Time Source Procedure Growth Status 10/02/17 22:05 Urine Random Urine Urine Culture - Final 50-100,000 CFU/ML MIXED GRAM POSITIVE... Complete Vitals/IOs Vital Signs Date Time Temp Pulse Resp B/P (MAP) Pulse Ox O2 Delivery O2 Flow Rate FiO2 10/17/17 06:13 97.6 70 18 149/65 (93) 95 Intake and Output 10/17/17 10/17/17 10/18/17 08:00 16:00 00:00 Intake Total 120 ml Balance 120 ml Assessment & Plan Problem List: (1) DEMENTIA IN OTH DISEASES CLASSD ELSWHR W BEHAVIORAL DISTURB ICD Codes: F02.81 - DEMENTIA IN OTH DISEASES CLASSD ELSWHR W BEHAVIORAL DISTURB (2) OTHER ALZHEIMER'S DISEASE ICD Codes: G30.8 - OTHER ALZHEIMER'S DISEASE Assessment & Plan Estimated LOS: days patient continues confused and demented, though no significant behavioral problems noted she still remains somewhat "feisty". Justification for Cont. Inpt. If this time patient would decompensate if not place an appropriate level of care Discharge Planning Continue to work with family to arrange appropriate placement Request HC Surrog/Guard Advoc?: Yes Scooby Helms MD Oct 17, 2017 08:54
[2017-10-17] MEDS: FERROUS SULFATE 325 MG (65 MG ELEMENTAL IRON) TAB PO SCH (10:20)
[2017-10-17] MEDS: FAMOTIDINE 20 MG TAB PO SCH ×2 (10:20→21:41)
[2017-10-17] MEDS: DOCUSATE SODIUM 100 MG CAP PO SCH ×2 (10:20→21:41)
[2017-10-17] MEDS: OLANZapine 5 MG TAB PO SCH ×3 (10:21→21:41)
[2017-10-17] MEDS: METOPROLOL TARTRATE 50 MG TAB PO SCH ×2 (10:21→21:41)
[2017-10-17 17:55] VITALS: BP 164/72; PULSE 82; RESP 16; TEMP 97.8; O2SAT 99
[2017-10-17] MEDS: ACETAMINOPHEN 325 MG TAB PO PRN (18:34)
[2017-10-17 21:00] VITALS: BP 132/63; PULSE 97; RESP 18; TEMP 97.7
[2017-10-17] MEDS: ATORVASTATIN 40 MG TAB PO SCH (21:41)
[2017-10-17 22:00] VITALS: BP 132/63; PULSE 79; RESP 18; TEMP 97.7; O2SAT 93
[2017-10-18 02:00] VITALS: BP 169/70; PULSE 62; RESP 16; TEMP 97.4; O2SAT 96
[2017-10-18 06:00] VITALS: BP 177/74; PULSE 77; RESP 16; TEMP 97; O2SAT 93
[2017-10-18] MEDS: ISOSORBIDE MONONITRATE 60 MG TAB PO SCH (07:00)
[2017-10-18] MEDS: FERROUS SULFATE 325 MG (65 MG ELEMENTAL IRON) TAB PO SCH (07:56)
[2017-10-18] MEDS: OLANZapine 5 MG TAB PO SCH ×3 (07:56→21:29)
[2017-10-18] MEDS: METOPROLOL TARTRATE 50 MG TAB PO SCH ×2 (07:56→21:29)
[2017-10-18] MEDS: DOCUSATE SODIUM 100 MG CAP PO SCH ×2 (07:56→21:29)
[2017-10-18] MEDS: FAMOTIDINE 20 MG TAB PO SCH ×2 (07:57→21:29)
[2017-10-18 18:00] VITALS: BP 157/70; PULSE 81; RESP 18; TEMP 97.9; O2SAT 97
--- NOTE | 2017-10-18 19:18 | HHI.PYPN ---
Subjective Remarks Pt seen and discussed with staff. She remains confused but has been pleasant and cooperative today. No agitation. Compliant with medications. Mental Status Examination Appearance: Disheveled, Malodorous Consciousness: Alert Orientation: Person, Place Motor Activity: Other (it appears patient is using a walker will have PT assess ) Speech: Rapid, Other Language: Perseveration Fund of Knowledge: Poor Attention and Concentration: Other (poor) Memory: Impaired Mood: Other (calm) Affect: Flat Thought Process & Associations: Disorganized Thought Content: Delusional Delusion Type: Paranoid Suicidal Ideation: No Suicidal Plan: No Suicidal Intention: No Homicidal Ideation: No Homicidal Plan: No Homicidal Intention: No Insight: Poor Judgment: Poor Results Labs Date/Time Source Procedure Growth Status 10/02/17 22:05 Urine Random Urine Urine Culture - Final 50-100,000 CFU/ML MIXED GRAM POSITIVE... Complete Vitals/IOs Vital Signs Date Time Temp Pulse Resp B/P (MAP) Pulse Ox O2 Delivery O2 Flow Rate FiO2 10/18/17 18:00 97.9 81 18 157/70 (99) 97 Intake and Output 10/18/17 10/18/17 10/19/17 08:00 16:00 00:00 Intake Total 120 ml 200 ml 240 ml Balance 120 ml 200 ml 240 ml Assessment & Plan Problem List: (1) DEMENTIA IN OTH DISEASES CLASSD ELSWHR W BEHAVIORAL DISTURB ICD Codes: F02.81 - DEMENTIA IN OTH DISEASES CLASSD ELSWHR W BEHAVIORAL DISTURB (2) OTHER ALZHEIMER'S DISEASE ICD Codes: G30.8 - OTHER ALZHEIMER'S DISEASE Assessment & Plan Continue current tx plan. Estimated LOS: days Justification for Cont. Inpt. risk of decompensation Request HC Surrog/Guard Advoc?: Yes Neelam Prabhakar MD Oct 18, 2017 19:18
[2017-10-18] MEDS: ATORVASTATIN 40 MG TAB PO SCH (21:29)
[2017-10-19 06:00] VITALS: BP 148/74; PULSE 95; RESP 17; TEMP 98.2; O2SAT 97
[2017-10-19] MEDS: ISOSORBIDE MONONITRATE 60 MG TAB PO SCH (06:19)
[2017-10-19] MEDS: DOCUSATE SODIUM 100 MG CAP PO SCH ×2 (09:02→22:04)
[2017-10-19] MEDS: FAMOTIDINE 20 MG TAB PO SCH ×2 (09:02→22:04)
[2017-10-19] MEDS: FERROUS SULFATE 325 MG (65 MG ELEMENTAL IRON) TAB PO SCH (09:02)
[2017-10-19] MEDS: METOPROLOL TARTRATE 50 MG TAB PO SCH ×2 (09:02→22:04)
[2017-10-19] MEDS: OLANZapine 5 MG TAB PO SCH ×3 (09:04→22:07)
[2017-10-19] MEDS ORDERED: HALOPERIDOL LACTATE 5 MG/ML AMP IM STA (10:23)
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
[2017-10-19 18:20] VITALS: BP 187/81; PULSE 93; RESP 17; O2SAT 100
[2017-10-19] MEDS: ATORVASTATIN 40 MG TAB PO SCH (22:04)
[2017-10-19 22:15] VITALS: BP 156/70; PULSE 101; RESP 27; O2SAT 95
[2017-10-20] MEDS: ISOSORBIDE MONONITRATE 60 MG TAB PO SCH (06:12)
[2017-10-20 06:23] VITALS: BP 141/89; PULSE 97; RESP 21; TEMP 97.9; O2SAT 98
[2017-10-20] MEDS: METOPROLOL TARTRATE 50 MG TAB PO SCH ×2 (09:43→23:16)
[2017-10-20] MEDS: DOCUSATE SODIUM 100 MG CAP PO SCH ×2 (09:43→23:17)
[2017-10-20] MEDS: FAMOTIDINE 20 MG TAB PO SCH ×2 (09:43→23:17)
[2017-10-20] MEDS: FERROUS SULFATE 325 MG (65 MG ELEMENTAL IRON) TAB PO SCH (09:43)
[2017-10-20] MEDS: OLANZapine 5 MG TAB PO SCH ×3 (09:47→23:20)
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
[2017-10-20 18:00] VITALS: BP 170/73; PULSE 97; RESP 16; O2SAT 98
[2017-10-20] MEDS: diphenhydrAMINE HCL 50 MG CAP - HS PRN PO (23:16)
[2017-10-20] MEDS: ATORVASTATIN 40 MG TAB PO SCH (23:17)
[2017-10-20] MEDS: ACETAMINOPHEN 325 MG TAB PO PRN (23:18)
[2017-10-21 06:17] VITALS: BP 162/71; PULSE 78; RESP 16; TEMP 97.5; O2SAT 95
[2017-10-21] MEDS: ISOSORBIDE MONONITRATE 60 MG TAB PO SCH (06:24)
[2017-10-21] MEDS: FERROUS SULFATE 325 MG (65 MG ELEMENTAL IRON) TAB PO SCH (09:00)
[2017-10-21] MEDS: METOPROLOL TARTRATE 50 MG TAB PO SCH ×2 (09:55→20:35)
[2017-10-21] MEDS: FAMOTIDINE 20 MG TAB PO SCH ×2 (09:55→20:35)
[2017-10-21] MEDS: DOCUSATE SODIUM 100 MG CAP PO SCH ×2 (09:55→20:35)
[2017-10-21] MEDS: OLANZapine 5 MG TAB PO SCH ×3 (09:58→20:35)
--- NOTE | 2017-10-21 10:04 | HHI.PYPN ---
Subjective Remarks Patient seen in her room with floor staff, chart review, patient compliant medication. Patient continues diffusely confused disoriented but pleasant with me. However review of behaviors show some increased irritability towards the afternoon and evening more oppositional behavior, and lability. Will decrease Zyprexa to 5 mg a.m. 7.5 mg at 14 and 7.5 mg at 22 Review of Systems Except as stated in HPI: all other systems reviewed are Neg Mental Status Examination Appearance: Disheveled, Malodorous Consciousness: Alert Orientation: Person, Place Motor Activity: Other (it appears patient is using a walker will have PT assess ) Speech: Rapid, Other Language: Perseveration Fund of Knowledge: Poor Attention and Concentration: Other (poor) Memory: Impaired Mood: Irritable Affect: Irritable Thought Process & Associations: Disorganized Thought Content: Delusional Delusion Type: Paranoid Suicidal Ideation: No Suicidal Plan: No Suicidal Intention: No Homicidal Ideation: No Homicidal Plan: No Homicidal Intention: No Insight: Poor Judgment: Poor Results Labs Date/Time Source Procedure Growth Status 10/02/17 22:05 Urine Random Urine Urine Culture - Final 50-100,000 CFU/ML MIXED GRAM POSITIVE... Complete Vitals/IOs Vital Signs Date Time Temp Pulse Resp B/P (MAP) Pulse Ox O2 Delivery O2 Flow Rate FiO2 10/21/17 06:17 97.5 78 16 162/71 (101) 95 Intake and Output 10/21/17 10/21/17 10/22/17 08:00 16:00 00:00 Intake Total 240 ml Balance 240 ml Assessment & Plan Problem List: (1) DEMENTIA IN OTH DISEASES CLASSD ELSWHR W BEHAVIORAL DISTURB ICD Codes: F02.81 - DEMENTIA IN OTH DISEASES CLASSD ELSWHR W BEHAVIORAL DISTURB (2) OTHER ALZHEIMER'S DISEASE ICD Codes: G30.8 - OTHER ALZHEIMER'S DISEASE Assessment & Plan Estimated LOS: days patient continues confused and demented, with early evening evening this behaviors. She medication adjustments above Justification for Cont. Inpt. At this time patient will decompensate if placed in the lower level of care Discharge Planning Please remains problematic, continue to work with family Request HC Surrog/Guard Advoc?: Yes Scooby Helms MD Oct 21, 2017 10:04
[2017-10-21 18:00] VITALS: BP 178/74; PULSE 98; RESP 18; TEMP 98; O2SAT 95
[2017-10-21] MEDS: ATORVASTATIN 40 MG TAB PO SCH (20:35)
[2017-10-21] MEDS: diphenhydrAMINE HCL 50 MG CAP - HS PRN PO (23:44)
[2017-10-21] MEDS: ACETAMINOPHEN 325 MG TAB PO PRN (23:44)
[2017-10-22 05:51] VITALS: BP 149/55; PULSE 86; RESP 16; TEMP 97.2; O2SAT 95
[2017-10-22] MEDS: ISOSORBIDE MONONITRATE 60 MG TAB PO SCH (06:21)
[2017-10-22] MEDS: DOCUSATE SODIUM 100 MG CAP PO SCH ×2 (08:20→20:52)
[2017-10-22] MEDS: FERROUS SULFATE 325 MG (65 MG ELEMENTAL IRON) TAB PO SCH (08:20)
[2017-10-22] MEDS: FAMOTIDINE 20 MG TAB PO SCH ×2 (08:20→20:51)
[2017-10-22] MEDS: METOPROLOL TARTRATE 50 MG TAB PO SCH ×2 (08:20→20:52)
[2017-10-22] MEDS ORDERED: OLANZapine 5 MG TAB PO SCH (09:00)
--- NOTE | 2017-10-22 10:40 | HHI.PYPN ---
Subjective Remarks Patient seen in her room with nurse radha, chart review, compliant medication, patient continues to show poor sleep patterns only sleeping 3-4 hours last night , continues diffusely confused and disoriented, with increased irritability lability and resistance to care through the evening. Will change Zyprexa to 7.5 mg by mouth noon, 5 PM, and 10 PM Review of Systems Except as stated in HPI: all other systems reviewed are Neg Mental Status Examination Appearance: Disheveled, Malodorous Consciousness: Alert Orientation: Person, Place Motor Activity: Other (it appears patient is using a walker will have PT assess ) Speech: Rapid, Other Language: Perseveration Fund of Knowledge: Poor Attention and Concentration: Other (poor) Memory: Impaired Mood: Irritable Affect: Irritable Thought Process & Associations: Disorganized Thought Content: Delusional Delusion Type: Paranoid Suicidal Ideation: No Suicidal Plan: No Suicidal Intention: No Homicidal Ideation: No Homicidal Plan: No Homicidal Intention: No Insight: Poor Judgment: Poor Results Labs Date/Time Source Procedure Growth Status 10/02/17 22:05 Urine Random Urine Urine Culture - Final 50-100,000 CFU/ML MIXED GRAM POSITIVE... Complete Vitals/IOs Vital Signs Date Time Temp Pulse Resp B/P (MAP) Pulse Ox O2 Delivery O2 Flow Rate FiO2 10/22/17 05:51 97.2 86 16 149/55 (86) 95 Intake and Output 10/22/17 10/22/17 10/23/17 08:00 16:00 00:00 Intake Total 60 ml Balance 60 ml Assessment & Plan Problem List: (1) DEMENTIA IN OTH DISEASES CLASSD ELSWHR W BEHAVIORAL DISTURB ICD Codes: F02.81 - DEMENTIA IN OTH DISEASES CLASSD ELSWHR W BEHAVIORAL DISTURB (2) OTHER ALZHEIMER'S DISEASE ICD Codes: G30.8 - OTHER ALZHEIMER'S DISEASE Assessment & Plan Estimated LOS: days patient continues confused and demented, some increased behavior problems towards evening with poor sleep. She medication adjustments above Justification for Cont. Inpt. At this time patient will decompensate to place to the lower level of care Discharge Planning To did work with family related to placement issues Request HC Surrog/Guard Advoc?: Yes Scooby Helms MD Oct 22, 2017 10:40
[2017-10-22] MEDS: OLANZapine 5 MG TAB PO SCH ×3 (12:00→20:52)
[2017-10-22] MEDS: hydrOXYzine HCL 50 MG TAB PO PRN (16:19)
[2017-10-22 18:00] VITALS: BP 146/74; PULSE 94; RESP 18; TEMP 98.4; O2SAT 96
[2017-10-22] MEDS: ATORVASTATIN 40 MG TAB PO SCH (20:52)
[2017-10-23] MEDS: ISOSORBIDE MONONITRATE 60 MG TAB PO SCH (05:45)
[2017-10-23 06:12] VITALS: BP 156/74; PULSE 84; RESP 20; TEMP 99; O2SAT 96
[2017-10-23] MEDS: DOCUSATE SODIUM 100 MG CAP PO SCH ×2 (09:31→21:05)
[2017-10-23] MEDS: FERROUS SULFATE 325 MG (65 MG ELEMENTAL IRON) TAB PO SCH (09:31)
[2017-10-23] MEDS: FAMOTIDINE 20 MG TAB PO SCH ×2 (09:31→21:05)
[2017-10-23] MEDS: METOPROLOL TARTRATE 50 MG TAB PO SCH ×2 (09:31→21:05)
[2017-10-23] MEDS: OLANZapine 5 MG TAB PO SCH ×3 (12:00→22:00)
--- NOTE | 2017-10-23 15:39 | HHI.PYPN ---
Subjective Remarks Patient seen in [place] with nurse keegan, chart reviewed, patient compliant medications. It appears patient still has behavioral issues into the evening towards nighttime. Patient is calm with me at this time. Need to consider perhaps shifting dosage more towards late afternoon early evening and later in the evening Review of Systems Except as stated in HPI: all other systems reviewed are Neg Mental Status Examination Appearance: Disheveled, Malodorous Consciousness: Alert Orientation: Person, Place Motor Activity: Other (it appears patient is using a walker will have PT assess ) Speech: Rapid, Other Language: Perseveration Fund of Knowledge: Poor Attention and Concentration: Other (poor) Memory: Impaired Mood: Irritable Affect: Irritable Thought Process & Associations: Disorganized Thought Content: Delusional Delusion Type: Paranoid Suicidal Ideation: No Suicidal Plan: No Suicidal Intention: No Homicidal Ideation: No Homicidal Plan: No Homicidal Intention: No Insight: Poor Judgment: Poor Results Labs Date/Time Source Procedure Growth Status 10/02/17 22:05 Urine Random Urine Urine Culture - Final 50-100,000 CFU/ML MIXED GRAM POSITIVE... Complete Vitals/IOs Vital Signs Date Time Temp Pulse Resp B/P (MAP) Pulse Ox O2 Delivery O2 Flow Rate FiO2 10/23/17 06:12 99.0 84 20 156/74 (101) 96 Intake and Output 10/23/17 10/23/17 10/24/17 08:00 16:00 00:00 Intake Total 50 ml 0 ml Balance 50 ml 0 ml Assessment & Plan Problem List: (1) DEMENTIA IN OTH DISEASES CLASSD ELSWHR W BEHAVIORAL DISTURB ICD Codes: F02.81 - DEMENTIA IN OTH DISEASES CLASSD ELSWHR W BEHAVIORAL DISTURB (2) OTHER ALZHEIMER'S DISEASE ICD Codes: G30.8 - OTHER ALZHEIMER'S DISEASE Assessment & Plan Estimated LOS: days patient continues to [place] confused, with behaviors that a more aggressive and early to late evening Justification for Cont. Inpt. At this time patient will decompensate if placed in the lower level of care Discharge Planning Continue to work with family on placement issues Request HC Surrog/Guard Advoc?: Yes Scooby Helms MD Oct 23, 2017 15:39
[2017-10-23 17:38] VITALS: BP 166/63; PULSE 104; RESP 17; TEMP 98.4; O2SAT 96
[2017-10-23] MEDS ORDERED: HALOPERIDOL LACTATE 5 MG/ML AMP IM ONE (18:41)
[2017-10-23] MEDS ORDERED: HALOPERIDOL LACTATE 5 MG/ML AMP ONE (18:45)
[2017-10-23] MEDS: ATORVASTATIN 40 MG TAB PO SCH (21:00)
[2017-10-24 06:12] VITALS: BP 155/70; PULSE 75; RESP 18; TEMP 98.5; O2SAT 93
[2017-10-24] MEDS: METOPROLOL TARTRATE 50 MG TAB PO SCH ×2 (08:14→21:19)
[2017-10-24] MEDS: FERROUS SULFATE 325 MG (65 MG ELEMENTAL IRON) TAB PO SCH (08:14)
[2017-10-24] MEDS: DOCUSATE SODIUM 100 MG CAP PO SCH ×2 (08:14→21:19)
[2017-10-24] MEDS: FAMOTIDINE 20 MG TAB PO SCH ×2 (08:14→21:20)
[2017-10-24] MEDS: ISOSORBIDE MONONITRATE 60 MG TAB PO SCH (08:17)
--- NOTE | 2017-10-24 09:10 | HHI.PYPN ---
Subjective Remarks He should seen in her room with floor staff and counselor Kandy, she sitting in [place] chair eating her breakfast though she is not using any utensils. She is somewhat quiet today though continues being confused and disoriented . Compliant medications. For now continue treatment Review of Systems Except as stated in HPI: all other systems reviewed are Neg Mental Status Examination Appearance: Disheveled, Malodorous Consciousness: Alert Orientation: Person, Place Motor Activity: Other (it appears patient is using a walker will have PT assess ) Speech: Rapid, Other Language: Perseveration Fund of Knowledge: Poor Attention and Concentration: Other (poor) Memory: Impaired Mood: Irritable Affect: Irritable Thought Process & Associations: Disorganized Thought Content: Delusional Delusion Type: Paranoid Suicidal Ideation: No Suicidal Plan: No Suicidal Intention: No Homicidal Ideation: No Homicidal Plan: No Homicidal Intention: No Insight: Poor Judgment: Poor Results Labs Date/Time Source Procedure Growth Status 10/02/17 22:05 Urine Random Urine Urine Culture - Final 50-100,000 CFU/ML MIXED GRAM POSITIVE... Complete Vitals/IOs Vital Signs Date Time Temp Pulse Resp B/P (MAP) Pulse Ox O2 Delivery O2 Flow Rate FiO2 10/24/17 06:12 98.5 75 18 155/70 (98) 93 Intake and Output 10/24/17 10/24/17 10/25/17 08:00 16:00 00:00 Intake Total 120 ml Balance 120 ml Assessment & Plan Problem List: (1) DEMENTIA IN OTH DISEASES CLASSD ELSWHR W BEHAVIORAL DISTURB ICD Codes: F02.81 - DEMENTIA IN OTH DISEASES CLASSD ELSWHR W BEHAVIORAL DISTURB (2) OTHER ALZHEIMER'S DISEASE ICD Codes: G30.8 - OTHER ALZHEIMER'S DISEASE Assessment & Plan Estimated LOS: days patient continues confused disoriented, appeared perhaps somewhat less aggressive last night. For now continue treatment Justification for Cont. Inpt. At this time patient will decompensate if placed in a lower level of care Discharge Planning Placement remains problematic continue working with counselor Request HC Surrog/Guard Advoc?: Yes Scooby Helms MD Oct 24, 2017 09:10
[2017-10-24] MEDS: OLANZapine 5 MG TAB PO SCH ×3 (12:00→21:24)
[2017-10-24 18:00] VITALS: BP 135/81; PULSE 93; RESP 18; TEMP 98.1; O2SAT 96
[2017-10-24] MEDS: ATORVASTATIN 40 MG TAB PO SCH (21:19)
[2017-10-24] MEDS: hydrOXYzine HCL 50 MG TAB PO PRN (21:20)
[2017-10-25 05:40] VITALS: BP 164/70; PULSE 84; RESP 18; TEMP 98.3; O2SAT 97
[2017-10-25] MEDS: ISOSORBIDE MONONITRATE 60 MG TAB PO SCH (05:46)
[2017-10-25] MEDS: METOPROLOL TARTRATE 50 MG TAB PO SCH ×2 (09:00→20:25)
[2017-10-25] MEDS: FAMOTIDINE 20 MG TAB PO SCH ×2 (09:00→20:25)
[2017-10-25] MEDS: FERROUS SULFATE 325 MG (65 MG ELEMENTAL IRON) TAB PO SCH (09:00)
[2017-10-25] MEDS: DOCUSATE SODIUM 100 MG CAP PO SCH ×2 (09:00→20:25)
[2017-10-25] MEDS: OLANZapine 5 MG TAB PO SCH ×3 (12:00→21:07)
--- NOTE | 2017-10-25 13:18 | HHI.PYPN ---
Subjective Remarks No changes Review of Systems ROS Limitations: Clinical Condition Except as stated in HPI: all other systems reviewed are Neg Mental Status Examination Appearance: Disheveled, Malodorous Consciousness: Alert Orientation: Person Motor Activity: Other (it appears patient is using a walker will have PT assess ) Speech: Rapid, Other Language: Perseveration Fund of Knowledge: Poor Attention and Concentration: Other (poor) Memory: Impaired Mood: Irritable Affect: Irritable Thought Process & Associations: Disorganized Thought Content: Delusional Hallucination Type: None Delusion Type: Paranoid Suicidal Ideation: No Suicidal Plan: No Suicidal Intention: No Homicidal Ideation: No Homicidal Plan: No Homicidal Intention: No Insight: Poor Judgment: Poor Results Labs Date/Time Source Procedure Growth Status 10/02/17 22:05 Urine Random Urine Urine Culture - Final 50-100,000 CFU/ML MIXED GRAM POSITIVE... Complete Vitals/IOs Vital Signs Date Time Temp Pulse Resp B/P (MAP) Pulse Ox O2 Delivery O2 Flow Rate FiO2 10/25/17 05:40 98.3 84 18 164/70 (101) 97 Intake and Output 10/25/17 10/25/17 10/26/17 08:00 16:00 00:00 Intake Total 120 ml Balance 120 ml Assessment & Plan Problem List: (1) DEMENTIA IN OTH DISEASES CLASSD ELSWHR W BEHAVIORAL DISTURB ICD Codes: F02.81 - DEMENTIA IN OTH DISEASES CLASSD ELSWHR W BEHAVIORAL DISTURB (2) OTHER ALZHEIMER'S DISEASE ICD Codes: G30.8 - OTHER ALZHEIMER'S DISEASE Assessment & Plan Estimated LOS: days. Continue current treatment plan. Justification for Cont. Inpt. Likely to decompensate at lower level of care. Request HC Surrog/Guard Advoc?: Yes Alex Stark MD Oct 25, 2017 13:18
[2017-10-25] MEDS: ATORVASTATIN 40 MG TAB PO SCH (20:26)
[2017-10-25 21:00] VITALS: BP 132/74; PULSE 84; RESP 16; TEMP 97.6; O2SAT 94
[2017-10-26 06:00] VITALS: BP 116/55; PULSE 90; RESP 16; TEMP 97.6; O2SAT 92
[2017-10-26] MEDS: ISOSORBIDE MONONITRATE 60 MG TAB PO SCH (06:22)
[2017-10-26] MEDS: METOPROLOL TARTRATE 50 MG TAB PO SCH ×2 (08:41→20:07)
[2017-10-26] MEDS: FERROUS SULFATE 325 MG (65 MG ELEMENTAL IRON) TAB PO SCH (08:41)
[2017-10-26] MEDS: DOCUSATE SODIUM 100 MG CAP PO SCH ×2 (08:41→20:06)
[2017-10-26] MEDS: FAMOTIDINE 20 MG TAB PO SCH ×2 (08:41→20:07)
[2017-10-26] MEDS: OLANZapine 5 MG TAB PO SCH ×3 (12:39→21:19)
--- NOTE | 2017-10-26 15:57 | HHI.PYPN ---
Subjective Remarks Patient was seen and case discussed with nursing. Patient is alert and oriented 1. She is pleasant and cooperative with exam. She is laughing throughout the interview asking if I want to see her walk. Compliant with medications and behaving well on the unit. No psychotic symptoms elicited Mental Status Examination Appearance: Disheveled, Malodorous Consciousness: Alert Orientation: Person Motor Activity: Other (it appears patient is using a walker will have PT assess ) Speech: Rapid, Other Language: Perseveration Fund of Knowledge: Poor Attention and Concentration: Other (poor) Memory: Impaired Mood: Irritable Affect: Irritable Thought Process & Associations: Disorganized Thought Content: Delusional Hallucination Type: None Delusion Type: Paranoid Suicidal Ideation: No Suicidal Plan: No Suicidal Intention: No Homicidal Ideation: No Homicidal Plan: No Homicidal Intention: No Insight: Poor Judgment: Poor Results Labs Date/Time Source Procedure Growth Status 10/02/17 22:05 Urine Random Urine Urine Culture - Final 50-100,000 CFU/ML MIXED GRAM POSITIVE... Complete Vitals/IOs Vital Signs Date Time Temp Pulse Resp B/P (MAP) Pulse Ox O2 Delivery O2 Flow Rate FiO2 10/26/17 06:00 97.6 90 16 116/55 (75) 92 Intake and Output 10/26/17 10/26/17 10/27/17 08:00 16:00 00:00 Intake Total 0 ml 120 ml Balance 0 ml 120 ml Assessment & Plan Problem List: (1) DEMENTIA IN OTH DISEASES CLASSD ELSWHR W BEHAVIORAL DISTURB ICD Codes: F02.81 - DEMENTIA IN OTH DISEASES CLASSD ELSWHR W BEHAVIORAL DISTURB (2) OTHER ALZHEIMER'S DISEASE ICD Codes: G30.8 - OTHER ALZHEIMER'S DISEASE Assessment & Plan Continue current treatment plan Justification for Cont. Inpt. Patient will decompensate in a less restrictive setting Request HC Surrog/Guard Advoc?: Yes Constantino Mera DO Oct 26, 2017 15:57
[2017-10-26 18:10] VITALS: BP 131/58; PULSE 97; RESP 16; TEMP 97.8; O2SAT 93
[2017-10-26] MEDS: ATORVASTATIN 40 MG TAB PO SCH (20:06)
[2017-10-27] MEDS: ISOSORBIDE MONONITRATE 60 MG TAB PO SCH (06:09)
[2017-10-27 06:10] VITALS: BP 170/76; PULSE 73; RESP 16; TEMP 97.4; O2SAT 96
[2017-10-27] MEDS: FAMOTIDINE 20 MG TAB PO SCH ×2 (08:19→21:00)
[2017-10-27] MEDS: METOPROLOL TARTRATE 50 MG TAB PO SCH ×2 (08:19→21:00)
[2017-10-27] MEDS: DOCUSATE SODIUM 100 MG CAP PO SCH ×2 (08:19→21:00)
[2017-10-27] MEDS: FERROUS SULFATE 325 MG (65 MG ELEMENTAL IRON) TAB PO SCH (08:19)
[2017-10-27] MEDS: OLANZapine 5 MG TAB PO SCH ×3 (11:56→21:54)
--- NOTE | 2017-10-27 12:39 | HHI.PYPN ---
Subjective Remarks Patient seen in day room with nurse Pallavi chart review, patient compliant medications. Patient continues calm and pleasant with me she is oriented 1. She has been no behavioral problems. Continue to work on placement issues Review of Systems Except as stated in HPI: all other systems reviewed are Neg Mental Status Examination Appearance: Disheveled, Malodorous Consciousness: Alert Orientation: Person Motor Activity: Other (it appears patient is using a walker will have PT assess ) Speech: Rapid, Other Language: Perseveration Fund of Knowledge: Poor Attention and Concentration: Other (poor) Memory: Impaired Mood: Irritable Affect: Irritable Thought Process & Associations: Disorganized Thought Content: Delusional Hallucination Type: None Delusion Type: Paranoid Suicidal Ideation: No Suicidal Plan: No Suicidal Intention: No Homicidal Ideation: No Homicidal Plan: No Homicidal Intention: No Insight: Poor Judgment: Poor Results Labs Date/Time Source Procedure Growth Status 10/02/17 22:05 Urine Random Urine Urine Culture - Final 50-100,000 CFU/ML MIXED GRAM POSITIVE... Complete Vitals/IOs Vital Signs Date Time Temp Pulse Resp B/P (MAP) Pulse Ox O2 Delivery O2 Flow Rate FiO2 10/27/17 06:10 97.4 73 16 170/76 (107) 96 Intake and Output 10/27/17 10/27/17 10/28/17 08:00 16:00 00:00 Intake Total 240 ml Balance 240 ml Assessment & Plan Problem List: (1) DEMENTIA IN OTH DISEASES CLASSD ELSWHR W BEHAVIORAL DISTURB ICD Codes: F02.81 - DEMENTIA IN OTH DISEASES CLASSD ELSWHR W BEHAVIORAL DISTURB (2) OTHER ALZHEIMER'S DISEASE ICD Codes: G30.8 - OTHER ALZHEIMER'S DISEASE Assessment & Plan Estimated LOS: days patient continues demented confused no significant behavioral problems Justification for Cont. Inpt. At this time patient will decompensate from a placed an appropriate level of care Discharge Planning Placement remains problematic Request HC Surrog/Guard Advoc?: Yes Scooby Helms MD Oct 27, 2017 12:39
[2017-10-27 17:05] VITALS: BP 170/67; PULSE 80; RESP 16; TEMP 97.6; O2SAT 96
[2017-10-27 18:28] VITALS: BP 144/54
[2017-10-27] MEDS: ATORVASTATIN 40 MG TAB PO SCH (21:00)
[2017-10-28] MEDS: hydrOXYzine HCL 50 MG TAB PO PRN (00:02)
[2017-10-28 06:00] VITALS: BP 171/69; PULSE 76; RESP 18; TEMP 97.6; O2SAT 96
[2017-10-28] MEDS: ISOSORBIDE MONONITRATE 60 MG TAB PO SCH (06:39)
[2017-10-28] MEDS: METOPROLOL TARTRATE 50 MG TAB PO SCH ×2 (08:34→20:14)
[2017-10-28] MEDS: DOCUSATE SODIUM 100 MG CAP PO SCH ×2 (08:34→20:14)
[2017-10-28] MEDS: FAMOTIDINE 20 MG TAB PO SCH ×2 (08:34→20:14)
[2017-10-28] MEDS: FERROUS SULFATE 325 MG (65 MG ELEMENTAL IRON) TAB PO SCH (08:34)
--- NOTE | 2017-10-28 10:51 | HHI.PYPN ---
Subjective Remarks Patient seen in day room with nurse darío, patient calm pleasantly confused today. Orders remain some difficulty towards later evening. Staff notes that well patient takes her HS meds that difficulty the 20/200 our Zyprexa she sometimes refuses. Will change the 20/200 our Zyprexa to at bedtime along with her other medications Review of Systems Except as stated in HPI: all other systems reviewed are Neg Mental Status Examination Appearance: Disheveled, Malodorous Consciousness: Alert Orientation: Person Motor Activity: Other (it appears patient is using a walker will have PT assess ) Speech: Rapid, Other Language: Perseveration Fund of Knowledge: Poor Attention and Concentration: Other (poor) Memory: Impaired Mood: Irritable Affect: Irritable Thought Process & Associations: Disorganized Thought Content: Delusional Hallucination Type: None Delusion Type: Paranoid Suicidal Ideation: No Suicidal Plan: No Suicidal Intention: No Homicidal Ideation: No Homicidal Plan: No Homicidal Intention: No Insight: Poor Judgment: Poor Results Labs Date/Time Source Procedure Growth Status 10/02/17 22:05 Urine Random Urine Urine Culture - Final 50-100,000 CFU/ML MIXED GRAM POSITIVE... Complete Vitals/IOs Vital Signs Date Time Temp Pulse Resp B/P (MAP) Pulse Ox O2 Delivery O2 Flow Rate FiO2 10/28/17 06:00 97.6 76 18 171/69 (103) 96 Intake and Output 10/28/17 10/28/17 10/28/17 07:59 15:59 23:59 Intake Total 120 ml Balance 120 ml Assessment & Plan Problem List: (1) DEMENTIA IN OTH DISEASES CLASSD ELSWHR W BEHAVIORAL DISTURB ICD Codes: F02.81 - DEMENTIA IN OTH DISEASES CLASSD ELSWHR W BEHAVIORAL DISTURB (2) OTHER ALZHEIMER'S DISEASE ICD Codes: G30.8 - OTHER ALZHEIMER'S DISEASE Assessment & Plan Estimated LOS: days patient confused demented though no significant behavioral problems. See medication adjustment above Justification for Cont. Inpt. At this time patient will decompensate placed on lower level of care Discharge Planning Patient remains somewhat problematic we'll continue to work with family Request HC Surrog/Guard Advoc?: Yes Scooby Helms MD Oct 28, 2017 10:51
[2017-10-28] MEDS: OLANZapine 5 MG TAB PO SCH ×2 (11:47→16:25)
[2017-10-28 17:20] VITALS: BP 158/67; PULSE 92; RESP 18; O2SAT 95
[2017-10-28] MEDS: ATORVASTATIN 40 MG TAB PO SCH (20:14)
[2017-10-28] MEDS: OLANZapine 2.5 MG TAB PO SCH (20:14)
[2017-10-29 06:10] VITALS: BP 122/60; PULSE 77; RESP 16; TEMP 97.5; O2SAT 98
[2017-10-29 06:15] VITALS: BP 178/78; PULSE 74; RESP 15; TEMP 97.2; O2SAT 100
[2017-10-29] MEDS: DOCUSATE SODIUM 100 MG CAP PO SCH ×2 (08:51→21:00)
[2017-10-29] MEDS: FAMOTIDINE 20 MG TAB PO SCH ×2 (08:51→22:38)
[2017-10-29] MEDS: METOPROLOL TARTRATE 50 MG TAB PO SCH ×2 (08:51→22:38)
[2017-10-29] MEDS: FERROUS SULFATE 325 MG (65 MG ELEMENTAL IRON) TAB PO SCH (08:51)
[2017-10-29] MEDS: ISOSORBIDE MONONITRATE 60 MG TAB PO SCH (08:51)
[2017-10-29] MEDS ORDERED: DOCU1CAP39 PO (10:20)
[2017-10-29] MEDS ORDERED: ISOS60TA PO (10:20)
[2017-10-29] MEDS ORDERED: ATOR40TA16 PO (10:20)
[2017-10-29] MEDS ORDERED: ASPI-516 CHEW (10:20)
[2017-10-29] MEDS ORDERED: OLAN5TAB PO (10:20)
[2017-10-29] MEDS ORDERED: FAMO20TA2 PO (10:20)
[2017-10-29] MEDS ORDERED: METO50TA PO (10:20)
[2017-10-29] MEDS ORDERED: FERR325T18 PO (10:20)
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
[2017-10-29] MEDS: OLANZapine 5 MG TAB PO SCH ×2 (12:00→16:06)
[2017-10-29 18:00] VITALS: BP 126/60; PULSE 84; RESP 16; TEMP 97.2; O2SAT 97
[2017-10-29] MEDS: ATORVASTATIN 40 MG TAB PO SCH (21:00)
[2017-10-29] MEDS: OLANZapine 2.5 MG TAB PO SCH (22:39)
[2017-10-30 05:53] VITALS: BP 166/74; PULSE 80; RESP 16; TEMP 97.4; O2SAT 95
[2017-10-30] MEDS: ISOSORBIDE MONONITRATE 60 MG TAB PO SCH (06:00)
[2017-10-30] MEDS: FAMOTIDINE 20 MG TAB PO SCH ×2 (08:43→20:43)
[2017-10-30] MEDS: METOPROLOL TARTRATE 50 MG TAB PO SCH ×2 (08:43→20:43)
[2017-10-30] MEDS: DOCUSATE SODIUM 100 MG CAP PO SCH ×2 (08:43→20:43)
[2017-10-30] MEDS: FERROUS SULFATE 325 MG (65 MG ELEMENTAL IRON) TAB PO SCH (08:43)
[2017-10-30] MEDS: OLANZapine 5 MG TAB PO SCH ×3 (11:52→16:37)
--- NOTE | 2017-10-30 11:56 | HHI.PYPN ---
Subjective Remarks Patient seen in dayroom today with nurse Ti, patient's discharge has been delayed due to funding issues with her placement. However she remains compliant with medications. Patient continues confused disoriented though no behavioral issues at this time. For now continue treatment overweight funding for bed so patient can be discharged Review of Systems Except as stated in HPI: all other systems reviewed are Neg Mental Status Examination Appearance: Disheveled, Malodorous Consciousness: Alert Orientation: Person Motor Activity: Other (it appears patient is using a walker will have PT assess ) Speech: Rapid, Other Language: Perseveration Fund of Knowledge: Poor Attention and Concentration: Other (poor) Memory: Impaired Mood: Irritable Affect: Irritable Thought Process & Associations: Disorganized Thought Content: Delusional Hallucination Type: None Delusion Type: Paranoid Suicidal Ideation: No Suicidal Plan: No Suicidal Intention: No Homicidal Ideation: No Homicidal Plan: No Homicidal Intention: No Insight: Poor Judgment: Poor Results Labs Date/Time Source Procedure Growth Status 10/02/17 22:05 Urine Random Urine Urine Culture - Final 50-100,000 CFU/ML MIXED GRAM POSITIVE... Complete Vitals/IOs Vital Signs Date Time Temp Pulse Resp B/P (MAP) Pulse Ox O2 Delivery O2 Flow Rate FiO2 10/30/17 05:53 97.4 80 16 166/74 (104) 95 Intake and Output 10/30/17 10/30/17 10/31/17 08:00 16:00 00:00 Intake Total 480 ml 360 ml Balance 480 ml 360 ml Assessment & Plan Problem List: (1) DEMENTIA IN OTH DISEASES CLASSD ELSWHR W BEHAVIORAL DISTURB ICD Codes: F02.81 - DEMENTIA IN OTH DISEASES CLASSD ELSWHR W BEHAVIORAL DISTURB (2) OTHER ALZHEIMER'S DISEASE ICD Codes: G30.8 - OTHER ALZHEIMER'S DISEASE Assessment & Plan Estimated LOS: days patient remains confused disoriented the most of her behavior problems. Continue to await word related to funding for bed placement so patient can be discharged Justification for Cont. Inpt. Funding not available at this time for bed placement Discharge Planning Awaiting funding to allow for better placement Request HC Surrog/Guard Advoc?: Yes Scooby Helms MD Oct 30, 2017 11:56
[2017-10-30 16:52] VITALS: BP 136/59; PULSE 112; RESP 16; TEMP 98; O2SAT 95
[2017-10-30] MEDS: OLANZapine 2.5 MG TAB PO SCH (20:43)
[2017-10-30] MEDS: ATORVASTATIN 40 MG TAB PO SCH (20:43)
[2017-10-31 06:25] VITALS: BP 124/63; PULSE 77; RESP 18; TEMP 97.6; O2SAT 96
[2017-10-31] MEDS: FERROUS SULFATE 325 MG (65 MG ELEMENTAL IRON) TAB PO SCH (08:48)
[2017-10-31] MEDS: DOCUSATE SODIUM 100 MG CAP PO SCH (08:48)
[2017-10-31] MEDS: METOPROLOL TARTRATE 50 MG TAB PO SCH (08:48)
[2017-10-31] MEDS: FAMOTIDINE 20 MG TAB PO SCH (08:48)
--- NOTE | 2017-10-31 10:22 | HHI.PYPN ---
Subjective Remarks Patient seen today in dayroom prior to discharge. It appears the financial obstacle to bend over, patient is not able to be transferred to her correction. Patient continues confused demented the most of her behavior problems. No changes in medication. To be discharged today per orders written today Review of Systems Except as stated in HPI: all other systems reviewed are Neg Mental Status Examination Appearance: Disheveled, Malodorous Consciousness: Alert Orientation: Person Motor Activity: Other (it appears patient is using a walker will have PT assess ) Speech: Rapid, Other Language: Perseveration Fund of Knowledge: Poor Attention and Concentration: Other (poor) Memory: Impaired Mood: Irritable Affect: Irritable Thought Process & Associations: Disorganized Thought Content: Delusional Hallucination Type: None Delusion Type: Paranoid Suicidal Ideation: No Suicidal Plan: No Suicidal Intention: No Homicidal Ideation: No Homicidal Plan: No Homicidal Intention: No Insight: Poor Judgment: Poor Results Labs Date/Time Source Procedure Growth Status 10/02/17 22:05 Urine Random Urine Urine Culture - Final 50-100,000 CFU/ML MIXED GRAM POSITIVE... Complete Vitals/IOs Vital Signs Date Time Temp Pulse Resp B/P (MAP) Pulse Ox O2 Delivery O2 Flow Rate FiO2 10/31/17 06:25 97.6 77 18 124/63 (83) 96 Assessment & Plan Problem List: (1) DEMENTIA IN OTH DISEASES CLASSD ELSWHR W BEHAVIORAL DISTURB ICD Codes: F02.81 - DEMENTIA IN OTH DISEASES CLASSD ELSWHR W BEHAVIORAL DISTURB (2) OTHER ALZHEIMER'S DISEASE ICD Codes: G30.8 - OTHER ALZHEIMER'S DISEASE Assessment & Plan Estimated LOS: days discharged today to correction Justification for Cont. Inpt. Discharged today to correction Discharge Planning Discharged today to correction Request HC Surrog/Guard Advoc?: Yes Scooby Helms MD Oct 31, 2017 10:22
== END 2017-10-31 09:55 | DRG 57 ==
LOC: NEPE 20:51 → NEDA 10-03 05:25 → H260 10-03 06:00 → H250 10-08 20:05 → H4EA 10-14 15:45 → H250 10-25 17:38
PROVIDERS: ADMIT Psychiatry & Neurology Psychiatry; ATTEND Psychiatry & Neurology Psychiatry
DX: G30.9 Alzheimer's disease, unspecified (principal); N17.9 Acute kidney failure, unspecified; F02.81 Dementia in other diseases classified elsewhere, unspecified severity, with behavioral disturbance; N39.0 Urinary tract infection, site not specified; I12.9 Hypertensive chronic kidney disease with stage 1 through stage 4 chronic kidney disease, or unspecified chronic kidney disease; K21.9 Gastro-esophageal reflux disease without esophagitis; N18.9 Chronic kidney disease, unspecified; I25.10 Atherosclerotic heart disease of native coronary artery without angina pectoris; E78.5 Hyperlipidemia, unspecified; M19.90 Unspecified osteoarthritis, unspecified site; Z79.01 Long term (current) use of anticoagulants; Z86.718 Personal history of other venous thrombosis and embolism
CPT/HCPCS: 80048; 80053; 80061; 80307; 81001; 83036; 85025; 87086; 96365; J0696; J1630; J2060; Q0163